=== PATIENT | male | born 1940 | race Caucasian/White ===

== ENCOUNTER 2017-07-10 20:09 | Inpatient (IN) | payer MEDICARE, SELFPAY ==
[2017-07-10] VITALS (7 sets, daily range): BP systolic 118–183; BP diastolic 74–103; PULSE 103–131; RESP 16–24; TEMP 36.6–37.2; O2SAT 95–100; BMI 37.7; BMI 37.4
--- NOTE | 2017-07-10 20:18 | EKG12_ITS ---
Test Reason : RAPID HR Blood Pressure : / mmHG Vent. Rate : 145 BPM Atrial Rate : 141 BPM P-R Int : 000 ms QRS Dur : 088 ms QT Int : 300 ms P-R-T Axes : 000 -14 025 degrees QTc Int : 466 ms Atrial fibrillation Otherwise normal ECG Reconfirmed by PATI BARROSO, JUSTIN ([id number]), editorial writer GREG FLORENCE ([id number]) on 07/14/2017 1:48:38 PM Referred By: DR BUTLER Confirmed By:JUSTIN KRUEGER MD
--- NOTE | 2017-07-10 20:18 | RAD_ITS ---
XR Chest 2 Views INDICATION: COUGH X2 WEEKS. STATES TODAY HE STARTED COUGHING UP BLOOD. HX ND COMPARISON: March 18, 2016 TECHNIQUE: 2 views of the chest FINDINGS: Heart size and pulmonary vascularity are within normal limits. Sternotomy wires are noted. Hazy airspace opacity is seen in the right middle lobe, new from previous exam. The left lung is clear. Multiple air-filled small bowel loops are seen in the upper abdomen. RAD/Chest PA and Lateral IMPRESSION: Right middle lobe opacity, may represent pneumonia, mass, or hemorrhage. Consider further migration with CT or follow-up to resolution. at 2139 Reported and signed by: Alexus Kevin MD Electronically Signed: Alexus Kevin MD at 20:37 EDT Tel , Service support ,
--- NOTE | 2017-07-10 20:19 | NURSING ---
RN CALLED FOR EKG, PULLED OLD EKG'S FOR
[2017-07-10 20:41] LABS: Absolute Lymphocyte Count 1.55 X10^3/ul (0.83-4.51); Absolute Neutrophil Count 11.6 X10^3/uL (2.0-7.7); Basophil# 0.02 X10^3/uL; Basophil% 0.1 % (0-1); Eosinophil# 0.04 X10^3/uL; Eosinophils% 0.3 % (0-5); Hemoglobin 13.1 g/dl (13.0-16.5); Lymphocyte # 1.55 X10^3/ul (4.0); Lymphocyte % 10.7 % (19-41); Mean Corpuscular Hgb 28.2 pg (27.0-32.0); Mean Corpuscular Volume 88.4 fL (80-94); Mean Platelet Vol. 10.2 fl (6.2-12.0); Monocyte# 1.29 X10^3/uL; Monocyte% 8.9 % (0-10); Neutrophil # 11.58 X10^3/uL (2.7-7.7); Neutrophil % 79.9 % (47-70); Platelet Count 221 K/mm3 (150-450); RBC Distribution Width CV 14.5 % (11.6-14.6); RBC Distribution Width SD 46.8 fl (35.1-43.9); Red Blood Count 4.64 M/mm3 (4.6-6.2); White Blood Count 14.5 K/mm3 (4.4-11.0)
[2017-07-10 20:45] LABS: International Normalized Ratio 1.4; POSITIVE COUNT NO; POSITIVE DIFFERENTIAL NO; POSITIVE MORPHOLOGY NO; Prothrombin Time (Protime)PT. 17.2 SECONDS (11.7-14.9)
[2017-07-10 20:56] LABS: Anion Gap 5 (5-15); BUN 22 mg/dL (7-18); BUN/Creat Ratio 17.5 RATIO (10-20); Calcium,Total 8.5 mg/dL (8.5-10.1); Chloride 104 mmol/L (98-107); Creatinine, Serum 1.26 mg/dL (0.70-1.30); EST Glomerular Filtration Rate 59 mL/min (>60); Est Glom Filt Rate - Afr Amer 72 mL/min (>60); Estimated Creatinine Clearance 42.42 ml/min; Glucose 109 mg/dL (74-106); Potassium 4.6 mmol/L (3.5-5.1); Sodium Level 139 mmol/L (136-145)
[2017-07-10 21:01] LABS: D-Dimer Quantitative (DVT/PE) 0.65 FEU/ug/m (0.27-0.49)
--- NOTE | 2017-07-10 21:08 | CT_ITS ---
CTA Chest WO/W Contrast INDICATION: COUGH X 2 WEEKS, HEMOPTYSIS TODAY, HX HTN,MO,CABG,DIAB COMPARISON: None TECHNIQUE: High resolution axial CT imaging of the chest during intravenous contrast administration, CTA protocol. Multiplanar and MIP reformatted images. 100 mL of Isovue-370 were given intraveniously. Radiation dose optimization technique applied. FINDINGS: There is no evidence of pulmonary arterial filling defect to suggest PE. Aortic arch demonstrates mild arteriosclerotic disease, no evidence of aneurysm formation or dissection. Heart size is enlarged. Few mildly prominent mediastinal lymph nodes are seen. There is alveolar opacity in the right middle lobe anteriorly abutting. There is no evidence of pneumothorax or pleural effusion. A radiolucent gallstone is seen in the gallbladder. CT/CTA Chest W/WO Contrast IMPRESSION: Alveolar opacities in the right middle lobe anteriorly, may represent alveolar fluid, possibly hemorrhage. Associated infection not excluded. Follow-up recommended. No evidence of pleural effusion. Reminder of the lungs are clear. at 2221 Reported and signed by: Alexus Kevin MD Electronically Signed: Alexus Kevin MD at 21:19 EDT Tel , Service support ,
--- NOTE | 2017-07-10 21:09 | ED.RN ---
DR. PAYTON AWARE OF ELEVATED D-DIMER
--- NOTE | 2017-07-10 21:13 | ED.RN ---
PT UNABLE TO VERIFY MEDICATION LIST. FAMILY AT BEDSIDE UNABLE TO GIVE LIST OF MEDICATION
[2017-07-10] MEDS: dilTIAZem 25 MG/5 ML Vial 20 MG IV BOLUS (21:46)
--- NOTE | 2017-07-10 22:29 | ED.VISSUMM ---
- ER Visit Summary Date of Service: 07/10/17 Chief Complaint: [] Hemoptysis History of Present Illness: The patient is a 77 M [] complaining of cough for 2 weeks with URI symptoms. Reports hemoptysis started proximally 8 hours ago. Denies fevers. Denies chest pain. Reports mild shortness of breath. Past medical history of CAD status post CABG, diabetes, hypertension, cholesterol, renal insufficiency. 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 Physical Examination: [] BP 159/90, temperature 98, heart rate 131, respiratory rate 16, pulse ox 96% on room air. Obese elderly male in no acute distress. Cardiovascular exam is irregularly irregular consistent with atrial fibrillation. Lung exam reveals equal breath sounds bilaterally. Diminished sounds. Abdomen is obese, soft, nontender. There is no significant lower extremity edema. Remainder of exam is unremarkable. Test Results: [] White blood cell count elevated 14.5. BMP normal. INR 1.4. Troponin negative at 0.02. D-dimer indeterminate 0.65. EKG shows atrial fibrillation with a rate of 145 with occasional PVCs. This is changed from previous EKG of normal sinus rhythm. Chest x-ray 1 view shows questionable right sided infiltrate. CT of the chest confirms questionable alveolar hemorrhage versus infiltrate. Emergency Department Course and Treatment: [] In questioning the patient about the atrial fibrillation it is unclear as a new onset dysrhythmia, however it appears he does not have a previous history of atrial fibrillation in our records. Patient was given intravenous Rocephin and azithromycin after blood cultures were obtained for the mini acquired pneumonia. Patient was given intravenous Cardizem to control his atrial fibrillation. Case discussed with hospitalist for admission. Treatment Plan: [] Intravenous antibiotics for pneumonia, medication and evaluation by cardiology for control of new onset atrial fibrillation. Disposition: [] Admit, stable Impression: [] New onset atrial fibrillation Community acquired pneumonia This note was generated with [employer] dictation software. It may contain incorrect words, spelling, and punctuation that were not noted in review of the chart prior to signing ED Disposition - Plan for ED Patient: Chief Complaint: Cough Referrals: Obed Marinelli MD [Primary Care Provider] -
--- NOTE | 2017-07-10 22:31 | PCM.HP.STD ---
Problem List (1) Obesity Status: Chronic Qualifiers: Obesity type: due to excess calories Obesity classification: adult class 2 (BMI 35 - 39.9) Serious obesity comorbidity presence: unspecified whether serious comorbidity present Body mass index: BMI 37.0-37.9 Qualified Code(s): E66.09 - Other obesity due to excess calories; Z68.37 - Body mass index (BMI) 37.0-37.9, adult (2) Hyperlipidemia Status: Chronic Qualifiers: Hyperlipidemia type: pure hypercholesterolemia Qualified Code(s): E78.00 - Pure hypercholesterolemia, unspecified; E78.0 - Pure hypercholesterolemia (3) Atherosclerotic heart disease of [place] coronary artery without angina pectoris Status: Chronic Qualifiers: [place] vs. transplanted heart: unspecified whether [place] or transplanted heart Qualified Code(s): I25.10 - Atherosclerotic heart disease of [place] coronary artery without angina pectoris (4) Ischemic cardiomyopathy Status: Chronic (5) Aortocoronary bypass status Status: Chronic Comment: CABG X 3 GUAMAN to LAD, SVG to Ramus intermedius branch of the Cx as well as lateral Cx & endovein harvesting technique (6) Hypertension Status: Chronic Qualifiers: Hypertension type: essential hypertension Qualified Code(s): I10 - Essential (primary) hypertension (7) Obstructive sleep apnea Status: Chronic (8) GERD (gastroesophageal reflux disease) Status: Chronic Qualifiers: Esophagitis presence: esophagitis presence not specified Qualified Code(s): K21.9 - Gastro-esophageal reflux disease without esophagitis (9) Diastolic congestive heart failure Status: Chronic Qualifiers: Heart failure chronicity: chronic Qualified Code(s): I50.32 - Chronic diastolic (congestive) heart failure (10) Non-ST elevation [place] (NSTEMI) Status: Chronic (11) CAD (coronary artery disease) Status: Chronic Qualifiers: Coronary Disease-Associated Artery/Lesion type: unspecified vessel or lesion type [place] vs. 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 The patient is a 77 y/o M w/ PMHx: CAD s/p CABG x 3 following w/ Dr. Moscoso, HTN, HLD, Obesity, Ischemic Cardiomyopathy, Diastolic CHF, CAROLYN, GERD, Diabetes mellitus type II who presents to the [facility] ED on 07/10/17 with ongoing productive cough, harsh per his report with mild dyspnea with onset on day of ED presentation hemoptysis and chills without fever. In the ED patient gave notable sputum Cx that was noted to have BRB in the sputum. In the ED work-up included T 98, HR 131-->108, BP 159/90-->118/94, RR 16, 96% on RA, CBC w/ WBC 14.5 HGb 13.1, Plts 221 with L shift, PT 17.2, INR 1.4, D-dimer 0.65, BMP w/ BUN/Cr 22/1.26, glucose 106, trop < 0.02, CXR w/ RML opacity with follow-up CTPA w/ alveolar opacities in the right middle lobe anteriorly technical sales representatives light cleaning of alveolar fluid with associated infection, no evidence of pleural effusion, EKG w/ new onset atrial fibrillation w/ RVR, sputum Cx obtained and pending. In the ED patient administered Cardizem 20 mg IV x 1 with improvement of rate to 110-120s. 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) Premature ventricular contractions (Chronic) Hypertension (Chronic) Obstructive sleep apnea (Chronic) GERD (gastroesophageal reflux disease) (Chronic) Morbid obesity (Chronic) Dyslipidemia (Chronic) Diastolic congestive heart failure (Chronic) Non-ST elevation [place] (NSTEMI) (Chronic) CAD (coronary artery disease) (Chronic) Diabetes (Chronic) Allergies No Known Allergies Allergy (Verified 07/10/17 20:14) Home Medications: Ambulatory Orders Medication Instructions Recorded Aspirin [Aspir-Low] 81 mg PO DAILY 03/18/16 Atorvastatin Calcium [Lipitor] 40 mg PO DAILY 03/18/16 Cholecalciferol (Vitamin D3) 2,000 unit PO DAILY 03/18/16 [Vitamin D3] Cranberry 1 tab PO DAILY 03/18/16 Insulin Regular, Human [Humulin R] 8 unit SQ BID 03/18/16 Lisinopril [Zestril] 20 mg PO QHS 03/18/16 Omeprazole [Prilosec] 20 mg PO DAILY 03/18/16 Vitamin A 1 tab PO DAILY 03/18/16 Nitroglycerin [Nitrostat] 0.4 mg SUBLINGUAL Q5M PRN #1 bottle 03/19/16 isosorbide mononitrate ER 60 mg 60 mg PO DAILY #90 tab 04/14/17 tablet,extended release 24 hr magnesium oxide 400 mg tablet 400 mg PO DAILY #90 tab 04/14/17 carvedilol 25 mg tablet 25 mg PO BID #180 tab 06/23/17 Surgical History: - - cabg 2009 Psychiatric History: No pertinent psych hx Smoking Status: Never smoker Tobacco Use: Non-smoker Alcohol: None Drugs: None - *Family History Maternal History Items: - - Mother with a history of diabetes, hypertension, TIA. Paternal History Items: - - Father with a history of coronary artery disease, [place]. Review of Systems Constitutional: Reports: Chills, Malaise, Weakness, Fatigue. Denies: Fever, Weight Change HEENT: Denies: Head Aches, Sinus Congestion, Sinus Drainage Cardiovascular: Denies: Chest Pain, Palpitations Respiratory: Reports: Cough, Hemoptysis, Shortness of Breath, Shortness of breath at rest, Shortness of breath upon exertion, Sputum production, Wheezing Gastrointestinal: Denies: Abdominal Pain, Nausea, Vomiting Genitourinary: Denies: Dysuria Musculoskeletal: Denies: Joint Pain, Joint Tenderness Skin: Denies: Rash, Wounds Neurological: Denies: Numbness, Tingling, Focal weakness Psychiatric: Denies: Anxiety, Depression, Homicidal Ideations, Suicidal Ideations VTE Information - Inpt Only VTE Present on Admission: No VTE Mechan Device Prophylaxis: SCD's VTE Pharm Prophylaxis ordered?: No Reason prophylaxis not ordered:: Medical Contraindication Patient Problems: Active and Suspected Problems Pneumonia (Acute) Atrial fibrillation with RVR (Acute) Subjective: Seated upright in the ED bed, fatigued appearance, NAD, some harsh coughing noted while in room. Objective: Physical Examination: General: awake, alert, oriented x 3 and cooperative, seated upright in the ED bed in no apparent distress, fatigued appearance. Skin: normal color, turgor, no icterus, cyanosis. HEENT: AT/NC, EOMI, PERRLA, dry MM, no carotid bruits or JVD noted. Lungs: Diminished BS, R sided, coarse, rhonchorous, expiratory wheezing, decreased effort, harsh coughing w/ increased effort. Heart: Irregular irregular; no gallop, rub audible, MSM. Abdomen: soft, obese, NTTP, ND, normal BS, no HSM; however, habitus makes examination difficult. Extremities: no cyanosis, clubbing, BL ankle. Neurological: patient awake, alert, oriented x 3; cognitive function intact; pupils equally reactive to light and accomodation; cranial nerves II-XII grossly normal, moving all 4 extremities, no focal deficits, strength severely globally decreased secondary to acute presentation. Psychiatric: affect appears mildly flat, no acute evidence of depressive or anxiety feelings. - Physical Exam Vital Signs Temp Pulse Resp BP Pulse Ox 98 F 108 H 21 H 118/94 H 97 07/10/17 20:09 07/10/17 22:25 07/10/17 22:25 07/10/17 22:25 07/10/17 22:25 Oxygen Flow Rate (L/min) 2 Oxygen Delivery Method Nasal Cannula Weight: 219 lb 12.814 oz Body Mass Index (BMI) 37.7 Laboratory Tests Past 24 Hrs 07/10/17 07/10/17 07/10/17 20:23 20:23 20:23 WBC 14.5 H RBC 4.64 Hgb 13.1 Hct 41.0 MCV 88.4 MCH 28.2 MCHC 32.0 RDW 14.5 RDW Differential 46.8 H Plt Count 221 MPV 10.2 Immature Gran % (Auto) 0.100 Neut % (Auto) 79.9 H Lymph % (Auto) 10.7 L [place] % (Auto) 8.9 Eos % (Auto) 0.3 Baso % (Auto) 0.1 Absolute Neuts (auto) 11.6 H Absolute Lymphs (auto) 1.55 Total Counted Not Reportable PT 17.2 H INR 1.4 D-Dimer Quant (PE/DVT) 0.65 H* Sodium 139 Potassium 4.6 Chloride 104 Carbon Dioxide 30.0 Anion Gap 5 BUN 22 H Creatinine 1.26 Estim Creat Clear Calc 42.42 Est GFR (MDRD) Af Amer 72 Est GFR (MDRD) Non-Af 59 L BUN/Creatinine Ratio 17.5 Glucose 109 H Calcium 8.5 Troponin I < 0.02 Assessment/Plan Active and Suspected Problems Pneumonia (Acute) Atrial fibrillation with RVR (Acute) The patient is a 77 y/o M w/ PMHx: CAD s/p CABG x 3 following w/ Dr. Moscoso, HTN, HLD, Obesity, Ischemic Cardiomyopathy, Diastolic CHF, CAROLYN, GERD, Diabetes mellitus type II who presents to the [facility] ED on 07/10/17 with ongoing productive cough, harsh per his report with mild dyspnea with onset on day of ED presentation hemoptysis and chills without fever. (1) Community Acquired Pneumonia: CXR in the ED w/ RML PNA, CTPA w/ findings RML, also concurrent onset on day of presentation of hemoptysis. Admission CBC w/ WBC 14.5, hemoglobin 13.1, platelet 221 with left shift. Will maintain on oxygen with wean as tolerated to room air, continue ATC duonebs, PRN albuterol, maintained on IV Rocephin and Azithromycin, HOB, IS parameters w/ pending sputum cultures and urine antigens. Pending ED Bld Cx also. Given abnormal appearing CTPA with RML changes and notable hemoptysis will request pulmonary evaluation also. (2) New onset, Paroxsymal atrial fibrillation w/ RVR: EKG in ED w/ atrial fibrillation w/ RVR. Patient administered Cardizem 20 mg IV ?1 in ED. Will admit to PCU, maintain on telemetry, obtain cardiac enzyme serial set, obtain magnesium level, obtain ECHO given remotely performed 2015, obtain TSH level. CHADs scoring appropriate for anticoagulation start at this time; however, patient concurrent presentation w/ CAP and this is concerning thus will forego anticoagulation and also hold any chemoprophylaxis. Will maintain on cardizem drip given ongoing elevated rate in the ED. Consider Cardiology assessment if not improving w/ treatment with drip and treatment concurrent CAP as noted #1. (3) Chronic Diastolic CHF, Ischemic Cardiomyopathy: Holding ASA, conptinue home statin, BB, ACEI. 03/18/16 ECHO w/ normal LV size, EF 55%, moderate concentric LVH. (4) CAD: s/p CABG x 3, following w/ Dr. Moscoso, holding ASA, continue home statin, BB. (5) Hypertension: Continue home regimen including coreg, lisinopril, isosorbide with hold parameters, PRN hydralazine. (6) Hyperlipidemia: Maintain on home statin. (7) CAROLYN: CPAP q HS. (8) GERD: Famotidine. (9) Diabetes mellitus type II: Hold oral home regimen, continue home insulin regimen, ADA diet, accu checks w/ ISS. (10) DVT Prophylaxis: SCDs, defer chemoprophylaxis given notable hemoptysis presentation. (11) CODE status: Discussed CODE status at length given notable comorbidities and acute presentation, including difference between FULL code, DNR-CCA and DNR-CC status. Following discussions about the differences in these status, requested FULL code status. Advanced Care Planning Face to Face Time: 18 minutes. Code Visit Inpatient E&M: 95511 Init Hosp L3 Procedures: 44943 Advncd Care Plan 30 Min
--- NOTE | 2017-07-10 22:33 | ED.DCSUM_ITS ---
- ER Visit Summary Date of Service: 07/10/17 Chief Complaint: [] Hemoptysis History of Present Illness: The patient is a 77 M [] complaining of cough for 2 weeks with URI symptoms. Reports hemoptysis started proximally 8 hours ago. Denies fevers. Denies chest pain. Reports mild shortness of breath. Past medical history of CAD status post CABG, diabetes, hypertension, cholesterol, renal insufficiency. 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 Physical Examination: [] BP 159/90, temperature 98, heart rate 131, respiratory rate 16, pulse ox 96% on room air. Obese elderly male in no acute distress. Cardiovascular exam is irregularly irregular consistent with atrial fibrillation. Lung exam reveals equal breath sounds bilaterally. Diminished sounds. Abdomen is obese, soft, nontender. There is no significant lower extremity edema. Remainder of exam is unremarkable. Test Results: [] White blood cell count elevated 14.5. BMP normal. INR 1.4. Troponin negative at 0.02. D-dimer indeterminate 0.65. EKG shows atrial fibrillation with a rate of 145 with occasional PVCs. This is changed from previous EKG of normal sinus rhythm. Chest x-ray 1 view shows questionable right sided infiltrate. CT of the chest confirms questionable alveolar hemorrhage versus infiltrate. Emergency Department Course and Treatment: [] In questioning the patient about the atrial fibrillation it is unclear as a new onset dysrhythmia, however it appears he does not have a previous history of atrial fibrillation in our records. Patient was given intravenous Rocephin and azithromycin after blood cultures were obtained for the mini acquired pneumonia. Patient was given intravenous Cardizem to control his atrial fibrillation. Case discussed with hospitalist for admission. Treatment Plan: [] Intravenous antibiotics for pneumonia, medication and evaluation by cardiology for control of new onset atrial fibrillation. Disposition: [] Admit, stable Impression: [] New onset atrial fibrillation Community acquired pneumonia This note was generated with [email or web address] dictation software. It may contain incorrect words, spelling, and punctuation that were not noted in review of the chart prior to signing ED Disposition - Plan for ED Patient: Chief Complaint: Cough Referrals: Obed Marinelli MD [Primary Care Provider] -
--- NOTE | 2017-07-10 22:46 | HP.PCM_ITS ---
Problem List (1) Obesity Status: Chronic Qualifiers: Obesity type: due to excess calories Obesity classification: adult class 2 (BMI 35 - 39.9) Serious obesity comorbidity presence: unspecified whether serious comorbidity present Body mass index: BMI 37.0-37.9 Qualified Code(s) : E66.09 - Other obesity due to excess calories; Z68.37 - Body mass index (BMI) 37.0-37.9, adult (2) Hyperlipidemia Status: Chronic Qualifiers: Hyperlipidemia type: pure hypercholesterolemia Qualified Code(s): E78.00 - Pure hypercholesterolemia, unspecified; E78.0 - Pure hypercholesterolemia (3) Atherosclerotic heart disease of [place] coronary artery without angina pectoris Status: Chronic Qualifiers: [place] vs. transplanted heart: unspecified whether [place] or transplanted heart Qualified Code(s): I25.10 - Atherosclerotic heart disease of [place] coronary artery without angina pectoris (4) Ischemic cardiomyopathy Status: Chronic (5) Aortocoronary bypass status Status: Chronic Comment: CABG X 3 GUAMAN to LAD, SVG to Ramus intermedius branch of the Cx as well as lateral Cx & endovein harvesting technique (6) Hypertension Status: Chronic Qualifiers: Hypertension type: essential hypertension Qualified Code(s): I10 - Essential (primary) hypertension (7) Obstructive sleep apnea Status: Chronic (8) GERD (gastroesophageal reflux disease) Status: Chronic Qualifiers: Esophagitis presence: esophagitis presence not specified Qualified Code(s) : K21.9 - Gastro-esophageal reflux disease without esophagitis (9) Diastolic congestive heart failure Status: Chronic Qualifiers: Heart failure chronicity: chronic Qualified Code(s): I50.32 - Chronic diastolic (congestive) heart failure (10) Non-ST elevation [place] (NSTEMI) Status: Chronic (11) CAD (coronary artery disease) Status: Chronic Qualifiers: Coronary Disease-Associated Artery/Lesion type: unspecified vessel or lesion type [place] vs. transplanted heart: unspecified whether [place] or transplanted heart Associated angina: angina presence unspecified Qualified Code(s): I25.10 - Atherosclerotic heart disease of [place] coronary artery without angina pectoris (12) Diabetes Status: Chronic Qualifiers: Diabetes mellitus type: type 2 Diabetes mellitus group home insulin use: with manager terminal use Diabetes mellitus complication status: with unspecified complications Qualified Code(s): E11.8 - Type 2 diabetes mellitus with unspecified complications; Z79.4 - MCC (current) use of insulin (13) Pneumonia Status: Acute Qualifiers: Pneumonia type: due to unspecified organism Laterality: right Lung location: middle lobe of lung Qualified Code(s): J18.1 - Lobar pneumonia, unspecified organism (14) Atrial fibrillation with RVR Status: Acute History of Present Illness Date of Admission: 07/10/17 Chief Complaint: Cough, congestion. The patient is a 77 y/o M w/ PMHx: CAD s/p CABG x 3 following w/ Dr. Moscoso, HTN , HLD, Obesity, Ischemic Cardiomyopathy, Diastolic CHF, CAROLYN, GERD, Diabetes mellitus type II who presents to the [facility] ED on 07/10/17 with ongoing productive cough, harsh per his report with mild dyspnea with onset on day of ED presentation hemoptysis and chills without fever. In the ED patient gave notable sputum Cx that was noted to have BRB in the sputum. 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 In the ED patient administered Cardizem 20 mg IV x 1 with improvement of rate to 110-120s. 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) Premature ventricular contractions (Chronic) Hypertension (Chronic) Obstructive sleep apnea (Chronic) GERD (gastroesophageal reflux disease) (Chronic) Morbid obesity (Chronic) Dyslipidemia (Chronic) Diastolic congestive heart failure (Chronic) Non-ST elevation [place] (NSTEMI) (Chronic) CAD (coronary artery disease) (Chronic) Diabetes (Chronic) Allergies No Known Allergies Allergy (Verified 07/10/17 20:14) Home Medications: Ambulatory Orders Medication Instructions Recorded Aspirin [Aspir-Low] 81 mg PO DAILY 03/18/16 Atorvastatin Calcium [Lipitor] 40 mg PO DAILY 03/18/16 Cholecalciferol (Vitamin D3) 2,000 unit PO DAILY 03/18/16 [Vitamin D3] Cranberry 1 tab PO DAILY 03/18/16 Insulin Regular, Human [Humulin R] 8 unit SQ BID 03/18/16 Lisinopril [Zestril] 20 mg PO QHS 03/18/16 Omeprazole [Prilosec] 20 mg PO DAILY 03/18/16 Vitamin A 1 tab PO DAILY 03/18/16 Nitroglycerin [Nitrostat] 0.4 mg SUBLINGUAL Q5M PRN #1 bottle 03/19/16 isosorbide mononitrate ER 60 mg 60 mg PO DAILY #90 tab 04/14/17 tablet,extended release 24 hr magnesium oxide 400 mg tablet 400 mg PO DAILY #90 tab 04/14/17 carvedilol 25 mg tablet 25 mg PO BID #180 tab 06/23/17 Surgical History: - - cabg 2009 Psychiatric History: No pertinent psych hx Smoking Status: Never smoker Tobacco Use: Non-smoker Alcohol: None Drugs: None - *Family History Maternal History Items: - - Mother with a history of diabetes, hypertension, TIA. Paternal History Items: - - Father with a history of coronary artery disease, [place]. Review of Systems Constitutional: Reports: Chills, Malaise, Weakness, Fatigue. Denies: Fever, Weight Change HEENT: Denies: Head Aches, Sinus Congestion, Sinus Drainage Cardiovascular: Denies: Chest Pain, Palpitations Respiratory: Reports: Cough, Hemoptysis, Shortness of Breath, Shortness of breath at rest, Shortness of breath upon exertion, Sputum production, Wheezing Gastrointestinal: Denies: Abdominal Pain, Nausea, Vomiting Genitourinary: Denies: Dysuria Musculoskeletal: Denies: Joint Pain, Joint Tenderness Skin: Denies: Rash, Wounds Neurological: Denies: Numbness, Tingling, Focal weakness Psychiatric: Denies: Anxiety, Depression, Homicidal Ideations, Suicidal Ideations VTE Information - Inpt Only VTE Present on Admission: No VTE Mechan Device Prophylaxis: SCD's VTE Pharm Prophylaxis ordered?: No Reason prophylaxis not ordered:: Medical Contraindication Patient Problems: Active and Suspected Problems Pneumonia (Acute) Atrial fibrillation with RVR (Acute) Subjective: Seated upright in the ED bed, fatigued appearance, NAD, some harsh coughing noted while in room. Objective: Physical Examination: General: awake, alert, oriented x 3 and cooperative, seated upright in the ED bed in no apparent distress, fatigued appearance. Skin: normal color, turgor, no icterus, cyanosis. HEENT: AT/NC, EOMI, PERRLA, dry MM, no carotid bruits or JVD noted. Lungs: Diminished BS, R sided, coarse, rhonchorous, expiratory wheezing, decreased effort, harsh coughing w/ increased effort. Heart: Irregular irregular; no gallop, rub audible, MSM. Abdomen: soft, obese, NTTP, ND, normal BS, no HSM; however, habitus makes examination difficult. Extremities: no cyanosis, clubbing, BL ankle. Neurological: patient awake, alert, oriented x 3; cognitive function intact; pupils equally reactive to light and accomodation; cranial nerves II-XII grossly normal, moving all 4 extremities, no focal deficits, strength severely globally decreased secondary to acute presentation. Psychiatric: affect appears mildly flat, no acute evidence of depressive or anxiety feelings. - Physical Exam Vital Signs Temp Pulse Resp BP Pulse Ox 98 F 108 H 21 H 118/94 H 97 07/10/17 20:09 07/10/17 22:25 07/10/17 22:25 07/10/17 22:25 07/10/17 22:25 Oxygen Flow Rate (L/min) 2 Oxygen Delivery Method Nasal Cannula Weight: 219 lb 12.814 oz Body Mass Index (BMI) 37.7 Laboratory Tests Past 24 Hrs 07/10/17 07/10/17 07/10/17 20:23 20:23 20:23 WBC 14.5 H RBC 4.64 Hgb 13.1 Hct 41.0 MCV 88.4 MCH 28.2 MCHC 32.0 RDW 14.5 RDW Differential 46.8 H Plt Count 221 MPV 10.2 Immature Gran % (Auto) 0.100 Neut % (Auto) 79.9 H Lymph % (Auto) 10.7 L [place] % (Auto) 8.9 Eos % (Auto) 0.3 Baso % (Auto) 0.1 Absolute Neuts (auto) 11.6 H Absolute Lymphs (auto) 1.55 Total Counted Not Reportable PT 17.2 H INR 1.4 D-Dimer Quant (PE/DVT) 0.65 H* Sodium 139 Potassium 4.6 Chloride 104 Carbon Dioxide 30.0 Anion Gap 5 BUN 22 H Creatinine 1.26 Estim Creat Clear Calc 42.42 Est GFR (MDRD) Af Amer 72 Est GFR (MDRD) Non-Af 59 L BUN/Creatinine Ratio 17.5 Glucose 109 H Calcium 8.5 Troponin I < 0.02 Assessment/Plan Active and Suspected Problems Pneumonia (Acute) Atrial fibrillation with RVR (Acute) The patient is a 77 y/o M w/ PMHx: CAD s/p CABG x 3 following w/ Dr. Moscoso, HTN , HLD, Obesity, Ischemic Cardiomyopathy, Diastolic CHF, CAROLYN, GERD, Diabetes mellitus type II who presents to the [facility] ED on 07/10/17 with ongoing productive cough, harsh per his report with mild dyspnea with onset on day of ED presentation hemoptysis and chills without fever. (1) Community Acquired Pneumonia: CXR in the ED w/ RML PNA, CTPA w/ findings RML , also concurrent onset on day of presentation of hemoptysis. Admission CBC w/ WBC 14.5, hemoglobin 13.1, platelet 221 with left shift. Will maintain on oxygen with wean as tolerated to room air, continue ATC duonebs, PRN albuterol, maintained on IV Rocephin and Azithromycin, HOB, IS parameters w/ pending sputum cultures and urine antigens. Pending ED Bld Cx also. Given abnormal appearing CTPA with RML changes and notable hemoptysis will request pulmonary evaluation also. (2) New onset, Paroxsymal atrial fibrillation w/ RVR: EKG in ED w/ atrial fibrillation w/ RVR. Patient administered Cardizem 20 mg IV ?1 in ED. Will admit to PCU, maintain on telemetry, obtain cardiac enzyme serial set, obtain magnesium level, obtain ECHO given remotely performed 2015, obtain TSH level. CHADs scoring appropriate for anticoagulation start at this time; however, patient concurrent presentation w/ CAP and this is concerning thus will forego anticoagulation and also hold any chemoprophylaxis. Will maintain on cardizem drip given ongoing elevated rate in the ED. Consider Cardiology assessment if not improving w/ treatment with drip and treatment concurrent CAP as noted #1. (3) Chronic Diastolic CHF, Ischemic Cardiomyopathy: Holding ASA, conptinue home statin, BB, ACEI. 03/18/16 ECHO w/ normal LV size, EF 55%, moderate concentric LVH. (4) CAD: s/p CABG x 3, following w/ Dr. Moscoso, holding ASA, continue home statin , BB. (5) Hypertension: Continue home regimen including coreg, lisinopril, isosorbide with hold parameters, PRN hydralazine. (6) Hyperlipidemia: Maintain on home statin. (7) CAROLYN: CPAP q HS. (8) GERD: Famotidine. (9) Diabetes mellitus type II: Hold oral home regimen, continue home insulin regimen, ADA diet, accu checks w/ ISS. (10) DVT Prophylaxis: SCDs, defer chemoprophylaxis given notable hemoptysis presentation. (11) CODE status: Discussed CODE status at length given notable comorbidities and acute presentation, including difference between FULL code, DNR-CCA and DNR- CC status. Following discussions about the differences in these status, requested FULL code status. Advanced Care Planning Face to Face Time: 18 minutes. Code Visit Inpatient E&M: 03105 Init Hosp L3 Procedures: 23783 Advncd Care Plan 30 Min
[2017-07-11] VITALS (39 sets, daily range): BP systolic 112–148; BP diastolic 53–97; PULSE 60–106; RESP 15–29; TEMP 36.6–37.4; O2SAT 93–100
[2017-07-11] MEDS: 0.9% Normal Saline 1,000 ML 125 ML IV (00:20)
[2017-07-11 00:49] LABS: Thyroid Stim Hormone (TSH) 0.61 uIU/mL (0.358-3.74)
[2017-07-11 01:21] LABS: Bedside Glucose 158 mg/dL (70-110)
[2017-07-11] MEDS: Ipratropium/Albuterol Sulfate 3 ML AMPUL.NEB INHALATION ×6 (03:40→22:18)
--- NOTE | 2017-07-11 04:15 | CPS ---
Pt wants to wear his own cpap.Pt will contact family to bring his in.
[2017-07-11 05:32] LABS: Hematocrit 33.4 % (40-54); Hemoglobin 10.7 g/dl (13.0-16.5); Mean Corpuscular Hgb 28.5 pg (27.0-32.0); Mean Corpuscular Volume 89.1 fL (80-94); Mean Platelet Vol. 10.2 fl (6.2-12.0); Platelet Count 172 K/mm3 (150-450); RBC Distribution Width CV 14.5 % (11.6-14.6); RBC Distribution Width SD 45.9 fl (35.1-43.9); Red Blood Count 3.75 M/mm3 (4.6-6.2); White Blood Count 9.9 K/mm3 (4.4-11.0)
[2017-07-11 05:39] LABS: Scan Indicated on CBC? Y/N NO
[2017-07-11 05:44] LABS: Anion Gap 7 (5-15); BUN 17 mg/dL (7-18); BUN/Creat Ratio 17.6 RATIO (10-20); Calcium,Total 7.7 mg/dL (8.5-10.1); Chloride 105 mmol/L (98-107); Cholesterol 107 mg/dL (200); Creatinine, Serum 0.97 mg/dL (0.70-1.30); EST Glomerular Filtration Rate 81 mL/min (>60); Est Glom Filt Rate - Afr Amer 97 mL/min (>60); Glucose 108 mg/dL (74-106); High Density Lipoprotein 31 mg/dL; Potassium 4.5 mmol/L (3.5-5.1); Sodium Level 139 mmol/L (136-145); Triglycerides 59 mg/dL; Very Low Density Lipoprotein 12 mg/dL (5-40)
--- NOTE | 2017-07-11 05:55 | ECHOCS_ITS ---
Reason For Study: AFIB/FLUTTER Procedure This was a 2D Doppler, Color Flow transthoracic echocardiogram. The study was technically difficult. Contrast injection was performed. Exam performed portable in patient room. Left Ventricle Normal LV size. Mild concentric left ventricular hypertrophy. Left ventricular systolic function is normal. The estimated ejection fraction is 55 %. Unable to assess diastolic dysfunction. No regional wall motion abnormalities noted. Right Ventricle Normal RV size. Normal systolic function. Atria The left atrium is moderately enlarged. Normal right atrium. Mitral Valve Normal mitral valve. Tricuspid Valve Normal tricuspid valve. Mild to moderate (1-2+) tricuspid valve insufficiency. Pulmonary artery systolic pressure is 39 mmHg. Aortic Valve Trisinus/trileaflet aortic valve. Mild focal aortic valve thickening. Pulmonic Valve The pulmonic valve is not well visualized. Great Vessels Normal aortic root. The pulmonary artery is normal size. Pericardium/Pleural No pericardial effusion. Medication Diluted definity 3.0ml given slow IV push to enhance endocardial definition. MMode/2D Measurements & Calculations LVIDd: 5.4 cm IVSd: 1.3 cm Ao root diam: 3.4 cm LVIDs: 4.0 cm LVPWd: 1.3 cm LA dimension: 4.4 cm RVDd: 4.2 cm FS: 24.9 % LAV(MOD-bp): 94.6 ml LAV(MOD-bp) Indexed: 46.4 ml/m2 LA A4 area: 27.4 cm2 RA A4 area: 21.0 cm2 LAV(MOD-sp2): 88.9 ml LAV(MOD-sp4): 87.9 ml Doppler Measurements & Calculations MV E max reyes: 99.5 cm/sec Ao V2 max: 197.8 cm/sec LV V1 max: 90.1 cm/sec Ao max P.8 mmHg LV V1 max P.3 mmHg Ao V2 mean: 151.4 cm/sec LV V1 mean P.8 mmHg Ao mean P.0 mmHg LV V1 mean: 63.6 cm/sec Ao V2 VTI: 43.2 cm LV V1 VTI: 18.3 cm PA V2 max: 95.5 cm/sec PI dec slope: 124.6 cm/sec2 TR max reyes: 294.5 cm/sec TR max P.9 mmHg Interpretation Summary Normal LV size. Mild concentric left ventricular hypertrophy. Left ventricular systolic function is normal. The estimated ejection fraction is 55 %. Pulmonary artery systolic pressure is 39 mmHg. Contrast injection was performed. Compared to prior study, there is no significant change. Ordering Physician: Shanita Martinez Referring Physician: Obed Marinelli Performed By: Amada Penn RDCS, RVT
[2017-07-11 07:21] LABS: Bedside Glucose 101 mg/dL (70-110)
--- NOTE | 2017-07-11 08:33 | PCM.CONS.GEN ---
Reason for Consult Date of Consultation: 07/11/17 Reason for Consultation: Hemoptysis History of Present Illness: The patient is a 77-year-old male, with a history as outlined below, who presented to the emergency department on July 10 with complaints of shortness of breath, cough and hemoptysis. The patient reports that his cough and subsequent hemoptysis began the day prior to his arrival to the hospital. He denies ever having experienced an episode similar to this previously. With the exception of a baby aspirin, the patient is not on any blood thinners in his home environment. He is a lifelong non-smoker. He denies the presence of fevers, chills or night sweats. His weight has been stable. On presentation to the hospital, the patient was noted to be afebrile, tachycardic and mildly hypertensive with a blood pressure of 159/90. The patient was initially maintaining appropriate oxygen saturations on room air. Initial laboratory evaluation revealed an elevated white blood cell count 15,000. The patient did have an elevated d-dimer level to 0.65. Chemistry profile revealed acute kidney injury with creatinine 1.26. Troponins were negative. MRSA screen was negative. Chest CTA revealed right middle lobe airspace disease. The patient was given supplemental IV fluid hydration and started on ceftriaxone and azithromycin. He was subsequently transferred to the PCU for ongoing management. 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) Premature ventricular contractions (Chronic) Hypertension (Chronic) Obstructive sleep apnea (Chronic) GERD (gastroesophageal reflux disease) (Chronic) Morbid obesity (Chronic) Dyslipidemia (Chronic) Diastolic congestive heart failure (Chronic) Non-ST elevation [place] (NSTEMI) (Chronic) CAD (coronary artery disease) (Chronic) Diabetes (Chronic) Allergies No Known Allergies Allergy (Verified 07/10/17 20:14) Home Medications: Ambulatory Orders Medication Instructions Recorded Aspirin [Aspir-Low] 81 mg PO DAILY 03/18/16 Atorvastatin Calcium [Lipitor] 40 mg PO DAILY 03/18/16 Cholecalciferol (Vitamin D3) 2,000 unit PO DAILY 03/18/16 [Vitamin D3] Cranberry 1 tab PO DAILY 03/18/16 Insulin Regular, Human [Humulin R] 8 unit SQ BID 03/18/16 Lisinopril [Zestril] 20 mg PO QHS 03/18/16 Omeprazole [Prilosec] 20 mg PO DAILY 03/18/16 Vitamin A 1 tab PO DAILY 03/18/16 Nitroglycerin [Nitrostat] 0.4 mg SUBLINGUAL Q5M PRN #1 bottle 03/19/16 isosorbide mononitrate ER 60 mg 60 mg PO DAILY #90 tab 04/14/17 tablet,extended release 24 hr magnesium oxide 400 mg tablet 400 mg PO DAILY #90 tab 04/14/17 carvedilol 25 mg tablet 25 mg PO BID #180 tab 06/23/17 Surgical History: - - cabg 2009 Psychiatric History: No pertinent psych hx Smoking Status: Never smoker Tobacco Use: Non-smoker Alcohol: None Drugs: None - *Family History Maternal History Items: - - Mother with a history of diabetes, hypertension, TIA. Paternal History Items: - - Father with a history of coronary artery disease, [place]. Review of Systems Constitutional: Denies: Chills, Fever, Night Sweats, Weight Change Eyes: Denies: Blurred vision, Double vision HEENT: Denies: Head Aches, Sinus Congestion, Sinus Drainage Cardiovascular: Denies: Chest Pain, Palpitations Respiratory: Reports: Cough, Hemoptysis, Shortness of Breath Gastrointestinal: Denies: Abdominal Pain, Nausea, Vomiting Genitourinary: Denies: Dysuria Musculoskeletal: Denies: Joint Pain, Joint Tenderness Skin: Denies: Rash, Wounds Neurological: Denies: Numbness, Tingling, Focal weakness Psychiatric: Denies: Anxiety, Depression, Homicidal Ideations, Suicidal Ideations Hematologic/ Lymphatic: Reports: Anemia Patient Problems: Active and Suspected Problems Pneumonia (Acute) Atrial fibrillation with RVR (Acute) Objective: The patient's most recent lab work, culture data and imaging studies have all been personally reviewed. Strep and urine Legionella antigens were both negative. Respiratory viral panel is pending. Blood and sputum culture are pending. - Physical Exam General: Alert, Oriented x3, Cooperative, No apparent distress HEENT: Atraumatic, PERRLA, Normocephalic Oral: Moist Mucosa, No Gingival or Mucosal Lesions/ Ulcerations Neck: Supple, No Nodes, Trachea Midline Lungs: No rhonchi, No wheeze, Rales - Basilar Cardiovascular: Normal S1, Normal S2, No murmurs, Irregular Rate, No rub noted, No Gallop Abdomen: Bowel Sounds Present, Soft, Non Tender Extremities: No clubbing, No cyanosis, No edema Skin: No rashes, No breakdown Musculoskeletal: No Tenderness to Palpation of Joints or Extremities Lymphatic: No Cervical, Supraclavicular, or Inguinal Adenopathy Neurological: Neuro grossly intact Psych/Mental Status: Alert and oriented to time, place, person, mood and affect Vital Signs Temp Pulse Resp BP Pulse Ox 98.2 F 78 25 H 139/78 H 98 07/11/17 08:00 07/11/17 08:00 07/11/17 08:00 07/11/17 08:00 07/11/17 08:00 Oxygen Flow Rate (L/min) 2 Oxygen Delivery Method Nasal Cannula Weight: 221 lb 5.506 oz Body Mass Index (BMI) 37.4 Intake and Output for Last 24 Hours 07/09/17 07/10/17 07/11/17 23:59 23:59 23:59 Intake Total 1295 / 1295 Output Total 875 / 875 Balance 420 / 420 Microbiology Past 72 Hours 07/11/17 02:55 Legionella Antigen - Final Urine, Clean Catch 07/11/17 02:55 Streptococcus pneumoniae Antigen (M - Final Urine, Clean Catch Laboratory Tests Past 24 Hrs 07/11/17 07/11/17 07/11/17 00:17 05:00 05:00 WBC 9.9 RBC 3.75 L Hgb 10.7 L Hct 33.4 L MCV 89.1 MCH 28.5 MCHC 32.0 RDW 14.5 RDW Differential 45.9 H Plt Count 172 MPV 10.2 Sodium 139 Potassium 4.5 Chloride 105 Carbon Dioxide 27.0 Anion Gap 7 BUN 17 Creatinine 0.97 Estim Creat Clear Calc 55.10 Est GFR (MDRD) Af Amer 97 Est GFR (MDRD) Non-Af 81 BUN/Creatinine Ratio 17.6 Glucose 108 H Calcium 7.7 L Troponin I < 0.02 < 0.02 Triglycerides 59 Cholesterol 107 LDL Cholesterol 64 VLDL Cholesterol 12 HDL Cholesterol 31 L MRSA (PCR) 07/11/17 08:25 WBC RBC Hgb Hct MCV MCH MCHC RDW RDW Differential Plt Count MPV Sodium Potassium Chloride Carbon Dioxide Anion Gap BUN Creatinine Estim Creat Clear Calc Est GFR (MDRD) Af Amer Est GFR (MDRD) Non-Af BUN/Creatinine Ratio Glucose Calcium Troponin I Triglycerides Cholesterol LDL Cholesterol VLDL Cholesterol HDL Cholesterol MRSA (PCR) Pending POC Glucose 07/11/17 07/11/17 07:08 01:13 POC Glucose 101 158 H Clinical Impression(s) from Imaging Studies Chest X-Ray 07/10/17 20:18 IMPRESSION: Right middle lobe opacity, may represent pneumonia, mass, or hemorrhage. Consider further migration with CT or follow-up to resolution. at 2139 Reported and signed by: Alexus Kevin MD Electronically Signed: Alexus Kevin MD at 20:37 EDT Tel , Service support , Chest CTA 07/10/17 21:08 IMPRESSION: Alveolar opacities in the right middle lobe anteriorly, may represent alveolar fluid, possibly hemorrhage. Associated infection not excluded. Follow-up recommended. No evidence of pleural effusion. Reminder of the lungs are clear. at 2221 Reported and signed by: Alexus Kevin MD Electronically Signed: Alexus Kevin MD at 21:19 EDT Tel , Service support , Assessment/Plan Active and Suspected Problems Pneumonia (Acute) Atrial fibrillation with RVR (Acute) RECOMMENDATIONS: 1. Continue antibiotics as ordered. 2. Will monitor the patient clinically. If the patient's hemoptysis does not resolve or worsens, would need to consider bronchoscopy 3. Continue Cardizem, pending input from cardiology 4. Continue sliding scale insulin coverage 5. Encourage incentive spirometer use and mobilize patient as tolerated. IMPRESSIONS: 1. Hemoptysis in the setting of community-acquired pneumonia Continue treatment with ceftriaxone and azithromycin, pending finalized infectious workup. Hemoptysis is likely secondary to underlying pulmonary infection. We will continue to monitor expectantly on antibiotics. If the patient does not improve clinically or worsens, may need to consider bronchoscopy for formal airway evaluation. 2. Known obstructive sleep apnea Continue nocturnal CPAP therapy. 3. Atrial fibrillation with RVR Continue Cardizem as ordered. No anticoagulation for now given issues with hemoptysis. Cardiology consultation is pending. 4. GERD/hypertension/diabetes/hyperlipidemia Complicates care, management, recovery and prognosis. Likely okay to continue home medications. Continue sliding scale insulin coverage for now. This note was generated with [email or web address] dictation software. It may contain incorrect words, spelling, and punctuation that were not noted in checking the note before signing. Code Visit Inpatient E&M: 20141 Init Hosp L3
--- NOTE | 2017-07-11 08:36 | CON.PCM_ITS ---
Reason for Consult Date of Consultation: 07/11/17 Reason for Consultation: Hemoptysis History of Present Illness: The patient is a 77-year-old male, with a history as outlined below, who presented to the emergency department on July 10 with complaints of shortness of breath, cough and hemoptysis. The patient reports that his cough and subsequent hemoptysis began the day prior to his arrival to the hospital. He denies ever having experienced an episode similar to this previously. With the exception of a baby aspirin, the patient is not on any blood thinners in his home environment. He is a lifelong non-smoker. He denies the presence of fevers, chills or night sweats. His weight has been stable. On presentation to the hospital, the patient was noted to be afebrile, tachycardic and mildly hypertensive with a blood pressure of 159/90. The patient was initially maintaining appropriate oxygen saturations on room air. Initial laboratory evaluation revealed an elevated white blood cell count 15, 000. The patient did have an elevated d-dimer level to 0.65. Chemistry profile revealed acute kidney injury with creatinine 1.26. Troponins were negative. MRSA screen was negative. Chest CTA revealed right middle lobe airspace disease. The patient was given supplemental IV fluid hydration and started on ceftriaxone and azithromycin. He was subsequently transferred to the PCU for ongoing management. 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) Premature ventricular contractions (Chronic) Hypertension (Chronic) Obstructive sleep apnea (Chronic) GERD (gastroesophageal reflux disease) (Chronic) Morbid obesity (Chronic) Dyslipidemia (Chronic) Diastolic congestive heart failure (Chronic) Non-ST elevation [place] (NSTEMI) (Chronic) CAD (coronary artery disease) (Chronic) Diabetes (Chronic) Allergies No Known Allergies Allergy (Verified 07/10/17 20:14) Home Medications: Ambulatory Orders Medication Instructions Recorded Aspirin [Aspir-Low] 81 mg PO DAILY 03/18/16 Atorvastatin Calcium [Lipitor] 40 mg PO DAILY 03/18/16 Cholecalciferol (Vitamin D3) 2,000 unit PO DAILY 03/18/16 [Vitamin D3] Cranberry 1 tab PO DAILY 03/18/16 Insulin Regular, Human [Humulin R] 8 unit SQ BID 03/18/16 Lisinopril [Zestril] 20 mg PO QHS 03/18/16 Omeprazole [Prilosec] 20 mg PO DAILY 03/18/16 Vitamin A 1 tab PO DAILY 03/18/16 Nitroglycerin [Nitrostat] 0.4 mg SUBLINGUAL Q5M PRN #1 bottle 03/19/16 isosorbide mononitrate ER 60 mg 60 mg PO DAILY #90 tab 04/14/17 tablet,extended release 24 hr magnesium oxide 400 mg tablet 400 mg PO DAILY #90 tab 04/14/17 carvedilol 25 mg tablet 25 mg PO BID #180 tab 06/23/17 Surgical History: - - cabg 2009 Psychiatric History: No pertinent psych hx Smoking Status: Never smoker Tobacco Use: Non-smoker Alcohol: None Drugs: None - *Family History Maternal History Items: - - Mother with a history of diabetes, hypertension, TIA. Paternal History Items: - - Father with a history of coronary artery disease, [place]. Review of Systems Constitutional: Denies: Chills, Fever, Night Sweats, Weight Change Eyes: Denies: Blurred vision, Double vision HEENT: Denies: Head Aches, Sinus Congestion, Sinus Drainage Cardiovascular: Denies: Chest Pain, Palpitations Respiratory: Reports: Cough, Hemoptysis, Shortness of Breath Gastrointestinal: Denies: Abdominal Pain, Nausea, Vomiting Genitourinary: Denies: Dysuria Musculoskeletal: Denies: Joint Pain, Joint Tenderness Skin: Denies: Rash, Wounds Neurological: Denies: Numbness, Tingling, Focal weakness Psychiatric: Denies: Anxiety, Depression, Homicidal Ideations, Suicidal Ideations Hematologic/ Lymphatic: Reports: Anemia Patient Problems: Active and Suspected Problems Pneumonia (Acute) Atrial fibrillation with RVR (Acute) Objective: The patient's most recent lab work, culture data and imaging studies have all been personally reviewed. Strep and urine Legionella antigens were both negative. Respiratory viral panel is pending. Blood and sputum culture are pending. - Physical Exam General: Alert, Oriented x3, Cooperative, No apparent distress HEENT: Atraumatic, PERRLA, Normocephalic Oral: Moist Mucosa, No Gingival or Mucosal Lesions/ Ulcerations Neck: Supple, No Nodes, Trachea Midline Lungs: No rhonchi, No wheeze, Rales - Basilar Cardiovascular: Normal S1, Normal S2, No murmurs, Irregular Rate, No rub noted, No Gallop Abdomen: Bowel Sounds Present, Soft, Non Tender Extremities: No clubbing, No cyanosis, No edema Skin: No rashes, No breakdown Musculoskeletal: No Tenderness to Palpation of Joints or Extremities Lymphatic: No Cervical, Supraclavicular, or Inguinal Adenopathy Neurological: Neuro grossly intact Psych/Mental Status: Alert and oriented to time, place, person, mood and affect Vital Signs Temp Pulse Resp BP Pulse Ox 98.2 F 78 25 H 139/78 H 98 07/11/17 08:00 07/11/17 08:00 07/11/17 08:00 07/11/17 08:00 07/11/17 08:00 Oxygen Flow Rate (L/min) 2 Oxygen Delivery Method Nasal Cannula Weight: 221 lb 5.506 oz Body Mass Index (BMI) 37.4 Intake and Output for Last 24 Hours 07/09/17 07/10/17 07/11/17 23:59 23:59 23:59 Intake Total 1295 / 1295 Output Total 875 / 875 Balance 420 / 420 Microbiology Past 72 Hours 07/11/17 02:55 Legionella Antigen - Final Urine, Clean Catch 07/11/17 02:55 Streptococcus pneumoniae Antigen (M - Final Urine, Clean Catch Laboratory Tests Past 24 Hrs 07/11/17 07/11/17 07/11/17 00:17 05:00 05:00 WBC 9.9 RBC 3.75 L Hgb 10.7 L Hct 33.4 L MCV 89.1 MCH 28.5 MCHC 32.0 RDW 14.5 RDW Differential 45.9 H Plt Count 172 MPV 10.2 Sodium 139 Potassium 4.5 Chloride 105 Carbon Dioxide 27.0 Anion Gap 7 BUN 17 Creatinine 0.97 Estim Creat Clear Calc 55.10 Est GFR (MDRD) Af Amer 97 Est GFR (MDRD) Non-Af 81 BUN/Creatinine Ratio 17.6 Glucose 108 H Calcium 7.7 L Troponin I < 0.02 < 0.02 Triglycerides 59 Cholesterol 107 LDL Cholesterol 64 VLDL Cholesterol 12 HDL Cholesterol 31 L MRSA (PCR) 07/11/17 08:25 WBC RBC Hgb Hct MCV MCH MCHC RDW RDW Differential Plt Count MPV Sodium Potassium Chloride Carbon Dioxide Anion Gap BUN Creatinine Estim Creat Clear Calc Est GFR (MDRD) Af Amer Est GFR (MDRD) Non-Af BUN/Creatinine Ratio Glucose Calcium Troponin I Triglycerides Cholesterol LDL Cholesterol VLDL Cholesterol HDL Cholesterol MRSA (PCR) Pending POC Glucose 07/11/17 07/11/17 07:08 01:13 POC Glucose 101 158 H Clinical Impression(s) from Imaging Studies Chest X-Ray 07/10/17 20:18 IMPRESSION: Right middle lobe opacity, may represent pneumonia, mass, or hemorrhage. Consider further migration with CT or follow-up to resolution. at 2139 Reported and signed by: Alexus Kevin MD Electronically Signed: Alexus Kevin MD at 20:37 EDT Tel , Service support , Chest CTA 07/10/17 21:08 IMPRESSION: Alveolar opacities in the right middle lobe anteriorly, may represent alveolar fluid, possibly hemorrhage. Associated infection not excluded. Follow-up recommended. No evidence of pleural effusion. Reminder of the lungs are clear. at 2221 Reported and signed by: Alexus Kevin MD Electronically Signed: Alexus Kevin MD at 21:19 EDT Tel , Service support , Assessment/Plan Active and Suspected Problems Pneumonia (Acute) Atrial fibrillation with RVR (Acute) RECOMMENDATIONS: 1. Continue antibiotics as ordered. 2. Will monitor the patient clinically. If the patient's hemoptysis does not resolve or worsens, would need to consider bronchoscopy 3. Continue Cardizem, pending input from cardiology 4. Continue sliding scale insulin coverage 5. Encourage incentive spirometer use and mobilize patient as tolerated. IMPRESSIONS: 1. Hemoptysis in the setting of community-acquired pneumonia Continue treatment with ceftriaxone and azithromycin, pending finalized infectious workup. Hemoptysis is likely secondary to underlying pulmonary infection. We will continue to monitor expectantly on antibiotics. If the patient does not improve clinically or worsens, may need to consider bronchoscopy for formal airway evaluation. 2. Known obstructive sleep apnea Continue nocturnal CPAP therapy. 3. Atrial fibrillation with RVR Continue Cardizem as ordered. No anticoagulation for now given issues with hemoptysis. Cardiology consultation is pending. 4. GERD/hypertension/diabetes/hyperlipidemia Complicates care, management, recovery and prognosis. Likely okay to continue home medications. Continue sliding scale insulin coverage for now. This note was generated with [employer] dictation software. It may contain incorrect words, spelling, and punctuation that were not noted in checking the note before signing. Code Visit Inpatient E&M: 09070 Init Hosp L3
[2017-07-11] MEDS: 0.9% NaCl Peripheral Flush Adult/Peds IV (09:44)
[2017-07-11] MEDS: Ceftriaxone 1 GM/50 ML BAG IV (09:45)
[2017-07-11] MEDS: guaiFENesin 1,200 MG Tablet 1200 MG PO ×2 (09:45→22:52)
[2017-07-11] MEDS: Isosorbide Mononitrate 60 MG Tablet PO (09:45)
[2017-07-11] MEDS: Famotidine 20 MG Tablet PO ×2 (09:45→22:52)
[2017-07-11] MEDS: Magnesium Oxide 400 MG Tablet PO (09:45)
[2017-07-11] MEDS: Carvedilol 25 MG Tablet PO ×2 (09:45→22:52)
[2017-07-11 10:13] LABS: M R Staph aureus DNA By PCR Negative (Negative); Probe Check PASS; Specimen Processing Control PASS
[2017-07-11 11:35] LABS: Bedside Glucose 147 mg/dL (70-110)
--- NOTE | 2017-07-11 12:31 | PN_ITS ---
<Jeronimo Devi - Last Filed: 07/11/17 12:20> Patient Problems: Active and Suspected Problems Pneumonia (Acute) Atrial fibrillation with RVR (Acute) Subjective: hemoptysis continues this AM, began yesterday afternoon. SOB improved. Generalized malaise improved. No fever or chills. Productive cough. Pt reports hx AF. No palp. No dizziness or LH. Oxygen demands decreased overnight. - Physical Exam General: Alert, Oriented x3, Cooperative HEENT: Atraumatic, PERRLA, EOMI, Normocephalic Neck: Supple, No JVD, Negative Carotid Bruits Lungs: Normal air movement, Rales - RML rales. Cardiovascular: No murmurs, Irregular Rate Abdomen: Bowel Sounds Present, Soft, Non Tender Extremities: No edema, Capillary Refill Less than 3 Seconds Skin: No rashes, No breakdown Musculoskeletal: No Tenderness to Palpation of Joints or Extremities Neurological: Cranial nerves II-XII grossly intact Psych/Mental Status: Normal Affect, Appropriate, Alert and oriented to time, place, person, mood and affect Vital Signs Temp Pulse Resp BP Pulse Ox 97.9 F 92 16 132/97 H 100 07/11/17 10:00 07/11/17 11:57 07/11/17 11:04 07/11/17 11:00 07/11/17 11:00 Oxygen Flow Rate (L/min) 1 Oxygen Delivery Method Nasal Cannula Weight: 100.4 kg Body Mass Index (BMI) 37.4 Intake and Output for Last 24 Hours 07/09/17 07/10/17 07/11/17 23:59 23:59 23:59 Intake Total 2395 / 2395 Output Total 1375 / 1375 Balance 1020 / 1020 Microbiology Past 72 Hours 07/11/17 03:35 Respiratory Panel (PCR) - Final Mucosa - Nasopharyngeal 07/11/17 02:55 Legionella Antigen - Final Urine, Clean Catch 07/11/17 02:55 Streptococcus pneumoniae Antigen (M - Final Urine, Clean Catch Laboratory Tests Past 24 Hrs 07/11/17 07/11/17 07/11/17 00:17 05:00 05:00 WBC 9.9 RBC 3.75 L Hgb 10.7 L Hct 33.4 L MCV 89.1 MCH 28.5 MCHC 32.0 RDW 14.5 RDW Differential 45.9 H Plt Count 172 MPV 10.2 Sodium 139 Potassium 4.5 Chloride 105 Carbon Dioxide 27.0 Anion Gap 7 BUN 17 Creatinine 0.97 Estim Creat Clear Calc 55.10 Est GFR (MDRD) Af Amer 97 Est GFR (MDRD) Non-Af 81 BUN/Creatinine Ratio 17.6 Glucose 108 H Calcium 7.7 L Troponin I < 0.02 < 0.02 Triglycerides 59 Cholesterol 107 LDL Cholesterol 64 VLDL Cholesterol 12 HDL Cholesterol 31 L MRSA (PCR) 07/11/17 07/11/17 08:25 10:15 WBC RBC Hgb Hct MCV MCH MCHC RDW RDW Differential Plt Count MPV Sodium Potassium Chloride Carbon Dioxide Anion Gap BUN Creatinine Estim Creat Clear Calc Est GFR (MDRD) Af Amer Est GFR (MDRD) Non-Af BUN/Creatinine Ratio Glucose Calcium Troponin I < 0.02 Triglycerides Cholesterol LDL Cholesterol VLDL Cholesterol HDL Cholesterol MRSA (PCR) Negative POC Glucose 07/11/17 07/11/17 07/11/17 11:22 07:08 01:13 POC Glucose 147 H 101 158 H Medical Necessity - Tobacco Use Smoking Status: Never smoker Tobacco Use: Non-smoker Assessment/Plan Active and Suspected Problems Pneumonia (Acute) Atrial fibrillation with RVR (Acute) 1. CAP with hemoptysis - improving. Hemoptysis continues. Pulm following. Follow cultures. negative antigens. Continue rocephin and azithro, mucinex, duonebs, IS, PEP therapy. WBC improved. CTA chest without PE. RML pna on CTA and CXR. Trop negative x 4. Resp panel neg. 2. PAF with RVR - per pt he has prior hx. Continue Cardizem drip. Rate improved. Continue coreg. He follows Dr. Moscoso - consulted. No anticoagulation with hemoptysis. Echo pending. 3. Chronic diastolic CHF - does not appear volume overloaded. 4. Acute blood loss anemia 2/2 hemoptysis - 3 g drop overnight. Trend. T/S. Aspirin held. 5. CAD - no CP, negative trop. LDL at goal. continue BB, JESSY, imdur, coreg 6. T2DM - A1C in april 2017 6.1. Continue current therapy. DVT ppx: SCDs. No chemoppx with bleeding DC planning: PTOT. Attemp to wean O2. This patient was seen by Jeronimo Devi PA-C under the supervision of Doctor Fabio. <Deejay Mccarthy - Last Filed: 07/11/17 12:49> - Physical Exam Vital Signs Temp Pulse Resp BP Pulse Ox 97.9 F 92 16 132/97 H 100 07/11/17 10:00 07/11/17 11:57 07/11/17 11:04 07/11/17 11:00 07/11/17 11:00 Oxygen Flow Rate (L/min) 1 Oxygen Delivery Method Nasal Cannula Weight: 100.4 kg Body Mass Index (BMI) 37.4 Intake and Output for Last 24 Hours 07/09/17 07/10/17 07/11/17 23:59 23:59 23:59 Intake Total 2395 / 2395 Output Total 1375 / 1375 Balance 1020 / 1020 Microbiology Past 72 Hours 07/11/17 03:35 Respiratory Panel (PCR) - Final Mucosa - Nasopharyngeal 07/11/17 02:55 Legionella Antigen - Final Urine, Clean Catch 07/11/17 02:55 Streptococcus pneumoniae Antigen (M - Final Urine, Clean Catch Laboratory Tests Past 24 Hrs 07/11/17 07/11/17 07/11/17 00:17 05:00 05:00 WBC 9.9 RBC 3.75 L Hgb 10.7 L Hct 33.4 L MCV 89.1 MCH 28.5 MCHC 32.0 RDW 14.5 RDW Differential 45.9 H Plt Count 172 MPV 10.2 Sodium 139 Potassium 4.5 Chloride 105 Carbon Dioxide 27.0 Anion Gap 7 BUN 17 Creatinine 0.97 Estim Creat Clear Calc 55.10 Est GFR (MDRD) Af Amer 97 Est GFR (MDRD) Non-Af 81 BUN/Creatinine Ratio 17.6 Glucose 108 H Calcium 7.7 L Troponin I < 0.02 < 0.02 Triglycerides 59 Cholesterol 107 LDL Cholesterol 64 VLDL Cholesterol 12 HDL Cholesterol 31 L MRSA (PCR) 07/11/17 07/11/17 08:25 10:15 WBC RBC Hgb Hct MCV MCH MCHC RDW RDW Differential Plt Count MPV Sodium Potassium Chloride Carbon Dioxide Anion Gap BUN Creatinine Estim Creat Clear Calc Est GFR (MDRD) Af Amer Est GFR (MDRD) Non-Af BUN/Creatinine Ratio Glucose Calcium Troponin I < 0.02 Triglycerides Cholesterol LDL Cholesterol VLDL Cholesterol HDL Cholesterol MRSA (PCR) Negative POC Glucose 07/11/17 07/11/1707/11/18 11:22 07:08 01:13 POC Glucose 147 H 101 158 H Assessment/Plan This patient was seen in conjunction with Jeronimo Devi PA-C. I have independently interviewed and examined the patient and reviewed pertinent historical, laboratory, and other data. Please refer to Jeronimo Devi PA-C note for details of this patient's presentation, findings, and recommendations. I have reviewed Jeronimo Devi PA-C note and concur with documented findings. In brief, patient is a 77 year-old male with multiple comorbidities who presented with progressive shortness of breath imaging studies demonstrated Alveolar opacities in the right middle lobe anteriorly, may represent alveolar fluid, possibly hemorrhage infection. An assessment of community-acquired pneumonia made admitted to a monitored bed for further management was also found to be in A. 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 SKIN: No rash Assessment: 1. Community-acquired pneumonia 2. Possible pulmonary hemorrhage pulmonary medicine consulted 3. Paroxysmal A. fib presented with RVR 4. CAD status post CABG ?3 5. Hypertension 6. Dyslipidemia 7. Obstructive sleep apnea 8. GERD 9. Diabetes mellitus type 2 10. Obesity with BMI of 37.4 11. Chronic diastolic congestive heart failure 12. DVT prophylaxis patient was not started on systemic anticoagulation due to his hemoptysis Recommendations: 1. I have discussed the results of my overview and impressions with the patient 2. Options for management were reviewed Clinical Impression(s) from Imaging Studies Chest X-Ray 07/10/17 20:18 IMPRESSION: Right middle lobe opacity, may represent pneumonia, mass, or hemorrhage. Consider further migration with CT or follow-up to resolution. at 2139 Reported and signed by: Alexus Kevin MD Electronically Signed: Alexus Kevin MD at 20:37 EDT Tel , Service support , Chest CTA 07/10/17 21:08 IMPRESSION: Alveolar opacities in the right middle lobe anteriorly, may represent alveolar fluid, possibly hemorrhage. Associated infection not excluded. Follow-up recommended. No evidence of pleural effusion. Reminder of the lungs are clear. at 2221 Reported and signed by: Alexus Kevin MD Electronically Signed: Alexus Kevin MD at 21:19 EDT Tel , Service support , Code Visit Inpatient E&M: 36295 Subs Hosp L3
--- NOTE | 2017-07-11 13:54 | CASEMGMT ---
Face to Face with patient for initial transition planning/care coordination assessment. RN DAVID introduced self and role at [facility], pt voices understanding and consents to assessment at this time. Pt is sitting up in bed in no distress at this time. Pt A/O x4 at this time and answers all questions appropriately at this time. Care providers, pharmacy, and demographics verified. See attached link. Pt voices no further concerns/needs at this time. Advised pt to ask for CM if any further questions/concerns/needs arise, voice understanding. CM to follow for any further discharge planning/needs. [place] [facility] [facility]
[2017-07-11 17:05] LABS: Bedside Glucose 110 mg/dL (70-110)
--- NOTE | 2017-07-11 17:32 | PCM.CONS.C ---
Reason for Consult Date of Consultation: 07/11/17 Reason for Consultation: Irregular heartbeat. History of Present Illness: The patient is a 77 year old M with a known history of coronary artery disease status post coronary artery bypass surgery ?3 hypertension, hyperlipidemia, obesity who presented to the emergency room with hemoptysis. He denied any chest pain or paroxysmal nocturnal dyspnea or pedal edema he said that he had otherwise been doing well. In the emergency room he was noted to be in atrial fibrillation with rapid ventricular response rate he was treated with intravenous Cardizem admitted to the telemetry care unit and cardiology was called for further evaluation and management. You do remember that he underwent one and a half years ago a cardiac catheterization which demonstrated a left main coronary artery with 95% distal stenosis, ramus intermedius with no significant stenosis, left circumflex artery with ostial 80% stenosis in the left anterior descending artery which was mildly diseased only. The left internal mammary artery to the left anterior descending artery was patent, the saphenous vein graft to obtuse marginal branch was patent and the saphenous vein graft to the ramus intermedius was patent. The right coronary artery also had mild disease he had preserved ejection fraction and medical therapy was recommended. He has had no neck arm or jaw discomfort suggest angina no dizziness or diaphoresis no near syncope or syncope. [] Past Medical History Allergies/Adverse Reactions: Allergies No Known Allergies Allergy (Verified 07/10/17 20:14) Home Medications: Ambulatory Orders Medication Instructions Recorded Aspirin [Aspir-Low] 81 mg PO DAILY 03/18/16 Atorvastatin Calcium [Lipitor] 40 mg PO DAILY 03/18/16 Cholecalciferol (Vitamin D3) 2,000 unit PO DAILY 03/18/16 [Vitamin D3] Cranberry 1 tab PO DAILY 03/18/16 Insulin Regular, Human [Humulin R] 8 unit SQ BID 03/18/16 Lisinopril [Zestril] 20 mg PO QHS 03/18/16 Omeprazole [Prilosec] 20 mg PO DAILY 03/18/16 Vitamin A 1 tab PO DAILY 03/18/16 Nitroglycerin [Nitrostat] 0.4 mg SUBLINGUAL Q5M PRN #1 bottle 03/19/16 isosorbide mononitrate ER 60 mg 60 mg PO DAILY #90 tab 04/14/17 tablet,extended release 24 hr magnesium oxide 400 mg tablet 400 mg PO DAILY #90 tab 04/14/17 carvedilol 25 mg tablet 25 mg PO BID #180 tab 06/23/17 Past Medical History (Chronic Problems): Chronic Problems Obesity (Chronic) Hyperlipidemia (Chronic) Atherosclerotic heart disease of [place] coronary artery without angina pectoris (Chronic) Ischemic cardiomyopathy (Chronic) Aortocoronary bypass status (Chronic) CABG X 3 GUAMAN to LAD, SVG to Ramus intermedius branch of the Cx as well as lateral Cx & endovein harvesting technique intermediate use of drug (Chronic) Premature ventricular contractions (Chronic) Hypertension (Chronic) Obstructive sleep apnea (Chronic) GERD (gastroesophageal reflux disease) (Chronic) Morbid obesity (Chronic) Dyslipidemia (Chronic) Diastolic congestive heart failure (Chronic) Non-ST elevation [place] (NSTEMI) (Chronic) CAD (coronary artery disease) (Chronic) Diabetes (Chronic) Surgical History: coronary bypass surgery, - - cabg 2008 Psychiatric History: No pertinent psych hx - *Family History Maternal Family History: Family History (Last Updated 06/23/17 @ 11:35 by Riya Anderson) Father Myocardial infarction Mother Diabetes Hypertension TIA (transient ischemic attack) Brother Myocardial infarction, Onset Age: 38 CAD (coronary artery disease) Sister CVA (cerebral vascular accident) Hypertension History Items: - - Mother with a history of diabetes, hypertension, TIA. Paternal Family History: Family History (Last Updated 06/23/17 @ 11:35 by Riya Anderson) Father Myocardial infarction Mother Diabetes Hypertension TIA (transient ischemic attack) Brother Myocardial infarction, Onset Age: 38 CAD (coronary artery disease) Sister CVA (cerebral vascular accident) Hypertension History Items: - - Father with a history of coronary artery disease, [place]. Smoking Status: Never smoker Tobacco Use: Non-smoker Alcohol: None Drugs: None Review of Systems - Review of Systems General: Denies: Fever, Night Sweats, Fatigue Cardiovascular: Denies: Chest Discomfort, Shortness of Breath, Orthopnea, PND, Peripheral Edema, Palpitations, Lightheadedness, Dizziness, Near Syncope, Syncope Respiratory: Reports: Cough, Hemoptysis. Denies: Sputum Production Gastrointestinal: Denies: Hematemesis, Hematochezia, Melena Genitourinary: Denies: Dysuria, Hematuria Skin: Denies: Rash Subjectve: Pleasant gentleman in no apparent distress at this time Objective: Vital Signs Temp Pulse Resp BP Pulse Ox 97.9 F 72 22 H 133/68 H 96 07/11/17 16:00 07/11/17 17:00 07/11/17 17:00 07/11/17 17:00 07/11/17 17:00 Oxygen Flow Rate (L/min) 1 Oxygen Delivery Method Nasal Cannula Weight: 221 lb 5.506 oz Body Mass Index (BMI) 37.4 Intake and Output for Last 24 Hours 07/09/17 07/10/17 07/11/17 23:59 23:59 23:59 Intake Total 2395 / 2395 Output Total 1375 / 1375 Balance 1020 / 1020 General: Awake, Alert, Oriented x 3 HEENT: PERRL, EOMI, Sclera Non Icteric Neck: Supple, Good ROM, No Lymph Node Enlargement Lungs: Clear to auscultation Cardiovascular: Irregular Rhythm, Normal S1, Normal S2, No Murmurs, No Rubs, No Gallops Vascular: No Carotid Bruits, Normal Femoral Pulses, Normal Radial Pulses, Normal Dorsalis Pedal Pulse, Normal Posterior Tibial Pulses Abdomen: Bowel Sounds Present, Soft, Non Tender, No HSM, No Organomegaly Extremities: No Cyanosis, No Clubbing, No edema Neurological: No Focal Motor or Sensory Deficit 07/11/17 00:17: Troponin I < 0.02 07/11/17 05:00: WBC 9.9, RBC 3.75 L, Hgb 10.7 L, Hct 33.4 L, MCV 89.1, MCH 28.5, MCHC 32.0, RDW 14.5, RDW Differential 45.9 H, Plt Count 172, MPV 10.2 07/11/17 05:00: Sodium 139, Potassium 4.5, Chloride 105, Carbon Dioxide 27.0, Anion Gap 7, BUN 17, Creatinine 0.97, Est GFR (MDRD) Af Amer 97, Est GFR (MDRD) Non-Af 81, BUN/Creatinine Ratio 17.6, Glucose 108 H, Calcium 7.7 L, Troponin I < 0.02, Triglycerides 59, Cholesterol 107, LDL Cholesterol 64, VLDL Cholesterol 12, HDL Cholesterol 31 L 07/11/17 10:15: Troponin I < 0.02 Rhythm: EKG: Atrial fibrillation with rapid ventricular response rate of 140 bpm. ECHO: Normal ejection fraction of 55% Stress Test: Cardiac Cath: See HPI Assessment/Plan 1. Atrial fibrillation. Patient presents with atrial fibrillation the duration of which is unclear. He however does have a history of hemoptysis which is currently ongoing. Thus he cannot be anticoagulated. The plan will be to continue rate control. He is currently on intravenous Cardizem and this will be switched over to oral metoprolol. His ejection fraction is noted to be normal via echocardiogram. His telemetry strips has demonstrated some wide complex tachycardia which is likely secondary to aberrancy. No major cardiology changes will be made at this time. 2. Coronary artery disease. He underwent cardiac catheterization within the last year and a half he has not had any abnormal cardiac enzyme leak and his ejection fraction is preserved. The plan will be to continue him on his maximum medical therapy. 3. Hypertension His blood pressure appears to be under good control the current medical therapy I would not recommend that we make any major changes. 4. Hyperlipidemia risk factor modification His most recent lipid profile is excellent and no changes will be made. We will continue the above. Thank you for allowing me to participate in the care of your patient. Please don't hesitate to call if any issues arise
[2017-07-11] MEDS: Lisinopril 20 MG Tablet PO (22:52)
[2017-07-11] MEDS: Atorvastatin Calcium 40 MG Tablet PO (22:52)
[2017-07-11 23:01] LABS: Bedside Glucose 100 mg/dL (70-110)
[2017-07-12] VITALS (10 sets, daily range): BP systolic 96–137; BP diastolic 65–75; PULSE 55–117; RESP 15–20; TEMP 36.5–36.9; O2SAT 93–97
[2017-07-12] MEDS: Ipratropium/Albuterol Sulfate 3 ML AMPUL.NEB INHALATION ×3 (02:12→10:33)
[2017-07-12 05:38] LABS: Absolute Lymphocyte Count 1.29 X10^3/ul (0.83-4.51); Absolute Neutrophil Count 4.8 X10^3/uL (2.0-7.7); Basophil# 0.01 X10^3/uL; Basophil% 0.1 % (0-1); Eosinophil# 0.13 X10^3/uL; Eosinophils% 1.9 % (0-5); Hematocrit 34.8 % (40-54); Hemoglobin 11.1 g/dl (13.0-16.5); Lymphocyte # 1.29 X10^3/ul (4.0); Lymphocyte % 18.4 % (19-41); Mean Corp Hgb Conc 31.9 g/gl (32-36); Mean Corpuscular Hgb 28.1 pg (27.0-32.0); Mean Corpuscular Volume 88.1 fL (80-94); Monocyte# 0.78 X10^3/uL; Monocyte% 11.1 % (0-10); Neutrophil # 4.79 X10^3/uL (2.7-7.7); Neutrophil % 68.4 % (47-70); Platelet Count 175 K/mm3 (150-450); RBC Distribution Width CV 14.5 % (11.6-14.6); Red Blood Count 3.95 M/mm3 (4.6-6.2)
[2017-07-12 05:40] LABS: POSITIVE COUNT NO; POSITIVE DIFFERENTIAL NO; POSITIVE MORPHOLOGY NO
[2017-07-12 06:01] LABS: Anion Gap 8 (5-15); BUN 21 mg/dL (7-18); BUN/Creat Ratio 17.5 RATIO (10-20); Calcium,Total 8.4 mg/dL (8.5-10.1); Chloride 104 mmol/L (98-107); EST Glomerular Filtration Rate 63 mL/min (>60); Est Glom Filt Rate - Afr Amer 76 mL/min (>60); Estimated Creatinine Clearance 44.54 ml/min; Glucose 103 mg/dL (74-106); Potassium 4.5 mmol/L (3.5-5.1); Sodium Level 139 mmol/L (136-145)
[2017-07-12 07:01] LABS: Bedside Glucose 104 mg/dL (70-110)
--- NOTE | 2017-07-12 07:27 | PCM.PROGNOTE ---
Patient Problems: Active and Suspected Problems Pneumonia (Acute) Atrial fibrillation with RVR (Acute) Subjective: The patient was seen and examined at the bedside this morning. Events from the last 24 hours have been reviewed. The patient is currently afebrile and hemodynamically stable. Blood counts remain stable. The patient reports interval improvement in his breathing quality. He has been ambulating around his room without issue. He states that his cough has nearly completely resolved. His hemoptysis has nearly also completely resolved. He is anxious for discharge home. Objective: The patient's most recent lab work, culture data and imaging studies have all been personally reviewed. Respiratory viral panel was negative. Strep and urine Legionella antigens were both negative. Blood cultures have shown no growth to date. Preliminary sputum culture appears to be mixed normal respiratory toni. Surface echocardiogram revealed mild concentric LVH with an ejection fraction of 55%. Pulmonary artery systolic pressure was estimated to be 39 mmHg. - Physical Exam General: Alert, Oriented x3, Cooperative, No apparent distress HEENT: Atraumatic, PERRLA, Normocephalic Oral: Moist Mucosa, No Gingival or Mucosal Lesions/ Ulcerations Neck: Supple, No Nodes, Trachea Midline Lungs: No rhonchi, No wheeze, No rales, Diminished Cardiovascular: Regular rate, Regular Rhythm, Normal S1, Normal S2, No murmurs Abdomen: Bowel Sounds Present, Soft, Non Tender, Obese Extremities: No clubbing, No cyanosis, No edema Skin: No breakdown Musculoskeletal: No Tenderness to Palpation of Joints or Extremities, No Muscle Wasting Lymphatic: No Cervical, Supraclavicular, or Inguinal Adenopathy Neurological: Neuro grossly intact Psych/Mental Status: Alert and oriented to time, place, person, mood and affect Vital Signs Temp Pulse Resp BP Pulse Ox 98.5 F 84 18 96/75 96 07/12/17 04:50 07/12/17 04:50 07/12/17 04:50 07/12/17 04:50 07/12/17 04:50 Oxygen Flow Rate (L/min) 1 Oxygen Delivery Method CPAP Weight: 221 lb 5.506 oz Body Mass Index (BMI) 37.4 Intake and Output for Last 24 Hours 07/10/17 07/11/17 07/12/17 23:59 23:59 23:59 Intake Total 2804.3 / 2804.3 Output Total 1700 / 1700 Balance 1104.3 / 1104.3 Microbiology Past 72 Hours 07/11/17 03:35 Respiratory Panel (PCR) - Final Mucosa - Nasopharyngeal 07/11/17 02:55 Legionella Antigen - Final Urine, Clean Catch 07/11/17 02:55 Streptococcus pneumoniae Antigen (M - Final Urine, Clean Catch Laboratory Tests Past 24 Hrs 07/11/17 07/11/17 07/11/17 08:25 10:15 12:40 WBC RBC Hgb Hct MCV MCH MCHC RDW RDW Differential Plt Count MPV Immature Gran % (Auto) Neut % (Auto) Lymph % (Auto) [place] % (Auto) Eos % (Auto) Baso % (Auto) Absolute Neuts (auto) Absolute Lymphs (auto) Total Counted Sodium Potassium Chloride Carbon Dioxide Anion Gap BUN Creatinine Estim Creat Clear Calc Est GFR (MDRD) Af Amer Est GFR (MDRD) Non-Af BUN/Creatinine Ratio Glucose Calcium Troponin I < 0.02 MRSA (PCR) Negative Blood Type A POSITIVE Antibody Screen NEGATIVE 07/12/17 07/12/17 05:15 05:15 WBC 7.0 RBC 3.95 L Hgb 11.1 L Hct 34.8 L MCV 88.1 MCH 28.1 MCHC 31.9 L RDW 14.5 RDW Differential 47.0 H Plt Count 175 MPV 10.0 Immature Gran % (Auto) 0.100 Neut % (Auto) 68.4 Lymph % (Auto) 18.4 L [place] % (Auto) 11.1 H Eos % (Auto) 1.9 Baso % (Auto) 0.1 Absolute Neuts (auto) 4.8 Absolute Lymphs (auto) 1.29 Total Counted Not Reportable Sodium 139 Potassium 4.5 Chloride 104 Carbon Dioxide 27.0 Anion Gap 8 BUN 21 H Creatinine 1.20 Estim Creat Clear Calc 44.54 Est GFR (MDRD) Af Amer 76 Est GFR (MDRD) Non-Af 63 BUN/Creatinine Ratio 17.5 Glucose 103 Calcium 8.4 L Troponin I MRSA (PCR) Blood Type Antibody Screen POC Glucose 07/12/17 07/11/17 07/11/17 06:56 22:50 16:57 POC Glucose 104 100 110 07/11/17 11:22 POC Glucose 147 H Clinical Impression(s) from Imaging Studies Chest X-Ray 07/10/17 20:18 IMPRESSION: Right middle lobe opacity, may represent pneumonia, mass, or hemorrhage. Consider further migration with CT or follow-up to resolution. at 2139 Reported and signed by: Alexus Kevin MD Electronically Signed: Alexus Kevin MD at 20:37 EDT Tel , Service support , Chest CTA 07/10/17 21:08 IMPRESSION: Alveolar opacities in the right middle lobe anteriorly, may represent alveolar fluid, possibly hemorrhage. Associated infection not excluded. Follow-up recommended. No evidence of pleural effusion. Reminder of the lungs are clear. at 2221 Reported and signed by: Alexus Kevin MD Electronically Signed: Alexus Kevin MD at 21:19 EDT Tel , Service support , Medical Necessity - Tobacco Use Smoking Status: Never smoker Tobacco Use: Non-smoker Assessment/Plan Active and Suspected Problems Pneumonia (Acute) Atrial fibrillation with RVR (Acute) RECOMMENDATIONS: 1. Plan to complete an empiric course of antibiotics ?7 days for community-acquired pneumonia. 2. Given that the patient's hemoptysis has nearly completely resolved, it is likely that it was related to his underlying infection. Therefore, we will plan to complete a treatment course of antibiotics. The patient should follow-up in the pulmonary medicine clinic in 2 weeks with our nurse practitioner. 3. Continue beta-aquilino and JESSY inhibitor per cardiology recommendations 4. Continue sliding scale insulin coverage 5. Encourage incentive spirometer use and mobilize patient as tolerated. IMPRESSIONS: 1. Hemoptysis in the setting of community-acquired pneumonia The patient's presenting hemoptysis was likely the consequence of his underlying infection. It is nearly completely resolved at this time following initiation of antibiotics. Recommend completing a 7 day treatment course for community-acquired pneumonia. I have advised patient that he should follow-up in the pulmonary medicine clinic in 2 weeks with our nurse practitioner to reassess his ongoing stability. He has been advised to call our office with any worsening. 2. Known obstructive sleep apnea Continue nocturnal CPAP therapy. 3. Atrial fibrillation with RVR Cardiology is following. Will defer medical management per their recommendations. 4. GERD/hypertension/diabetes/hyperlipidemia Complicates care, management, recovery and prognosis. Likely okay to continue home medications. Continue sliding scale insulin coverage for now. This note was generated with [employer] dictation software. It may contain incorrect words, spelling, and punctuation that were not noted in checking the note before signing. Code Visit Inpatient E&M: 19677 Subs Hosp L2
--- NOTE | 2017-07-12 07:30 | PN_ITS ---
Patient Problems: Active and Suspected Problems Pneumonia (Acute) Atrial fibrillation with RVR (Acute) Subjective: The patient was seen and examined at the bedside this morning. Events from the last 24 hours have been reviewed. The patient is currently afebrile and hemodynamically stable. Blood counts remain stable. The patient reports interval improvement in his breathing quality. He has been ambulating around his room without issue. He states that his cough has nearly completely resolved. His hemoptysis has nearly also completely resolved. He is anxious for discharge home. Objective: The patient's most recent lab work, culture data and imaging studies have all been personally reviewed. Respiratory viral panel was negative. Strep and urine Legionella antigens were both negative. Blood cultures have shown no growth to date. Preliminary sputum culture appears to be mixed normal respiratory toni. Surface echocardiogram revealed mild concentric LVH with an ejection fraction of 55%. Pulmonary artery systolic pressure was estimated to be 39 mmHg. - Physical Exam General: Alert, Oriented x3, Cooperative, No apparent distress HEENT: Atraumatic, PERRLA, Normocephalic Oral: Moist Mucosa, No Gingival or Mucosal Lesions/ Ulcerations Neck: Supple, No Nodes, Trachea Midline Lungs: No rhonchi, No wheeze, No rales, Diminished Cardiovascular: Regular rate, Regular Rhythm, Normal S1, Normal S2, No murmurs Abdomen: Bowel Sounds Present, Soft, Non Tender, Obese Extremities: No clubbing, No cyanosis, No edema Skin: No breakdown Musculoskeletal: No Tenderness to Palpation of Joints or Extremities, No Muscle Wasting Lymphatic: No Cervical, Supraclavicular, or Inguinal Adenopathy Neurological: Neuro grossly intact Psych/Mental Status: Alert and oriented to time, place, person, mood and affect Vital Signs Temp Pulse Resp BP Pulse Ox 98.5 F 84 18 96/75 96 07/12/17 04:50 07/12/17 04:50 07/12/17 04:50 07/12/17 04:50 07/12/17 04:50 Oxygen Flow Rate (L/min) 1 Oxygen Delivery Method CPAP Weight: 221 lb 5.506 oz Body Mass Index (BMI) 37.4 Intake and Output for Last 24 Hours 07/10/17 07/11/17 07/12/17 23:59 23:59 23:59 Intake Total 2804.3 / 2804.3 Output Total 1700 / 1700 Balance 1104.3 / 1104.3 Microbiology Past 72 Hours 07/11/17 03:35 Respiratory Panel (PCR) - Final Mucosa - Nasopharyngeal 07/11/17 02:55 Legionella Antigen - Final Urine, Clean Catch 07/11/17 02:55 Streptococcus pneumoniae Antigen (M - Final Urine, Clean Catch Laboratory Tests Past 24 Hrs 07/11/17 07/11/17 07/11/17 08:25 10:15 12:40 WBC RBC Hgb Hct MCV MCH MCHC RDW RDW Differential Plt Count MPV Immature Gran % (Auto) Neut % (Auto) Lymph % (Auto) [place] % (Auto) Eos % (Auto) Baso % (Auto) Absolute Neuts (auto) Absolute Lymphs (auto) Total Counted Sodium Potassium Chloride Carbon Dioxide Anion Gap BUN Creatinine Estim Creat Clear Calc Est GFR (MDRD) Af Amer Est GFR (MDRD) Non-Af BUN/Creatinine Ratio Glucose Calcium Troponin I < 0.02 MRSA (PCR) Negative Blood Type A POSITIVE Antibody Screen NEGATIVE 07/12/17 07/12/17 05:15 05:15 WBC 7.0 RBC 3.95 L Hgb 11.1 L Hct 34.8 L MCV 88.1 MCH 28.1 MCHC 31.9 L RDW 14.5 RDW Differential 47.0 H Plt Count 175 MPV 10.0 Immature Gran % (Auto) 0.100 Neut % (Auto) 68.4 Lymph % (Auto) 18.4 L [place] % (Auto) 11.1 H Eos % (Auto) 1.9 Baso % (Auto) 0.1 Absolute Neuts (auto) 4.8 Absolute Lymphs (auto) 1.29 Total Counted Not Reportable Sodium 139 Potassium 4.5 Chloride 104 Carbon Dioxide 27.0 Anion Gap 8 BUN 21 H Creatinine 1.20 Estim Creat Clear Calc 44.54 Est GFR (MDRD) Af Amer 76 Est GFR (MDRD) Non-Af 63 BUN/Creatinine Ratio 17.5 Glucose 103 Calcium 8.4 L Troponin I MRSA (PCR) Blood Type Antibody Screen POC Glucose 07/12/17 07/11/17 07/11/17 06:56 22:50 16:57 POC Glucose 104 100 110 07/11/17 11:22 POC Glucose 147 H Clinical Impression(s) from Imaging Studies Chest X-Ray 07/10/17 20:18 IMPRESSION: Right middle lobe opacity, may represent pneumonia, mass, or hemorrhage. Consider further migration with CT or follow-up to resolution. at 2139 Reported and signed by: Alexus Kevin MD Electronically Signed: Alexus Kevin MD at 20:37 EDT Tel , Service support , Chest CTA 07/10/17 21:08 IMPRESSION: Alveolar opacities in the right middle lobe anteriorly, may represent alveolar fluid, possibly hemorrhage. Associated infection not excluded. Follow-up recommended. No evidence of pleural effusion. Reminder of the lungs are clear. at 2221 Reported and signed by: Alexus Kevin MD Electronically Signed: Alexus Kevin MD at 21:19 EDT Tel , Service support , Medical Necessity - Tobacco Use Smoking Status: Never smoker Tobacco Use: Non-smoker Assessment/Plan Active and Suspected Problems Pneumonia (Acute) Atrial fibrillation with RVR (Acute) RECOMMENDATIONS: 1. Plan to complete an empiric course of antibiotics ?7 days for community- acquired pneumonia. 2. Given that the patient's hemoptysis has nearly completely resolved, it is likely that it was related to his underlying infection. Therefore, we will plan to complete a treatment course of antibiotics. The patient should follow-up in the pulmonary medicine clinic in 2 weeks with our nurse practitioner. 3. Continue beta-aquilino and JESSY inhibitor per cardiology recommendations 4. Continue sliding scale insulin coverage 5. Encourage incentive spirometer use and mobilize patient as tolerated. IMPRESSIONS: 1. Hemoptysis in the setting of community-acquired pneumonia The patient's presenting hemoptysis was likely the consequence of his underlying infection. It is nearly completely resolved at this time following initiation of antibiotics. Recommend completing a 7 day treatment course for community-acquired pneumonia. I have advised patient that he should follow-up in the pulmonary medicine clinic in 2 weeks with our nurse practitioner to reassess his ongoing stability. He has been advised to call our office with any worsening. 2. Known obstructive sleep apnea Continue nocturnal CPAP therapy. 3. Atrial fibrillation with RVR Cardiology is following. Will defer medical management per their recommendations. 4. GERD/hypertension/diabetes/hyperlipidemia Complicates care, management, recovery and prognosis. Likely okay to continue home medications. Continue sliding scale insulin coverage for now. This note was generated with [employer] dictation software. It may contain incorrect words, spelling, and punctuation that were not noted in checking the note before signing. Code Visit Inpatient E&M: 58808 Subs Hosp L2
--- NOTE | 2017-07-12 08:47 | PN.CARD_ITS ---
Subjectve: Patient seen and evaluated. Appears to be doing well. Objective: Vital Signs Temp Pulse Resp BP Pulse Ox 98.5 F 107 H 18 96/75 96 07/12/17 04:50 07/12/17 07:14 07/12/17 04:50 07/12/17 04:50 07/12/17 04:50 Oxygen Flow Rate (L/min) 1 Oxygen Delivery Method Room Air Weight: 221 lb 5.506 oz Body Mass Index (BMI) 37.4 Intake and Output for Last 24 Hours 07/10/17 07/11/17 07/12/17 23:59 23:59 23:59 Intake Total 2804.3 / 2804.3 Output Total 1700 / 1700 Balance 1104.3 / 1104.3 General: Awake, Alert, Oriented x 3 HEENT: PERRL, EOMI, Sclera Non Icteric Neck: Supple, Good ROM, No Lymph Node Enlargement Lungs: Clear to auscultation Cardiovascular: Regular Rhythm, Normal S1, Normal S2, No Murmurs, No Rubs, No Gallops Vascular: No Carotid Bruits, Normal Femoral Pulses, Normal Radial Pulses, Normal Dorsalis Pedal Pulse, Normal Posterior Tibial Pulses Abdomen: Bowel Sounds Present, Soft, Non Tender, No HSM, No Organomegaly Extremities: No Cyanosis, No Clubbing, No edema Neurological: No Focal Motor or Sensory Deficit 07/11/17 10:15: Troponin I < 0.02 07/12/17 05:15: WBC 7.0, RBC 3.95 L, Hgb 11.1 L, Hct 34.8 L, MCV 88.1, MCH 28.1 , MCHC 31.9 L, RDW 14.5, RDW Differential 47.0 H, Plt Count 175, MPV 10.0, Immature Gran % (Auto) 0.100, Neut % (Auto) 68.4, Lymph % (Auto) 18.4 L, [place] % (Auto) 11.1 H, Eos % (Auto) 1.9, Baso % (Auto) 0.1, Absolute Neuts (auto) 4.8, Total Counted Not Reportable 07/12/17 05:15: Sodium 139, Potassium 4.5, Chloride 104, Carbon Dioxide 27.0, Anion Gap 8, BUN 21 H, Creatinine 1.20, Est GFR (MDRD) Af Amer 76, Est GFR (MDRD ) Non-Af 63, BUN/Creatinine Ratio 17.5, Glucose 103, Calcium 8.4 L Rhythm: EKG: ECHO: Stress Test: Cardiac Cath: PCI: CT Surgery: Holter monitor: EPS: PPM: CXR: Chest CT Scan: Medical Necessity - Tobacco Use Smoking Status: Never smoker Tobacco Use: Non-smoker Assessment/Plan 1. Atrial fibrillation. Patient presents with atrial fibrillation the duration of which is unclear. He however does have a history of hemoptysis which is currently ongoing. Thus he cannot be anticoagulated. The plan will be to continue rate control. He is currently on intravenous Cardizem and this will be switched over to oral carvedilol. His ejection fraction is noted to be normal via echocardiogram. His telemetry strips has demonstrated some wide complex tachycardia which is likely secondary to aberrancy. No major cardiology changes will be made at this time. 2. Coronary artery disease. He underwent cardiac catheterization within the last year and a half he has not had any abnormal cardiac enzyme leak and his ejection fraction is preserved. The plan will be to continue him on his maximum medical therapy. 3. Hypertension His blood pressure appears to be under good control the current medical therapy I would not recommend that we make any major changes. 4. Hyperlipidemia risk factor modification His most recent lipid profile is excellent and no changes will be made. We will continue the above. He can probably be managed as an outpatient. Thank you for allowing me to participate in the care of your patient. Please don't hesitate to call if any issues arise
[2017-07-12] MEDS: Carvedilol 25 MG Tablet PO (09:19)
[2017-07-12] MEDS: Famotidine 20 MG Tablet PO (09:20)
[2017-07-12] MEDS: Magnesium Oxide 400 MG Tablet PO (09:20)
[2017-07-12] MEDS: guaiFENesin 1,200 MG Tablet 1200 MG PO (09:20)
[2017-07-12] MEDS: Isosorbide Mononitrate 60 MG Tablet PO (09:20)
[2017-07-12 11:21] LABS: Bedside Glucose 149 mg/dL (70-110)
[2017-07-12] MEDS: Ceftriaxone 1 GM/50 ML BAG IV (11:32)
--- NOTE | 2017-07-12 12:52 | DCINST_ITS ---
- Discharge Diagnoses Current Active Problems: Current Active and Chronic Problems Obesity (Chronic) Pneumonia (Acute) Atrial fibrillation with RVR (Acute) You will use the following diet at home:: Calorie/Carbohydrate Controlled ( specify 1200, 1400, etc) - 1800 cecille / day, Cardiac Your food should be the consistency of: Regular Your liquids should be the consistency of: Regular/Thin Discharge Activity: Return to Normal Activity Allergies/Adverse Reactions: Allergies No Known Allergies Allergy (Verified 07/10/17 20:14) Medications to take at Discharge Atorvastatin Calcium [Lipitor] 40 mg PO DAILY 03/18/16 Cholecalciferol (Vitamin D3) [Vitamin D3] 2,000 unit PO DAILY 03/18/16 Cranberry 1 tab PO DAILY 03/18/16 Insulin Regular, Human [Humulin R] 8 unit SQ BID 03/18/16 Lisinopril [Zestril] 20 mg PO QHS 03/18/16 Omeprazole [Prilosec] 20 mg PO DAILY 03/18/16 Vitamin A 1 tab PO DAILY 03/18/16 Nitroglycerin [Nitrostat] 0.4 mg SUBLINGUAL Q5M PRN #1 bottle 03/19/16 isosorbide mononitrate ER 60 mg tablet,extended release 24 hr 60 mg PO DAILY # 90 tab 04/14/17 magnesium oxide 400 mg tablet 400 mg PO DAILY #90 tab 04/14/17 carvedilol 25 mg tablet 25 mg PO BID #180 tab 06/23/17 Aspirin [Aspir-Low] 81 mg PO DAILY #0 07/12/17 Azithromycin 250 mg PO DAILY #3 tab 07/12/17 Cefdinir [Omnicef [equiv]] 300 mg PO Q12H #6 cap 07/12/17 Guaifenesin [Mucinex] 1,200 mg PO BID tablet 07/12/17 The following prescriptions were given: Azithromycin 250 mg PO DAILY #3 tab Cefdinir [Omnicef [equiv]] 300 mg PO Q12H #6 cap Primary Care Physician: Obed Marinelli MD [Primary Care Provider] - Please follow up with your Primary Care Physician in: 1-2 weeks Please Follow Up With: Wale Kim DO When: 2 weeks Proposed Discharge Date: 07/12/17
--- NOTE | 2017-07-12 12:52 | PCM.DC.SUM ---
<Jeronimo Devi - Last Filed: 07/12/17 12:52> Discharge Date and Diagnosis Date of Admission: 07/10/17 Date of Discharge: 07/12/17 - Primary Discharge Diagnosis Active and Suspected Problems Acute CA Pneumonia (Acute) Atrial fibrillation with RVR (Acute) Chronic diastolic CHF CAD T2DM Acute blood loss anemia - Secondary Discharge Diagnosis Chronic Problems Obesity (Chronic) Hyperlipidemia (Chronic) Atherosclerotic heart disease of [place] coronary artery without angina pectoris (Chronic) Ischemic cardiomyopathy (Chronic) Aortocoronary bypass status (Chronic) CABG X 3 GUAMAN to LAD, SVG to Ramus intermedius branch of the Cx as well as lateral Cx & endovein harvesting technique 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 Consider further migration with CT or follow-up to resolution. CT/CTA Chest W/WO Contrast IMPRESSION: Alveolar opacities in the right middle lobe anteriorly, may represent alveolar fluid, possibly hemorrhage. Associated infection not excluded. Follow-up recommended. No evidence of pleural effusion. Reminder of the lungs are clear. Echo: Interpretation Summary Normal LV size. Mild concentric left ventricular hypertrophy. Left ventricular systolic function is normal. The estimated ejection fraction is 55 %. Pulmonary artery systolic pressure is 39 mmHg. Contrast injection was performed. Compared to prior study, there is no significant change. Operations: None Procedures: 2-D Echocardiogram Summary of Care Provided: Physical exam on day of discharge: General: Resting comfortably NAD Psych: A/Ox3 normal affect HEENT: [place] AT NC Neck: Supple NT CV: Irregular but normal rate, no murmurs appreciated at this time. Resp: Right middle lobe auscultated posteriorly reveals significant crackles. Abd: [id number] Soft NT no guarding or rigidity Ext: DP2+= no edema Skin: W/D normal turgor Lymph/Heme: No active bleeding or adenopathy Neuro: CN2-12 intact Hospital course: The patient is a 77 year old M with a hx of PAF, CAD, diastolic CHF, HTN, T2DM, who presented to the ER complaining of hemoptysis for a day, cough, chills, and dyspnea. He was found to have a RML pna and was in RVR. He was admitted to the PCU and placed on rocephin and azithromycin and started on a cardizem drip. He had some vtach show on the monitor so cardiology was consulted who felt that these were only aberrations and did not need further workup. Echo was unremarkable. Cardizem drip was discontinued he remained stable on his home dose of Coreg. He did have an initial decline in hemoglobin but stabilized after the first night as did his hemoptysis. Pulmonary medicine was consulted for the hemoptysis who felt it was 2/2 pna, but indicate he will need watched with a pulmonary follow up. Aspirin was held and should be continued to be held for a week. He was transitioned to omnicef and azithromycin to complete 5 days of therapy. He was discharged home in stable condition. Please follow up with PCP in 1-2 weeks, pulm in 2 weeks, cardiology as directed. This patient was seen by Jeronimo Devi PA-C under the supervision of Doctor Mccarthy. [] Discharge Diet: Low fat/ Low Cholesterol, 1800 Calorie Control Diet, 2000 mg Sodium Diet Discharge Activity: Return to Normal Activity Home Medications: Medications to take at Discharge Atorvastatin Calcium [Lipitor] 40 mg PO DAILY 03/18/16 Cholecalciferol (Vitamin D3) [Vitamin D3] 2,000 unit PO DAILY 03/18/16 Cranberry 1 tab PO DAILY 03/18/16 Insulin Regular, Human [Humulin R] 8 unit SQ BID 03/18/16 Lisinopril [Zestril] 20 mg PO QHS 03/18/16 Omeprazole [Prilosec] 20 mg PO DAILY 03/18/16 Vitamin A 1 tab PO DAILY 03/18/16 Nitroglycerin [Nitrostat] 0.4 mg SUBLINGUAL Q5M PRN #1 bottle 03/19/16 isosorbide mononitrate ER 60 mg tablet,extended release 24 hr 60 mg PO DAILY #90 tab 04/14/17 magnesium oxide 400 mg tablet 400 mg PO DAILY #90 tab 01/11/18 carvedilol 25 mg tablet 25 mg PO BID #180 tab 06/23/17 Aspirin [Aspir-Low] 81 mg PO DAILY #0 07/12/17 Azithromycin 250 mg PO DAILY #3 tab 07/12/17 Cefdinir [Omnicef [equiv]] 300 mg PO Q12H #6 cap 07/12/17 Guaifenesin [Mucinex] 1,200 mg PO BID tablet 07/12/17 Following Prescrptions Were Given to Patient: Azithromycin 250 mg PO DAILY #3 tab Cefdinir [Omnicef [equiv]] 300 mg PO Q12H #6 cap Primary Care Physician: Obed Marinelli MD [Primary Care Provider] - Please follow up with your Primary Care Physician in: 1-2 weeks Please Follow Up With: Wale Kim DO When: 2 weeks Disposition: Home Minutes spent on discharge:: 40 Patient Condition:: Stable Medical Necessity - Tobacco Use Smoking Status: Never smoker Tobacco Use: Non-smoker Meaningful Use Info Meaningful Use Diagnoses (Choose all that apply): None applicable <Deejay Mccarthy - Last Filed: 07/12/17 14:19> Discharge Date and Diagnosis - Secondary Discharge Diagnosis Chronic Problems Obesity (Chronic) Hyperlipidemia (Chronic) Atherosclerotic heart disease of [place] coronary artery without angina pectoris (Chronic) Ischemic cardiomyopathy (Chronic) Aortocoronary bypass status (Chronic) CABG X 3 GUAMAN to LAD, SVG to Ramus intermedius branch of the Cx as well as lateral Cx & 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 I have independently interviewed and examined the patient and reviewed pertinent historical, laboratory, and other data. Please refer to Jeronimo Devi PA-C note for details of this patient's presentation, findings, and recommendations. I have reviewed Jeronimo Devi PA-C note and concur with documented findings. In brief, patient is a 77 year-old male with multiple comorbidities who presented with progressive shortness of breath imaging studies demonstrated Alveolar opacities in the right middle lobe anteriorly, may represent alveolar fluid, possibly hemorrhage infection. An assessment of community-acquired pneumonia made admitted to a monitored bed for further management was also found to be in A. fib with RVR on admission Assessment: 1. Community-acquired pneumonia 2. Possible pulmonary hemorrhage pulmonary medicine consulted 3. Paroxysmal A. fib presented with RVR 4. CAD status post CABG ?3 5. Hypertension 6. Dyslipidemia 7. Obstructive sleep apnea 8. GERD 9. Diabetes mellitus type 2 10. Obesity with BMI of 37.4 11. Chronic diastolic congestive heart failure 12. DVT prophylaxis patient was not started on systemic anticoagulation due to his hemoptysis Hospital course: As elicited above by Jeronimo Devi PA-C Time spent on discharge 40 minutes Code Visit Inpatient E&M: [id number] Disch Hosp
--- NOTE | 2017-07-12 12:54 | CHAPLAIN ---
Type of Pastoral Visit _x__ Initial Visit ___ Follow-up Visit ___ On-call Visit ___ General Patient Visit ___ Spiritual Assessment ___ Family Conference ___ Bereavement ___ Rapid Response ___ Code Blue ___ Other (describe below) Pastoral Care Referral From _x__ Patient ___ Family ___ Nurse ___ Physician ___ Legal Paraprofessional ___ Executive Director ___ Other (describe below) Sacrament/Intervention _x__ Active listening ___ Anointing ___ Amish ___ Bereavement ___ Communion ___ Kirti exploration ___ ___ Life review _x__ Prayer ___ Reconciliation ___ Sacrament of Sick _x__ Supportive presence ___ Wedding ___ Other (describe below) Pastoral Comments
--- NOTE | 2017-07-12 13:04 | DS.PCM_ITS ---
<Jeronimo Devi - Last Filed: 07/12/17 12:52> Discharge Date and Diagnosis Date of Admission: 07/10/17 Date of Discharge: 07/12/17 - Primary Discharge Diagnosis Active and Suspected Problems Acute CA Pneumonia (Acute) Atrial fibrillation with RVR (Acute) Chronic diastolic CHF CAD T2DM Acute blood loss anemia - Secondary Discharge Diagnosis Chronic Problems Obesity (Chronic) Hyperlipidemia (Chronic) Atherosclerotic heart disease of [place] coronary artery without angina pectoris (Chronic) Ischemic cardiomyopathy (Chronic) Aortocoronary bypass status (Chronic) CABG X 3 GUAMAN to LAD, SVG to Ramus intermedius branch of the Cx as well as lateral Cx & endovein harvesting technique 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 Consider further migration with CT or follow-up to resolution. CT/CTA Chest W/WO Contrast IMPRESSION: Alveolar opacities in the right middle lobe anteriorly, may represent alveolar fluid, possibly hemorrhage. Associated infection not excluded. Follow-up recommended. No evidence of pleural effusion. Reminder of the lungs are clear. Echo: Interpretation Summary Normal LV size. Mild concentric left ventricular hypertrophy. Left ventricular systolic function is normal. The estimated ejection fraction is 55 %. Pulmonary artery systolic pressure is 39 mmHg. Contrast injection was performed. Compared to prior study, there is no significant change. Operations: None Procedures: 2-D Echocardiogram Summary of Care Provided: Physical exam on day of discharge: General: Resting comfortably NAD Psych: A/Ox3 normal affect HEENT: [place] AT NC Neck: Supple NT CV: Irregular but normal rate, no murmurs appreciated at this time. Resp: Right middle lobe auscultated posteriorly reveals significant crackles. Abd: NABSX4 Soft NT no guarding or rigidity Ext: DP2+= no edema Skin: W/D normal turgor Lymph/Heme: No active bleeding or adenopathy Neuro: CN2-12 intact Hospital course: The patient is a 77 year old M with a hx of PAF, CAD, diastolic CHF, HTN, T2DM, who presented to the ER complaining of hemoptysis for a day, cough, chills, and dyspnea. He was found to have a RML pna and was in RVR. He was admitted to the PCU and placed on rocephin and azithromycin and started on a cardizem drip. He had some vtach show on the monitor so cardiology was consulted who felt that these were only aberrations and did not need further workup. Echo was unremarkable. Cardizem drip was discontinued he remained stable on his home dose of Coreg. He did have an initial decline in hemoglobin but stabilized after the first night as did his hemoptysis. Pulmonary medicine was consulted for the hemoptysis who felt it was 2/2 pna, but indicate he will need watched with a pulmonary follow up. Aspirin was held and should be continued to be held for a week. He was transitioned to omnicef and azithromycin to complete 5 days of therapy. He was discharged home in stable condition. Please follow up with PCP in 1-2 weeks, pulm in 2 weeks, cardiology as directed. This patient was seen by Jeronimo Devi PA-C under the supervision of Doctor Mccarthy. [] Discharge Diet: Low fat/ Low Cholesterol, 1800 Calorie Control Diet, 2000 mg Sodium Diet Discharge Activity: Return to Normal Activity Home Medications: Medications to take at Discharge Atorvastatin Calcium [Lipitor] 40 mg PO DAILY 03/18/16 Cholecalciferol (Vitamin D3) [Vitamin D3] 2,000 unit PO DAILY 03/18/16 Cranberry 1 tab PO DAILY 03/18/16 Insulin Regular, Human [Humulin R] 8 unit SQ BID 03/18/16 Lisinopril [Zestril] 20 mg PO QHS 03/18/16 Omeprazole [Prilosec] 20 mg PO DAILY 03/18/16 Vitamin A 1 tab PO DAILY 03/18/16 Nitroglycerin [Nitrostat] 0.4 mg SUBLINGUAL Q5M PRN #1 bottle 03/19/16 isosorbide mononitrate ER 60 mg tablet,extended release 24 hr 60 mg PO DAILY # 90 tab 04/14/17 magnesium oxide 400 mg tablet 400 mg PO DAILY #90 tab 01/11/18 carvedilol 25 mg tablet 25 mg PO BID #180 tab 06/23/17 Aspirin [Aspir-Low] 81 mg PO DAILY #0 07/12/17 Azithromycin 250 mg PO DAILY #3 tab 07/12/17 Cefdinir [Omnicef [equiv]] 300 mg PO Q12H #6 cap 07/12/17 Guaifenesin [Mucinex] 1,200 mg PO BID tablet 07/12/17 Following Prescrptions Were Given to Patient: Azithromycin 250 mg PO DAILY #3 tab Cefdinir [Omnicef [equiv]] 300 mg PO Q12H #6 cap Primary Care Physician: Obed Marinelli MD [Primary Care Provider] - Please follow up with your Primary Care Physician in: 1-2 weeks Please Follow Up With: Wale Kim DO When: 2 weeks Disposition: Home Minutes spent on discharge:: 40 Patient Condition:: Stable Medical Necessity - Tobacco Use Smoking Status: Never smoker Tobacco Use: Non-smoker Meaningful Use Info Meaningful Use Diagnoses (Choose all that apply): None applicable <Deejay Mccarthy - Last Filed: 07/12/17 14:19> Discharge Date and Diagnosis - Secondary Discharge Diagnosis Chronic Problems Obesity (Chronic) Hyperlipidemia (Chronic) Atherosclerotic heart disease of [place] coronary artery without angina pectoris (Chronic) Ischemic cardiomyopathy (Chronic) Aortocoronary bypass status (Chronic) CABG X 3 GUAMAN to LAD, SVG to Ramus intermedius branch of the Cx as well as lateral Cx & endovein harvesting technique senior living use of drug (Chronic) Premature ventricular contractions (Chronic) Hypertension (Chronic) Obstructive sleep apnea (Chronic) GERD (gastroesophageal reflux disease) (Chronic) Morbid obesity (Chronic) Dyslipidemia (Chronic) Diastolic congestive heart failure (Chronic) Non-ST elevation MD (NSTEMI) (Chronic) CAD (coronary artery disease) (Chronic) Diabetes (Chronic) Hospital Course and Treatment Summary of Care Provided: This patient was seen in conjunction with Jeronimo Devi PA-C. I have independently interviewed and examined the patient and reviewed pertinent historical, laboratory, and other data. Please refer to Jeronimo Devi PA-C note for details of this patient's presentation, findings, and recommendations. I have reviewed Jeronimo Devi PA-C note and concur with documented findings. In brief, patient is a 77 year-old male with multiple comorbidities who presented with progressive shortness of breath imaging studies demonstrated Alveolar opacities in the right middle lobe anteriorly, may represent alveolar fluid, possibly hemorrhage infection. An assessment of community-acquired pneumonia made admitted to a monitored bed for further management was also found to be in A. fib with RVR on admission Assessment: 1. Community-acquired pneumonia 2. Possible pulmonary hemorrhage pulmonary medicine consulted 3. Paroxysmal A. fib presented with RVR 4. CAD status post CABG ?3 5. Hypertension 6. Dyslipidemia 7. Obstructive sleep apnea 8. GERD 9. Diabetes mellitus type 2 10. Obesity with BMI of 37.4 11. Chronic diastolic congestive heart failure 12. DVT prophylaxis patient was not started on systemic anticoagulation due to his hemoptysis Hospital course: As elicited above by Jeronimo Devi PA-C Time spent on discharge 40 minutes Code Visit Inpatient E&M: [id number] Disch Hosp
--- NOTE | 2017-07-14 16:01 | CASEMGMT ---
MATTHEW HERNANDEZ DISCHARGE F/U PHONE CALL LACE: 10 STRATA: 3 CALL DATE: 07/14/17 DISCHARGE DATE: 07/12/17 TIME OF CALL: 1600 DURATION: 3 MINUTES ADM DX: AFIB RVR, CAP PT STATES THAT HE HAS BEEN DOING 'GOOD' SINCE DISCHARGE. PT STATES THAT HE HAS BEEN TAKING THE ANTIBIOTICS. PT STATES NO QUESTIONS REGARDING DISCHARGE INSTRUCTIONS OR MEDICATIONS AT THIS TIME. PT STATES THAT HE HAS F/U APPOINTMENTS SCHEDULED AND PLANS TO KEEP THOSE. PT STATES 'HE CAN'T THINK OF ANY' SUGGESTIONS FOR [facility] AT THIS TIME. PT HAS THIS RN DAVID'S PHONE NUMBER FOR ANY FURTHER QUESTIONS/CONCERNS. PT VOICES NO FURTHER QUESTIONS/CONCERNS AT THIS TIME. SSTATEN MATTHEW HERNANDEZ
== END 2017-07-12 14:15 | disposition home or self-care (01) | DRG 194 ==
LOC: ED 20:36 → PCU 22:56
PROVIDERS: Internal Medicine Critical Care Medicine; Physician Assistant; Admitting Provider Family Medicine; Emergency Provider Emergency Medicine; Family Provider Family Medicine; PCP Family Medicine; Visit Provider Internal Medicine
DX: J18.1 Lobar pneumonia, unspecified organism (principal); I50.32 Chronic diastolic (congestive) heart failure; D62 Acute posthemorrhagic anemia; I48.0 Paroxysmal atrial fibrillation; I25.10 Atherosclerotic heart disease of native coronary artery without angina pectoris; Z95.1 Presence of aortocoronary bypass graft; E11.9 Type 2 diabetes mellitus without complications; E78.5 Hyperlipidemia, unspecified; G47.33 Obstructive sleep apnea (adult) (pediatric); I11.0 Hypertensive heart disease with heart failure; K21.9 Gastro-esophageal reflux disease without esophagitis; E66.01 Morbid (severe) obesity due to excess calories; I25.5 Ischemic cardiomyopathy; I49.3 Ventricular premature depolarization; Z68.37 Body mass index [BMI] 37.0-37.9, adult; Z71.3 Dietary counseling and surveillance; I25.2 Old myocardial infarction; Z79.899 Other long term (current) drug therapy; Z79.4 Long term (current) use of insulin
CPT/HCPCS: 36415; 71046; 71275; 80048; 80061; 82962; 83735; 84443; 84484; 85025; 85027; 85379; 85610; 86850; 86900; 87040; 87070; 87205; 87449; 87633; 87641; 93005; 93306; 94640; 94667; 94668; 97162; 97166; 99284; J7030; J7050; Q9957; Q9967; A4216; C8929

== ENCOUNTER → 2017-08-23 07:56 | Outpatient (CLI) | payer MEDICARE, SELFPAY ==
--- NOTE | 2017-08-23 13:52 | PFT ---
INTRODUCTION: The patient is a 77-year-old male currently under the care of myself that presents for pulmonary function testing secondary to a diagnosis of hemoptysis. Respiratory therapy reports good patient effort. Bronchodilators were used during testing. INTERPRETATION: Forced expiration spirometry demonstrates no evidence of a large airways obstructive ventilatory defect. There was no significant response to aerosolized bronchodilators, based upon strict ATS criteria. Spirograms are of good quality and plateau gradually. Body plethysmography was performed and reveals lung volumes to be within normal limits. Diffusing capacity by single breath CO is within normal limits at 85% of predicted. IMPRESSION: These pulmonary function studies are essentially within normal limits. There are no previous pulmonary function studies available for comparison.
== END ==
LOC: PSN 07:57
PROVIDERS: Family Provider Family Medicine; PCP Family Medicine; Visit Provider Nurse Practitioner Acute Care
DX: R04.2 Hemoptysis (principal)
CPT/HCPCS: 94060; 94726; 94729

== ENCOUNTER 2018-06-27 02:27 | Inpatient (IN) | payer MEDICARE, SELFPAY ==
[2018-06-27] VITALS (23 sets, daily range): BP systolic 121–157; BP diastolic 50–115; PULSE 50–139; RESP 16–32; TEMP 36.4–38.4; O2SAT 85–98; BMI 38.9; BMI 37.3
--- NOTE | 2018-06-27 02:38 | RAD_ITS ---
STUDY: X-RAY CHEST REASON FOR EXAM: Male, 78 years old. Shortness of breath. TECHNIQUE: Single AP portable view of the chest. Patient is slightly rotated to the right. COMPARISON: 07/10/2017. FINDINGS: There is mild asymmetric increased density in the left lower lung field, suspicious for early pneumonia. The remainder of the lung yusuf are clear. There is no demonstrated pleural abnormality. There is borderline cardiomegaly. There are sternotomy wires and surgical clips suggesting previous CABG. Normal mediastinum and soledad. Normal visualized pulmonary arteries. There is atherosclerotic calcification of the aortic arch with tortuosity. There are multilevel degenerative changes of the visualized thoracic spine. Normal visualized ribs, clavicles, and shoulders. There is no demonstrated abnormality of the visualized soft tissue structures of the upper abdomen. RAD/Chest 1 View (Portable) IMPRESSION: Left lower lobe pneumonia. Follow-up to radiographic resolution is advised. Borderline heart size. Electronically Signed: Tobin Kauffman MD at 3:59 EDT , Service support ,
--- NOTE | 2018-06-27 02:38 | EKG12_ITS ---
Test Reason : SOB Blood Pressure : / mmHG Vent. Rate : 132 BPM Atrial Rate : 071 BPM P-R Int : 000 ms QRS Dur : 092 ms QT Int : 328 ms P-R-T Axes : 000 -20 109 degrees QTc Int : 485 ms Atrial fibrillation with rapid ventricular response with premature ventricular or aberrantly conducte d complexes Nonspecific ST and T wave abnormality Abnormal ECG Confirmed by GLYNN BARROSO, JEFF ([id number]), editor department HEAVENLY JUAREZ ([id number]) on 06/28/2018 1:32:24 PM Referred By: DANO Confirmed By:JEFF MAKI MD
[2018-06-27] MEDS: Ipratropium/Albuterol Sulfate 3 ML AMPUL.NEB INHALATION ×3 (03:06→19:42)
[2018-06-27 03:13] LABS: Absolute Lymphocyte Count 0.47 X10^3/ul (0.83-4.51); Absolute Neutrophil Count 6.3 X10^3/uL (2.0-7.7); Basophil# 0.02 X10^3/uL; Basophil% 0.3 % (0-1); Hematocrit 39.5 % (40-54); Hemoglobin 12.7 g/dl (13.0-16.5); Lymphocyte # 0.47 X10^3/ul (4.0); Lymphocyte % 6.5 % (19-41); Mean Corp Hgb Conc 32.2 g/gl (32-36); Mean Corpuscular Hgb 29.1 pg (27.0-32.0); Mean Corpuscular Volume 90.6 fL (80-94); Mean Platelet Vol. 11.1 fl (6.2-12.0); Monocyte# 0.46 X10^3/uL; Monocyte% 6.3 % (0-10); Neutrophil % 86.8 % (47-70); Platelet Count 127 K/mm3 (150-450); RBC Distribution Width CV 14.7 % (11.6-14.6); RBC Distribution Width SD 48.1 fl (35.1-43.9); Red Blood Count 4.36 M/mm3 (4.6-6.2); White Blood Count 7.3 K/mm3 (4.4-11.0)
[2018-06-27] MEDS: Acetaminophen 500 MG Tablet 1000 MG PO (03:14)
[2018-06-27] MEDS: 0.9% Normal Saline 1,000 ML 1000 ML IV (03:14)
[2018-06-27 03:15] LABS: Differential Indicated SCAN CRITERIA MET; POSITIVE COUNT NO; POSITIVE DIFFERENTIAL YES; POSITIVE MORPHOLOGY NO
[2018-06-27 03:20] LABS: Lactic Acid 1.2 mmol/L (0.4-2.0)
[2018-06-27 03:21] LABS: Anion Gap 6 (5-15); BUN 25 mg/dL (7-18); Chloride 107 mmol/L (98-107); Creatinine, Serum 1.25 mg/dL (0.70-1.30); EST Glomerular Filtration Rate 60 mL/min (>60); Est Glom Filt Rate - Afr Amer 72 mL/min (>60); Glucose 175 mg/dL (74-106); Potassium 4.4 mmol/L (3.5-5.1); Sodium Level 138 mmol/L (136-145)
--- NOTE | 2018-06-27 04:33 | ED.DCSUM_ITS ---
- ER Visit Summary Date of Service: 06/27/18 Chief Complaint: Shortness of breath and cough History of Present Illness: The patient is a 78 M who presents with shortness of breath and cough. Symptoms began last night. He reports fever and chills at home. He complains of congestion rhinorrhea sore throat shortness of breath and productive cough. No chest pain. No abdominal pain nausea vomiting diarrhea. He contacted EMS. Initial pulse ox was 84% on room air. Was placed on oxygen by nasal cannula. Physical Examination: Temperature 101.1, heart rate 139, respiratory rate 29, pulse ox 95% on 4 L. Moist mucous membranes Heart is irregularly irregular and tachycardic He is tachypneic with scattered expiratory wheezing and left-sided rales Abdomen soft nontender Extremities nontender he has symmetric pitting lower extremity edema Alert Test Results: EKG shows atrial fibrillation at a rate of 132 with PVCs. No acute ischemic changes. Labs notable for platelet count of 127, hemoglobin 12.7. Troponin 0 0.028. Lactic acid normal at 1.2. Blood cultures were sent. Chest x-ray shows left lower lobe pneumonia. Emergency Department Course and Treatment: Patient was treated with IV fluids. His tachycardia is likely appropriate response to infectious process and fever. He was given a DuoNeb aerosol. He was given Tylenol for fever. Workup as above does show pneumonia. However lactic acid is normal. He does not meet criteria for severe sepsis or septic shock. He was treated with IV Rocephin and azithromycin. Patient to be discussed with the hospitalist and admitted. After treatment of fever and fluid resuscitation heart rate is ranging 100-110. Treatment Plan: [] Disposition: Admit Impression: Atrial fibrillation with rapid ventricular response Community-acquired pneumonia This note was generated with [employer]oNovaation software. It may contain incorrect words, spelling, and punctuation that were not noted in review of the chart prior to signing ED Disposition - Plan for ED Patient: Referrals: Obed Marinelli MD [Primary Care Provider] -
[2018-06-27] MEDS: Ceftriaxone 1 GM/50 ML BAG IV ×2 (04:48→21:15)
--- NOTE | 2018-06-27 04:52 | HP.PCM_ITS ---
Problem List (1) Sepsis Status: Acute (2) Essential (primary) hypertension Status: Chronic (3) Obesity Status: Chronic Qualifiers: Obesity type: due to excess calories Obesity classification: adult class 2 (BMI 35 - 39.9) Serious obesity comorbidity presence: unspecified whether serious comorbidity present Body mass index: BMI 37.0-37.9 Qualified Code(s): E66.09 - Other obesity due to excess calories; Z68.37 - Body mass index (BMI) 37.0-37.9, adult (4) Ischemic cardiomyopathy Status: Chronic History of Present Illness Date of Admission: 06/27/18 Chief Complaint: SHORTNESS OF BREATH The patient is a 78 year old M with a significant history of CAD status post CABG; congestive heart failure; hypertension; obesity; sleep apnea who presented to the emergency department with 1 day history of progressively worsening shortness of breath. Shortness of breath occurs at rest and it increases with exertion. Associated with symptoms is productive cough of yellow sputum. Further patient has nasal congestion; runny nose; sore throat; wheezing and chills. Also, he has fatigue and weakness. On presentation patient had increased respiratory rate. At the emergency department patient was found to be in A. fib with RVR. Emergency department doctor reported giving patient IV fluids after which his heart rate slowed down to the 110s. A chest x-ray showed left lower lobe infiltrate. Patient received ceftriaxone and azithromycin. Lactic acid was unremarkable. The patient was brought to the ED by the paramedics. Enroute to the hospital his oxygen saturation was 84% on room air. He reported that typical his bowels moves a couple of timesin a day. He presented in the taper and floater. A day before presentation his bowels had not moved. Past Medical History Past Medical History (Chronic Problems): Chronic Problems (Last Reviewed 06/27/18 @ 06:12 by Ruben Gao MD) Essential (primary) hypertension (Chronic) Paroxysmal atrial fibrillation (Chronic) Obesity (Chronic) Hyperlipidemia (Chronic) Atherosclerotic heart disease of [place] coronary artery without angina pectoris (Chronic) CABG X 3 GUAMAN to LAD, SVG- Ramus, SVG- lateral Cx 09/16/2008 Ischemic cardiomyopathy (Chronic) Premature ventricular contractions (Chronic) Dyslipidemia (Chronic) Diastolic congestive heart failure (Chronic) Non-ST elevation MD (NSTEMI) (Chronic) Medical History: Medical History (Last Reviewed 06/27/18 @ 06:12 by Ruben Gao MD) Essential (primary) hypertension (Chronic) I10 Paroxysmal atrial fibrillation (Chronic) I48.0 Obesity (Chronic) E66.9 Hyperlipidemia (Chronic) E78.5 Atherosclerotic heart disease of [place] coronary artery without angina pectoris (Chronic) I25.10 CABG X 3 GUAMAN to LAD, SVG- Ramus, SVG- lateral Cx 09/16/2008 Ischemic cardiomyopathy (Chronic) I25.5 Premature ventricular contractions (Chronic) I49.3 Dyslipidemia (Chronic) E78.5 Diastolic congestive heart failure (Chronic) I50.30 Non-ST elevation MD (NSTEMI) (Chronic) I21.4 GERD (gastroesophageal reflux disease) K21.9 Obstructive sleep apnea G47.33 Type 2 diabetes mellitus E11.9 Acute respiratory failure with hypoxemia (Resolved) J96.01 Atrial fibrillation with RVR (Resolved) I48.91 GERD (gastroesophageal reflux disease) (Resolved) K21.9 Hypomagnesemia (Resolved) E83.42 Obstructive sleep apnea (Resolved) G47.33 Pneumonia (Resolved) J18.9 Allergies No Known Allergies Allergy (Verified 06/27/18 02:31) Home Medications: Ambulatory Orders Medication Instructions Recorded Cholecalciferol (Vitamin D3) 2,000 unit PO DAILY 03/18/16 [Vitamin D3] Cranberry 1 tab PO DAILY 03/18/16 Insulin Regular, Human [Humulin R] unit SQ BID 03/18/16 Lisinopril [Zestril] 20 mg PO QHS 03/18/16 Omeprazole [Prilosec] 20 mg PO DAILY 03/18/16 Vitamin A 1 tab PO DAILY 03/18/16 Nitroglycerin [Nitrostat] 0.4 mg SUBLINGUAL Q5M PRN #1 bottle 03/19/16 carvedilol 25 mg tablet 25 mg PO BID #180 tab 06/23/17 Aspirin [Aspir-Low] 81 mg PO DAILY #0 07/12/17 atorvastatin 40 mg tablet 40 mg PO DAILY #90 tab 01/13/18 isosorbide mononitrate ER 60 mg 60 mg PO DAILY #90 tab 01/13/18 tablet,extended release 24 hr magnesium oxide 400 mg (241.3 mg 400 mg PO DAILY #90 tab 04/12/18 magnesium) tablet Apixaban [Eliquis] 2.5 mg PO BID 06/27/18 Cinnamon Bark [Cinnamon] 500 mg PO DAILY 06/27/18 Surgical History: Surgical History (Last Reviewed 06/27/18 @ 06:12 by Ruben Gao MD) H/O coronary artery bypass surgery (Resolved) Onset Date: 09/16/08 Z95.1 CABG X 3 GUAMAN to LAD, SVG- Ramus, SVG- lateral Cx 09/16/2008 History of left heart catheterization Onset Date: 03/18/16 Z98.890 Surgical History: - - cabg 2008 Psychiatric History: No pertinent psych hx Lives: Alone Smoking Status: Never smoker Alcohol: Rare - *Family History Maternal Family History: Family History (Last Reviewed 06/27/18 @ 06:12 by Ruben Gao MD) Father Myocardial infarction Mother Diabetes Hypertension TIA (transient ischemic attack) Brother Myocardial infarction, Onset Age: 38 CAD (coronary artery disease) Sister CVA (cerebral vascular accident) Hypertension History Items: - - Mother with a history of diabetes, hypertension, TIA. Paternal Family History: Family History (Last Reviewed 06/27/18 @ 06:12 by Ruben Gao MD) Father Myocardial infarction Mother Diabetes Hypertension TIA (transient ischemic attack) Brother Myocardial infarction, Onset Age: 38 CAD (coronary artery disease) Sister CVA (cerebral vascular accident) Hypertension History Items: - - Father with a history of coronary artery disease, MD. Review of Systems Constitutional: Reports: Anorexia, Chills, Weakness, Fatigue. Denies: Fever, Weight Change HEENT: Reports: Nasal Congestion, Sinus Drainage. Denies: Head Aches Cardiovascular: Denies: Chest Pain, Palpitations Respiratory: Reports: Cough, Shortness of breath at rest, Sputum production, Wheezing Gastrointestinal: Reports: Constipation. Denies: Abdominal Pain, Nausea, Vomiting Genitourinary: Denies: Dysuria Musculoskeletal: Denies: Joint Pain, Joint Tenderness Skin: Denies: Rash, Wounds Neurological: Denies: Numbness, Tingling, Focal weakness Psychiatric: Denies: Anxiety, Depression, Homicidal Ideations, Suicidal Ideations Hematologic/ Lymphatic: Denies: Easy Bruising, Easy Bleeding VTE Information - Inpt Only VTE Present on Admission: No VTE Mechan Device Prophylaxis: None VTE Pharm Prophylaxis ordered?: No Reason prophylaxis not ordered:: Treatment Not Indicated - Patient on Eliquis for A. fib continued Patient Problems: Active and Suspected Problems (Last Reviewed 06/27/18 @ 06:12 by Ruben Gao MD) Sepsis (Acute) - Physical Exam General: Alert, Oriented x3, Cooperative HEENT: Atraumatic, PERRLA, EOMI, Normocephalic Neck: Supple, No JVD, Negative Carotid Bruits Lungs: Rales - Bibasilar bases; left worse than right., Tachypneic, Wheezes - Wheezing at the left side of lung. Cardiovascular: Irregular Rate, Tachycardic Abdomen: Bowel Sounds Present, Soft, Non Tender Extremities: No edema, Capillary Refill Less than 3 Seconds Skin: No rashes, No breakdown Musculoskeletal: No Tenderness to Palpation of Joints or Extremities Neurological: Neuro grossly intact Psych/Mental Status: Normal Affect, Appropriate Vital Signs Temp Pulse Resp BP Pulse Ox 98.9 F 112 H 18 157/106 H 96 06/27/18 04:34 06/27/18 04:34 06/27/18 04:34 06/27/18 04:34 06/27/18 04:34 Oxygen Flow Rate (L/min) 2 Oxygen Delivery Method Nasal Cannula Weight: 103.1 kg Body Mass Index (BMI) 38.9 Laboratory Tests Past 24 Hrs 06/27/18 06/27/18 06/27/18 02:33 02:33 02:33 WBC 7.3 RBC 4.36 L Hgb 12.7 L Hct 39.5 L MCV 90.6 MCH 29.1 MCHC 32.2 RDW 14.7 H RDW Differential 48.1 H Plt Count 127 L MPV 11.1 Immature Gran % (Auto) 0.100 Neut % (Auto) 86.8 H Lymph % (Auto) 6.5 L [place] % (Auto) 6.3 Eos % (Auto) 0.0 Baso % (Auto) 0.3 Absolute Neuts (auto) 6.3 Absolute Lymphs (auto) 0.47 L Total Counted Not Reportable Sodium 138 Potassium 4.4 Chloride 107 Carbon Dioxide 25.0 Anion Gap 6 BUN 25 H Creatinine 1.25 Estim Creat Clear Calc 42.10 Est GFR (MDRD) Af Amer 72 Est GFR (MDRD) Non-Af 60 BUN/Creatinine Ratio 20.0 Glucose 175 H Lactic Acid 1.2 Calcium 8.0 L Troponin I 0.028 Assessment/Plan All Active Problems (Last Reviewed 06/27/18 @ 06:12 by Ruben Gao MD) Sepsis (Acute) H/O coronary artery bypass surgery (Resolved 09/16/08) Acute respiratory failure with hypoxemia (Resolved) Atrial fibrillation with RVR (Resolved) GERD (gastroesophageal reflux disease) (Resolved) Hemoptysis (Resolved) Hypomagnesemia (Resolved) Obstructive sleep apnea (Resolved) Pneumonia (Resolved) The patient is a 78 year old M with a significant history of CAD status post CABG; congestive heart failure; hypertension; obesity; sleep apnea who presented to the emergency department with 1 day history of progressively worsening shortness of breath; productive cough; nasal congestion; runny nose; sore throat; chills; fatigue; weakness and found to have severe hypoxia in route to the hospital; and also with A. fib with RVR; tachypnea and radiographic evidence of left lung infiltrate consistent with sepsis secondary to community-acquired pneumonia probably exacerbating his underlying A. fib. Sepsis second to community acquired pneumonia. Lactic acid: 1.2 RR ~18- 24 EKG showed A. fib with rate of 132. Highest documented heart rate was 137. Oxygen saturation: 84% on room air in route to the hospital. Blood culture ?2 is pending Chest x-ray: Left left lower lobe consolidation. Chest x-ray was independently reviewed. I agree with radiologist interpretation. Respiratory Gram stain and culture ordered Antibiotics: Received azithromycin and ceftriaxone the emergency department. Azithromycin and ceftriaxone continued. IV hydration: Received normal saline IV infusion at emergency department. DuoNeb scheduled. Albuterol as needed Legionella antigen screen and Strep antigen ordered Scheduled DuoNeb. Acute hypoxic respiratory failure Reportedly his oxygen saturation was 84% relative to the hospital. Likely secondary to sepsis with consequent pneumonia. Treatment of sepsis as above. Supplemental oxygen to keep oxygen saturation more than 92%. URI Patient with upper URI symptoms of sore throat and congestion, chills and wheezes. We will get respiratory pathogen panel. A. fib with RVR Had documented heart rate was 137. At the time of presentation patient had received normal saline IV bolus and his heart rate was slowed between 90 and mid 110s. His underlying A. fib was probably exacerbated by his sepsis secondary to pneumonia. Continue maintenance normal saline IV infusion. Of note patient has a history of heart failure. So cautious administration of fluids. Placed on PCU on telemetry. Home Eliquis continued If patient continues to be in A. fib with rates more than 110-120 consider rate control/rhythm control. Home carvedilol continued Constipation As needed Dulcolax ordered CAD Status post CABG Lisinopril; Imdur; carvedilol; aspirin; and Lipitor continued Hypertension On presentation his blood pressure was not within goal. Lisinopril, tramadol, carvedilol and continued Trend blood pressure and adjust blood pressure medication. Diabetes mellitus On presentation his blood glucose was high but still within goal. At home he takes correction scale insulin in the morning and nightly. Accu-Chek q. before meals at bedtime .Will order correction scale insulin before every meal at bedtime. CAROLYN Continue CPAP per home setting or for comfort. Bleed oxygen in for saturation more than 92%. DVT prophylaxis: Not indicated. Continue patient on home Eliquis for Afib. Code Visit Inpatient E&M: [id number] Init Hosp L3
[2018-06-27] MEDS: Insulin Lispro 100 UNIT/ML INSULN.PEN SQ ×2 (07:51→21:31)
[2018-06-27] MEDS: 0.9% Normal Saline 1,000 ML 75 ML IV (07:51)
[2018-06-27] MEDS: Aspirin E.C. 81 MG Tablet PO (07:51)
[2018-06-27 08:00] LABS: Bedside Glucose 166 mg/dL (70-110)
[2018-06-27] MEDS: Pantoprazole Sodium 20 MG Tablet PO (09:49)
[2018-06-27] MEDS: APIXABAN 2.5 MG TABLET PO ×2 (09:49→21:09)
[2018-06-27] MEDS: Carvedilol 25 MG Tablet PO ×2 (09:49→21:10)
[2018-06-27] MEDS: Magnesium Oxide 400 MG Tablet PO (09:49)
[2018-06-27] MEDS: guaiFENesin 1,200 MG Tablet 1200 MG PO ×2 (09:49→21:09)
[2018-06-27] MEDS: Isosorbide Mononitrate 60 MG Tablet PO (09:49)
[2018-06-27 11:31] LABS: Bedside Glucose 143 mg/dL (70-110)
--- NOTE | 2018-06-27 12:27 | CASEMGMT ---
Addendum entered by Kal Cardoso 06/27/18 13:52: Call placed to Dr Moscoso's office and msg left re: Eliquis. Call received back from July. July was made aware pt states has not taken his Eliquis since the 30 day's was filled d/t cost was approx $400 for 30-day supply. July was made aware pt is currently @ [facility] and that hospitalist will be notified as well. July also states pt has an appt with MAXIME Gomez, on July 14. Call placed to [facility] @ [phone] and spoke with pharmacist. She confirms [facility] and their phone # is: : . She stated $405 [id number] cost would go toward pt's deductible and then Eliquis would be $40/30-day supply. Pt made aware that per [facility] Pharmacist, $405 would go toward his deductible and then cost for Eliquis would be $40/month. Pt stated he was not aware of this and stated, well then that wouldn't be too bad. Pt was also made aware he has an appt with MAXIME Montoya, @ Dr Moscoso's office on July 14. Appt documented in D/C: Follow up appts intervention. MATTHEW Agosto CM for PCU, made aware of all of the above. Original Note: Addendum entered by Kal Cardoso 06/27/18 13:03: LNOK: Does not have any children. Has a brother and a sister who live in the [place] area. Pt did not want their names/numbers listed. Also has nieces and nephews that live in [place] that he does not see very often. Pt states just wants his friend, Ana, listed as a on air personality and states she would be able to get in touch with his other family members if needed. Original Note: RN CM GRAPHITE GRINDER CM to room to meet with patient for initial transition planning/care coordination assessment. MATTHEW CM introduced self and role at [facility]. Pt voices understanding and consents to assessment at this time. Pt sitting up in chair in room in no distress at this time. Pt is A/O at this time and answers all questions appropriately. Care providers, pharmacy, and demographics verified/updated at this time. PCP: Obed Marinelli Specialists: Ramila Moscoso Pharmacy: [facility] Insurance: [employer] [facility] [employer] [facility] Prescription Benefit: [employer]. has not been taking Eliquis prescribed by Dr Moscoso since the 30-day savings card was used. States cost/30 days since then is approx $400 and he cannot afford it and therefore has not been taking it. He states he has not notified Dr Moscoso. Living Will/HPOA: States does not have LW or HCPOA . Interested in more information but states does not want to talk with SW at this time to complete paperwork. Provided information on advanced directives and given Social Service rac card with number to call if chooses in the future to utilize [facility] social work for advanced directive completion. Educated patient that, if patient so chooses, can come back to [facility] and meet with a SW as an outpatient to complete health care advanced directives. Patient expresses understanding. LNOK: Living Arrangements: Lives alone in one-story home. Independent. Transportation: Pt states drives self and states no transportation concerns at this time. States friend, Ana Huerta, can drive him home on d/c . DME: States has the following DME: CPAP (got through [employer]). Has cane but does not use. No home O2 or nebulizer. Pt states no need for further DME at this time. HHC/SNF: Has used HHC agency in the past after [facility], but does not remember name. Hx being @ [facility]. Denies need for HHC. Pt wishes to return home and states has no concerns with going home at time of discharge. CM to follow for any further discharge planning/needs. Pt voices no further concerns/needs at this time. Advised pt to ask for CM if any further questions/concerns/needs arise. Voices understanding. PLAN: Home Andre MCNAIR RN, CM
--- NOTE | 2018-06-27 12:28 | PCM.PROGNOTE ---
Patient Problems: Active and Suspected Problems (Last Reviewed 06/27/18 @ 06:12 by Ruben Gao MD) Sepsis (Acute) Subjective: The patient is a 78-year-old male with a past medical history of hypertension, paroxysmal atrial fibrillation, obesity, hyperlipidemia, CAROLYN, coronary artery disease, CABG x3 vessels, ischemic cardiomyopathy and chronic congestive heart failure who presented to the ED at [facility] on 06/27/2018 complaining of increasing SOB X 1 day. Vital signs of presentation to the emergency room are temp 101.1, pulse rate 139, blood pressure 134/113, respiratory rate 32 and he was 85% saturated on room air. White blood cell count was 7.3 with 87% neutrophils. Hemoglobin was 12.7 which is actually a little higher than his baseline. Platelets were low at 127,000. BMP was remarkable for an increased BUN at 25 with a creatinine of 1.25 (within his baseline). Lactic acid was 1.2. Troponin was 0.028. Chest x-ray shows infiltrate in the left base and cardiomegaly. He was admitted to the hospital with a diagnosis of sepsis secondary to community-acquired pneumonia and was started on azithromycin and ceftriaxone. Legionella and streptococcal antigens in the urine were negative. Sputum GM stain shows 3+ WBC's and 2+ GM + cocci. Influenza swab is negative. Respiratory panel is pending Objective: PHYSICAL EXAM: GENERAL: alert, oriented X 3, Cooperative, NAD ORAL: moist mucosa, no mucosal lesions NECK: No JVD, supple, trachea midline LUNGS: coarse crackles in both bases, L>R, + wheezes on the left primarily HEART: irregular, Normal S1 and S2, no rub, no gallop ABDOMEN: soft, NT, ND, BS present, no guarding with palpation EXTREMITIES: no edema, no cyanosis, no calf tenderness SKIN: No rashes, no breakdown NEUROLOGIC: no focal neurologic deficits PSYCH: appropriate, normal affect, pleasant - Physical Exam Vital Signs Temp Pulse Resp BP Pulse Ox 97.6 F L 84 20 H 121/50 H 91 06/27/18 07:49 06/27/18 11:06 06/27/18 07:49 06/27/18 07:49 06/27/18 09:40 Oxygen Flow Rate (L/min) 2 Oxygen Delivery Method Nasal Cannula Weight: 217 lb 2.485 oz Body Mass Index (BMI) 37.3 Intake and Output for Last 24 Hours 06/25/18 06/26/18 06/27/18 23:59 23:59 23:59 Intake Total 883 / 883 Output Total 400 / 400 Balance 483 / 483 Microbiology Past 72 Hours 06/27/18 08:15 Streptococcus pneumoniae Antigen (M - Final Urine, Clean Catch 06/27/18 08:15 Legionella Antigen - Final Urine, Clean Catch Laboratory Tests Past 24 Hrs 06/27/18 06/27/18 06/27/18 02:33 02:33 02:33 WBC 7.3 RBC 4.36 L Hgb 12.7 L Hct 39.5 L MCV 90.6 MCH 29.1 MCHC 32.2 RDW 14.7 H RDW Differential 48.1 H Plt Count 127 L MPV 11.1 Immature Gran % (Auto) 0.100 Neut % (Auto) 86.8 H Lymph % (Auto) 6.5 L [place] % (Auto) 6.3 Eos % (Auto) 0.0 Baso % (Auto) 0.3 Absolute Neuts (auto) 6.3 Absolute Lymphs (auto) 0.47 L Total Counted Not Reportable Sodium 138 Potassium 4.4 Chloride 107 Carbon Dioxide 25.0 Anion Gap 6 BUN 25 H Creatinine 1.25 Estim Creat Clear Calc 42.10 Est GFR (MDRD) Af Amer 72 Est GFR (MDRD) Non-Af 60 BUN/Creatinine Ratio 20.0 Glucose 175 H Lactic Acid 1.2 Calcium 8.0 L Troponin I 0.028 POC Glucose 06/27/18 06/27/18 11:24 07:44 POC Glucose 143 H 166 H Medical Necessity - Tobacco Use Smoking Status: Never smoker Assessment/Plan All Active Problems (Last Reviewed 06/27/18 @ 06:12 by Ruben Gao MD) Sepsis (Acute) H/O coronary artery bypass surgery (Resolved 09/16/08) Acute respiratory failure with hypoxemia (Resolved) Atrial fibrillation with RVR (Resolved) GERD (gastroesophageal reflux disease) (Resolved) Hemoptysis (Resolved) Hypomagnesemia (Resolved) Obstructive sleep apnea (Resolved) Pneumonia (Resolved) Impressions 1. sepsis due to CAP 2. CAP 3. acute respiratory insufficiency with hypoxia 4. Atrial fibrillation with rapid ventricular response 5. Coronary artery disease with history of CABG 6. Hypertension 7. Diabetes mellitus type 2 8. CAROLYN 9. Chronic anticoagulation with Eliquis 10. Mild pulmonary hypertension with a PA systolic estimated at 39 in July 2017 11. Mild concentric left ventricular hypertrophy with reserved ejection fraction 12. Normochromic normocytic anemia with thrombocytopenia Continue azithromycin and Rocephin pending results of sputum culture Continue aerosolized bronchodilators and mucolytic's M with a pulse ox on room air at discharge
[2018-06-27 16:31] LABS: Bedside Glucose 113 mg/dL (70-110)
[2018-06-27] MEDS: Atorvastatin Calcium 40 MG Tablet PO (21:10)
[2018-06-27] MEDS: Lisinopril 20 MG Tablet PO (21:13)
[2018-06-27 22:21] LABS: Bedside Glucose 152 mg/dL (70-110)
[2018-06-28] VITALS (20 sets, daily range): BP systolic 108–151; BP diastolic 59–97; PULSE 53–121; RESP 18–28; TEMP 36.4–38.5; O2SAT 93–98
--- NOTE | 2018-06-28 00:15 | CPS ---
Explained to pt about CPAP. pt wanted to bring his unit in from home, family unable to bring this night, but pt just wanted to wear nasal o2 2L pt was instructed to call for nurse if he changed his mind or couldn't sleep without cpap.
[2018-06-28] MEDS: Albuterol 2.5 MG/3 ML VIAL.NEB. INHALATION (02:46)
[2018-06-28] MEDS: Ipratropium/Albuterol Sulfate 3 ML AMPUL.NEB INHALATION ×3 (06:36→18:54)
[2018-06-28] MEDS: Insulin Lispro 100 UNIT/ML INSULN.PEN SQ ×3 (07:04→21:40)
[2018-06-28 07:31] LABS: Bedside Glucose 163 mg/dL (70-110)
[2018-06-28] MEDS: Acetaminophen 325 MG Tablet 650 MG PO (07:33)
[2018-06-28] MEDS: Magnesium Oxide 400 MG Tablet PO (08:04)
[2018-06-28] MEDS: APIXABAN 2.5 MG TABLET PO ×2 (08:04→21:34)
[2018-06-28] MEDS: Carvedilol 25 MG Tablet PO ×2 (08:04→21:34)
[2018-06-28] MEDS: Aspirin E.C. 81 MG Tablet PO (08:05)
[2018-06-28] MEDS: Isosorbide Mononitrate 60 MG Tablet PO (08:05)
[2018-06-28] MEDS: Pantoprazole Sodium 20 MG Tablet PO (08:05)
[2018-06-28] MEDS: guaiFENesin 1,200 MG Tablet 1200 MG PO ×2 (08:05→21:34)
--- NOTE | 2018-06-28 08:38 | RAD_ITS ---
STUDY: X-RAY CHEST REASON FOR EXAM: Male, 78 years old. Shortness of breath. Sepsis. TECHNIQUE: PA and lateral views of the chest. COMPARISON: June 27, 2018 (0242 hours). FINDINGS: Telemetry wires overlie the chest. The lungs are hypoexpanded. Slightly increased density at both lung bases when compared to the earlier study. There is no demonstrated pleural abnormality. Sternal cerclage wires are present from a prior sternotomy. The heart remains borderline enlarged. Normal mediastinum and soledad. There is mild increasing pulmonary vascular prominence. Normal visualized aortic arch and descending thoracic aorta. No visualized osseous changes. There is no demonstrated abnormality of the visualized soft tissue structures of the upper abdomen. RAD/Chest PA and Lateral IMPRESSION: 1. Increasing bibasilar infiltrates. 2. Borderline cardiomegaly with mild prominence of the central hilar vasculature. Electronically Signed: Evan Queen DO at 10:53 EDT Tel [phone], Service support ,
[2018-06-28 09:40] LABS: BNP,B-Type NATRIURETIC PEPTIDE 716.4 pg/mL (0-100)
[2018-06-28] MEDS: predniSONE 20 MG Tablet 40 MG PO (11:36)
[2018-06-28] MEDS: Furosemide 40 MG/4 ML Vial IV ×2 (11:36→18:21)
[2018-06-28] MEDS: Ceftriaxone 1 GM/50 ML BAG IV (11:39)
[2018-06-28 12:20] LABS: Bedside Glucose 116 mg/dL (70-110)
--- NOTE | 2018-06-28 13:54 | ECHOCS_ITS ---
Reason For Study: CHF Procedure This was a 2D Doppler, Color Flow transthoracic echocardiogram. The study was technically difficult. Due to arrhythmia and body habitus. Contrast injection was performed. Exam performed portable in patient room. Left Ventricle Normal LV size. Mild concentric left ventricular hypertrophy. The estimated ejection fraction is 45 %. No regional wall motion abnormalities noted. Right Ventricle Normal RV size. Normal systolic function. Atria The left atrium is moderately enlarged. The right atrium is moderately enlarged. Mitral Valve Normal mitral valve. Tricuspid Valve Normal tricuspid valve. Mild (1+) tricuspid valve insufficiency. Pulmonary artery systolic pressure is 45 mmHg. Aortic Valve Trisinus/trileaflet aortic valve. Mild focal aortic valve calcification. Pulmonic Valve Normal pulmonic valve. Great Vessels Normal aortic root. Pericardium/Pleural No pericardial effusion. Medication Diluted definity 4.0ml given slow IV push to enhance endocardial definition. MMode/2D Measurements & Calculations LVIDd: 5.3 cm IVSd: 1.3 cm Ao root diam: 3.3 cm LVIDs: 4.2 cm LVPWd: 1.3 cm RVDd: 4.6 cm FS: 21.3 % LAV(MOD-bp): 84.2 ml LA A4 area: 25.9 cm2 LA dimension(2D): 4.9 cm LAV(MOD-bp) Indexed: 41.6 ml/m2 LAV(MOD-sp2): 72.8 ml LAV(MOD-sp4): 88.5 ml RA A4 area: 25.4 cm2 Doppler Measurements & Calculations MV E max reyes: 121.7 cm/sec Ao V2 max: 165.0 cm/sec LV V1 max: 94.0 cm/sec Ao max P.9 mmHg LV V1 max P.5 mmHg PA V2 max: 107.1 cm/sec TR max reyes: 298.4 cm/sec TR max P.3 mmHg Interpretation Summary Normal LV size. Mild concentric left ventricular hypertrophy. The left atrium is moderately enlarged. The right atrium is moderately enlarged. Pulmonary artery systolic pressure is 45 mmHg. Contrast injection was performed. Ordering Physician: Jeronimo Devi Referring Physician: Obed Marinelli Performed By: Amada Penn RDCS, RVT
--- NOTE | 2018-06-28 13:55 | PN_ITS ---
Patient Problems: Active and Suspected Problems (Last Reviewed 06/27/18 @ 06:12 by Ruben Gao MD) Sepsis (Acute) Subjective: Ongoing shortness of breath, productive cough, occasionally hemoptysis noted. Continues to have fevers and sweats overnight. He did test positive for human [place] pneumo virus. He does have a history of A. fib and congestive heart failure chest x-ray today demonstrates increasing bibasilar infiltrates borderline cardiomegaly with prominent hilar region. - Physical Exam General: Alert, Oriented x3, Cooperative HEENT: Atraumatic, PERRLA, EOMI, Normocephalic Neck: Supple, No JVD, Negative Carotid Bruits Lungs: Rales, Wheezes Cardiovascular: Regular rate, No murmurs Abdomen: Bowel Sounds Present, Soft, Non Tender Extremities: No edema, Capillary Refill Less than 3 Seconds Skin: No rashes, No breakdown Musculoskeletal: No Tenderness to Palpation of Joints or Extremities Neurological: Cranial nerves II-XII grossly intact Psych/Mental Status: Normal Affect, Appropriate, Alert and oriented to time, place, person, mood and affect Vital Signs Temp Pulse Resp BP Pulse Ox 98.3 F 67 18 108/59 L 94 06/28/18 11:40 06/28/18 13:34 06/28/18 13:34 06/28/18 11:40 06/28/18 11:40 Oxygen Flow Rate (L/min) 2 Oxygen Delivery Method Room Air Weight: 217 lb 2.485 oz Body Mass Index (BMI) 37.3 Intake and Output for Last 24 Hours 06/26/18 06/27/18 06/28/18 23:59 23:59 23:59 Intake Total 1769 / 1769 670 / 670 Output Total 400 / 400 Balance 1369 / 1369 670 / 670 Microbiology Past 72 Hours 06/27/18 Unknown Gram Stain - Final Sputum, Expectorated/Coughed Respiratory Culture - Preliminary Appears to be normal respiratory toni. Further studies to follow. 06/27/18 02:33 Blood Culture - Preliminary Blood Culture (Wb) - Anticubital Right 06/27/18 09:30 Respiratory Panel (PCR) - Final Mucosa - Nasopharyngeal Human [place] 06/27/18 14:00 Influenza Types A,B Direct FA (LOGAN) - Final Mucosa - Nasopharyngeal 06/27/18 08:15 Streptococcus pneumoniae Antigen (M - Final Urine, Clean Catch 06/27/18 08:15 Legionella Antigen - Final Urine, Clean Catch Laboratory Tests Past 24 Hrs 06/28/18 08:58 B-Natriuretic Peptide 716.4 H POC Glucose 06/28/18 06/28/18 06/27/18 11:33 07:01 21:29 POC Glucose 116 H 163 H 152 H 06/27/18 16:21 POC Glucose 113 H Medical Necessity - Tobacco Use Smoking Status: Never smoker Assessment/Plan All Active Problems (Last Reviewed 06/27/18 @ 06:12 by Ruben Gao MD) Sepsis (Acute) H/O coronary artery bypass surgery (Resolved 09/16/08) Acute respiratory failure with hypoxemia (Resolved) Atrial fibrillation with RVR (Resolved) GERD (gastroesophageal reflux disease) (Resolved) Hemoptysis (Resolved) Hypomagnesemia (Resolved) Obstructive sleep apnea (Resolved) Pneumonia (Resolved) 1. Sepsis secondary to community-acquired pneumonia with acute hypoxic respiratory failure-there is also component of acute on chronic diastolic marcial estive heart failure (complicated by pulmonary hypertension). Chest x-ray today demonstrates increasing infiltrates. Respiratory panel was positive for human [place]. Sputum culture was negative. He does have some mild hemoptysis which he has had in the past. We will continue to monitor his H&H. He we may have to hold off his anticoagulation if this gets worse. We will humidify his oxygen to see if this helps. Very wheezy on exam today. Continue Rocephin and azithromycin. We will add Lasix as there appears to be a component of failure. Also will add prednisone burst given his viral etiology and severe wheezing on exam. I cannot find record of him having a history of underlying lung disease. I will order repeat echocardiogram as the most recent one was about 1 year prior. At that time he had an EF of 55%. PAS P was 39 mmHg. 2. Atrial fibrillation with rapid ventricular response-continue Coreg and Eliquis. This is likely secondary to hypoxia and sepsis. 3. Coronary artery disease, history of CABG-continue home medications 4. Hypertension-stable 5. Type 2 diabetes mellitus-additional sliding scale insulin provided 6. Obstructive sleep apnea DVT prophylaxis: Eliquis Discharge planning: PTOT eval's This patient was seen by Jeronimo Devi PA-C under the supervision of Doctor Arrington.
[2018-06-28 16:26] LABS: Bedside Glucose 212 mg/dL (70-110)
[2018-06-28] MEDS: 0.9% NaCl Peripheral Flush Adult/Peds IV (18:21)
[2018-06-28] MEDS: Lisinopril 20 MG Tablet PO (21:34)
[2018-06-28] MEDS: Atorvastatin Calcium 40 MG Tablet PO (21:34)
[2018-06-28 22:10] LABS: Bedside Glucose 212 mg/dL (70-110)
[2018-06-29] VITALS (9 sets, daily range): BP systolic 117–150; BP diastolic 65–88; PULSE 56–102; RESP 16–20; TEMP 36.3–36.9; O2SAT 94–99
[2018-06-29 05:33] LABS: Anion Gap 8 (5-15); BUN 30 mg/dL (7-18); Calcium,Total 8.3 mg/dL (8.5-10.1); Chloride 103 mmol/L (98-107); EST Glomerular Filtration Rate 63 mL/min (>60); Est Glom Filt Rate - Afr Amer 76 mL/min (>60); Estimated Creatinine Clearance 43.85 ml/min; Glucose 160 mg/dL (74-106); Sodium Level 139 mmol/L (136-145)
[2018-06-29 05:41] LABS: Absolute Lymphocyte Count 0.53 X10^3/ul (0.83-4.51); Absolute Neutrophil Count 4.9 X10^3/uL (2.0-7.7); Hematocrit 36.5 % (40-54); Hemoglobin 11.6 g/dl (13.0-16.5); Lymphocyte # 0.53 X10^3/ul (4.0); Lymphocyte % 8.9 % (19-41); Mean Corp Hgb Conc 31.8 g/gl (32-36); Mean Corpuscular Hgb 28.4 pg (27.0-32.0); Mean Corpuscular Volume 89.2 fL (80-94); Mean Platelet Vol. 10.6 fl (6.2-12.0); Monocyte% 8.4 % (0-10); Neutrophil # 4.92 X10^3/uL (2.7-7.7); Neutrophil % 82.5 % (47-70); Platelet Count 141 K/mm3 (150-450); RBC Distribution Width CV 14.2 % (11.6-14.6); RBC Distribution Width SD 46.3 fl (35.1-43.9); Red Blood Count 4.09 M/mm3 (4.6-6.2)
[2018-06-29 05:47] LABS: Differential Indicated SCAN CRITERIA MET; POSITIVE COUNT NO; POSITIVE DIFFERENTIAL YES; POSITIVE MORPHOLOGY NO
[2018-06-29] MEDS: Ipratropium/Albuterol Sulfate 3 ML AMPUL.NEB INHALATION ×2 (06:56→13:53)
[2018-06-29 07:01] LABS: Bedside Glucose 133 mg/dL (70-110)
[2018-06-29] MEDS: Ceftriaxone 1 GM/50 ML BAG IV (08:29)
[2018-06-29] MEDS: 0.9% NaCl Peripheral Flush Adult/Peds IV (08:29)
[2018-06-29] MEDS: Carvedilol 25 MG Tablet PO (08:33)
[2018-06-29] MEDS: Magnesium Oxide 400 MG Tablet PO (08:33)
[2018-06-29] MEDS: Isosorbide Mononitrate 60 MG Tablet PO (08:33)
[2018-06-29] MEDS: guaiFENesin 1,200 MG Tablet 1200 MG PO (08:34)
[2018-06-29] MEDS: APIXABAN 2.5 MG TABLET PO (08:34)
[2018-06-29] MEDS: predniSONE 20 MG Tablet 40 MG PO (08:34)
[2018-06-29] MEDS: Aspirin E.C. 81 MG Tablet PO (08:34)
[2018-06-29] MEDS: Pantoprazole Sodium 20 MG Tablet PO (08:34)
[2018-06-29] MEDS: Insulin Lispro 100 UNIT/ML INSULN.PEN SQ (11:14)
[2018-06-29] MEDS: Furosemide 40 MG/4 ML Vial IV (11:14)
[2018-06-29 11:25] LABS: Bedside Glucose 278 mg/dL (70-110)
[2018-06-29 16:20] LABS: Bedside Glucose 185 mg/dL (70-110)
--- NOTE | 2018-06-29 16:48 | DCINST_ITS ---
- Discharge Diagnoses Current Active Problems: Current Active and Chronic Problems (Last Reviewed 06/27/18 @ 06:12 by Ruben Gao MD) Sepsis (Acute) You will use the following diet at home:: Cardiac, Other Your food should be the consistency of: Regular Your liquids should be the consistency of: Regular/Thin Discharge Activity: - - Avoid exposure to any strong smells such as bleach, cleaning products, strong colognes or perfumes, paint fumes and smoke of any kind. Avoid sudden exposure to cold air because this can cause bronchospasm. You may want to cover your mouth when you go outside in the winter. Avoid exposure to anyone who is sick with a cough or sore throat. Call your doctor if you observe: Fever of 101 or Higher, Shortness of breath, Dizziness, Fainting spells, Swelling in the ankles, Chest pain, - - Call your PCP if severe diarrhea ( > 5 stools a day), painful sores in the mouth, painful swallowing, rash or itching. Taking a probiotic such as Lactobacillus or Kefir can help with loose stools while taking antibiotics. Instructions: Caring for Your Inhaler, Discharge Instructions: Using a Metered- Dose Inhaler Additional Instructions: I am sending you home with an inhaler for the wheezing. Use the inhaler every 4 hours while awake for the next 5-7 days and then you can change to 2 puffs as needed for shortness of breath or wheeZing. You had some heart failure in the hospital and the breathing improved with a diuretic. I am sending you home with a prescription for Lasix and you will take it once a day in the morning. See your family doctor in 1 week and have blood work done to check the kidney function and the potassium. Take all of the antibiotic as prescribed. Allergies/Adverse Reactions: Allergies No Known Allergies Allergy (Verified 06/27/18 02:31) Medications to take at Discharge Cholecalciferol (Vitamin D3) [Vitamin D3] 2,000 unit PO DAILY 03/18/16 Cranberry 1 tab PO DAILY 03/18/16 Insulin Regular, Human [Humulin R] unit SQ BID 03/18/16 Lisinopril [Zestril] 20 mg PO QHS 03/18/16 Omeprazole [Prilosec] 20 mg PO DAILY 03/18/16 Vitamin A 1 tab PO DAILY 12/15/16 Nitroglycerin [Nitrostat] 0.4 mg SUBLINGUAL Q5M PRN #1 bottle 03/19/16 carvedilol 25 mg tablet 25 mg PO BID #180 tab 06/23/17 Aspirin [Aspir-Low] 81 mg PO DAILY #0 07/12/17 atorvastatin 40 mg tablet 40 mg PO DAILY #90 tab 01/13/18 isosorbide mononitrate ER 60 mg tablet,extended release 24 hr 60 mg PO DAILY #90 tab 01/13/18 magnesium oxide 400 mg (241.3 mg magnesium) tablet 400 mg PO DAILY #90 tab 04/12/18 Apixaban [Eliquis] 2.5 mg PO BID 06/27/18 Cinnamon Bark [Cinnamon] 500 mg PO DAILY 06/27/18 Albuterol Inhaler [Ventolin Hfa] 2 puff INHALATION Q4H PRN #1 inhaler 06/29/18 Cefuroxime Axetil [Ceftin] 500 mg PO BID 10 Days #20 tablet 06/29/18 Guaifenesin [Mucinex] 1,200 mg PO BID #20 tablet 06/29/18 Prednisone 10 mg PO UD #30 tab 06/29/18 The following prescriptions were given: Albuterol Inhaler [Ventolin Hfa] 2 puff INHALATION Q4H PRN #1 inhaler Prednisone 10 mg PO UD #30 tab Cefuroxime Axetil [Ceftin] 500 mg PO BID 10 Days #20 tablet Guaifenesin [Mucinex] 1,200 mg PO BID #20 tablet Primary Care Physician: Obed Marinelli MD [Primary Care Provider] - Please follow up with your Primary Care Physician in: 5-7days Test Results: Test results from this visit will be discussed in further detail at your follow- up appointment, if applicable. Please Follow Up With: July Quarles PA When: MAXIME for Dr Moscoso Proposed Discharge Date: 06/29/18
--- NOTE | 2018-06-29 16:56 | PCM.DC.SUM ---
Discharge Date and Diagnosis Date of Admission: 06/27/18 Date of Discharge: 06/29/18 - Primary Discharge Diagnosis Active and Suspected Problems (Last Reviewed 06/27/18 @ 06:12 by Ruben Gao MD) Pneumonia due to human metapneumovirus (hMPV) (Acute) Atrial fibrillation with RVR (Acute) Acute respiratory insufficiency (Acute) Acute diastolic CHF Bronchospasm, acute (Acute) CAP (community acquired pneumonia) (Acute) Sepsis (Acute) - Secondary Discharge Diagnosis Chronic Problems (Last Reviewed 06/27/18 @ 06:12 by Ruben Gao MD) Chronic anticoagulation (Chronic) Normochromic normocytic anemia (Chronic) Mild concentric left ventricular hypertrophy (LVH) (Chronic) Pulmonary hypertension (Chronic) Essential (primary) hypertension (Chronic) Paroxysmal atrial fibrillation (Chronic) Obesity (Chronic) Hyperlipidemia (Chronic) Atherosclerotic heart disease of [place] coronary artery without angina pectoris (Chronic) CABG X 3 GUAMAN to LAD, SVG- Ramus, SVG- lateral Cx 09/16/2008 Ischemic cardiomyopathy (Chronic) Premature ventricular contractions (Chronic) Dyslipidemia (Chronic) Diastolic congestive heart failure (Chronic) Non-ST elevation MN (NSTEMI) -inactive Hospital Course and Treatment Imaging Results: Clinical Impression(s) from Imaging Studies Chest X-Ray 06/27/18 02:38 IMPRESSION: Left lower lobe pneumonia. Follow-up to radiographic resolution is advised. Borderline heart size. Electronically Signed: Tobin Kauffman MD at 3:59 EDT , Service support , Chest X-Ray 06/28/18 08:38 IMPRESSION: 1. Increasing bibasilar infiltrates. 2. Borderline cardiomegaly with mild prominence of the central hilar vasculature. Electronically Signed: Evan Queen DO at 10:53 EDT Tel [phone], Service support , Microbiology 06/27/18 02:33 Blood Culture (Wb) - Anticubital Right Blood Culture - Final Coag Negative Staph 06/27/18 03:15 Blood Culture (Wb) - Anticubital Right Blood Culture - Final No growth in 5 days. 06/27/18 Unknown Sputum, Expectorated/Coughed Gram Stain - Final 06/27/18 Unknown Sputum, Expectorated/Coughed Respiratory Culture - Final 06/27/18 09:30 Mucosa - Nasopharyngeal Respiratory Panel (PCR) - Final Human [place] 06/27/18 14:00 Mucosa - Nasopharyngeal Influenza Types A,B Direct FA (LOGAN) - Final 06/27/18 08:15 Urine, Clean Catch Streptococcus pneumoniae Antigen (M - Final 06/27/18 08:15 Urine, Clean Catch Legionella Antigen - Final none Operations: None Procedures: 2-D Echocardiogram Summary of Care Provided: The patient is a 78 year old M with a PMH od CAD, CAROLYN, HTN, PAF, CAD with hx of CABG and obesity who presented to the ED c/o increasing SOB and swelling of the legs. Temp in the ED was 101.1 and the CXR showed LLL pneumonia and Increased PVC. HR was 139. He was admitted to the hospital with a dx of sepsis due to CAP with acute diastolic CHF and exacerbation COPD. He was started on antibiotics, ATC aerosolized bronchodilators and IV diuretics. Respiratory panel was + for Human [place] pneumo virus. 1 of 2 blood cultures was positive for Ocag negative Staph. The sputum culture had normal respiratory toni. An ECHO showed a preserved EF with pulmonary HTN and Biatrial enlargement. He improved over a few days and was ambulated on RA prior to DC. He had no oxygen requirement. He was discharged home on a prednisone taper, Lasix and Ceftin. He will follow up with Dr. Obed Marinelli in 1 week and with . He should have a BMP in 5-7 days and this can be ordered by Dr. Marinelli at his appt. Alert and oriented x 3 H- RRR, no gallop trace pretibial edemA Lungs - no crackles and no wheezes, not tachypneic and no conversational dyspnea - Physical Exam Vital Signs Temp Pulse Resp BP Pulse Ox 97.4 F L 56 L 16 146/73 H 94 06/29/18 15:50 06/29/18 15:50 06/29/18 15:50 06/29/18 15:50 06/29/18 15:50 Oxygen Flow Rate (L/min) 2 Oxygen Delivery Method Room Air Weight: 217 lb 2.485 oz Body Mass Index (BMI) 37.3 Intake and Output for Last 24 Hours 06/27/18 06/28/18 06/29/18 23:59 23:59 23:59 Intake Total 1769 / 1769 910 / 910 240 / 240 Output Total 400 / 400 3625 / 3625 2300 / 2300 Balance 1369 / 1369 -2715 / -2715 -2060 / -2060 Microbiology Past 72 Hours 06/27/18 03:15 Blood Culture - Preliminary Blood Culture (Wb) - Anticubital Right No growth in 48 hours. 06/27/18 Unknown Gram Stain - Final Sputum, Expectorated/Coughed Respiratory Culture - Final 06/27/18 02:33 Blood Culture - Preliminary Blood Culture (Wb) - Anticubital Right Coag Negative Staph 06/27/18 09:30 Respiratory Panel (PCR) - Final Mucosa - Nasopharyngeal Human [place] 06/27/18 14:00 Influenza Types A,B Direct FA (LOGAN) - Final Mucosa - Nasopharyngeal 06/27/18 08:15 Streptococcus pneumoniae Antigen (M - Final Urine, Clean Catch 06/27/18 08:15 Legionella Antigen - Final Urine, Clean Catch Laboratory Tests Past 24 Hrs 06/29/18 06/29/18 05:00 05:00 WBC 6.0 RBC 4.09 L Hgb 11.6 L Hct 36.5 L MCV 89.2 MCH 28.4 MCHC 31.8 L RDW 14.2 RDW Differential 46.3 H Plt Count 141 L MPV 10.6 Immature Gran % (Auto) 0.200 Neut % (Auto) 82.5 H Lymph % (Auto) 8.9 L [place] % (Auto) 8.4 Eos % (Auto) 0.0 Baso % (Auto) 0.0 Absolute Neuts (auto) 4.9 Absolute Lymphs (auto) 0.53 L Total Counted Not Reportable Sodium 139 Potassium 4.0 Chloride 103 Carbon Dioxide 28.0 Anion Gap 8 BUN 30 H Creatinine 1.20 Estim Creat Clear Calc 43.85 Est GFR (MDRD) Af Amer 76 Est GFR (MDRD) Non-Af 63 BUN/Creatinine Ratio 25.0 H Glucose 160 H Calcium 8.3 L POC Glucose 06/29/18 06/29/18 06/29/18 16:16 11:10 06:52 POC Glucose 185 H 278 H 133 H 06/28/18 21:38 POC Glucose 212 H Discharge Activity: - - Avoid exposure to any strong smells such as bleach, cleaning products, strong colognes or perfumes, paint fumes and smoke of any kind. Avoid sudden exposure to cold air because this can cause bronchospasm. You may want to cover your mouth when you go outside in the winter. Avoid exposure to anyone who is sick with a cough or sore throat. Call your doctor if you observe: Fever of 101 or Higher, Shortness of breath, Dizziness, Fainting spells, Swelling in the ankles, Chest pain, - - Call your PCP if severe diarrhea ( > 5 stools a day), painful sores in the mouth, painful swallowing, rash or itching. Taking a probiotic such as Lactobacillus or Kefir can help with loose stools while taking antibiotics. Home Medications: Medications to take at Discharge Cholecalciferol (Vitamin D3) [Vitamin D3] 2,000 unit PO DAILY 03/18/16 Cranberry 1 tab PO DAILY 03/18/16 Insulin Regular, Human [Humulin R] unit SQ BID 03/18/16 Lisinopril [Zestril] 20 mg PO QHS 03/18/16 Omeprazole [Prilosec] 20 mg PO DAILY 03/18/16 Vitamin A 1 tab PO DAILY 03/18/16 Nitroglycerin [Nitrostat] 0.4 mg SUBLINGUAL Q5M PRN #1 bottle 03/19/16 carvedilol 25 mg tablet 25 mg PO BID #180 tab 06/23/17 Aspirin [Aspir-Low] 81 mg PO DAILY #0 07/12/17 atorvastatin 40 mg tablet 40 mg PO DAILY #90 tab 01/13/18 isosorbide mononitrate ER 60 mg tablet,extended release 24 hr 60 mg PO DAILY #90 tab 01/13/18 magnesium oxide 400 mg (241.3 mg magnesium) tablet 400 mg PO DAILY #90 tab 04/12/18 Cinnamon Bark [Cinnamon] 500 mg PO DAILY 06/27/18 Albuterol Inhaler [Ventolin Hfa] 2 puff INHALATION Q4H PRN #1 inhaler 06/29/18 Cefuroxime Axetil [Ceftin] 500 mg PO BID 10 Days #20 tablet 06/29/18 Furosemide [Lasix] 40 mg PO DAILY #30 tablet 03/28/19 Guaifenesin [Mucinex] 1,200 mg PO BID #20 tablet 06/29/18 Prednisone 10 mg PO UD #30 tab 06/29/18 apixaban 2.5 mg tablet 2.5 mg PO BID #60 tab 06/30/18 Following Prescrptions Were Given to Patient: Albuterol Inhaler [Ventolin Hfa] 2 puff INHALATION Q4H PRN #1 inhaler Furosemide [Lasix] 40 mg PO DAILY #30 tablet Prednisone 10 mg PO UD #30 tab Cefuroxime Axetil [Ceftin] 500 mg PO BID 10 Days #20 tablet Guaifenesin [Mucinex] 1,200 mg PO BID #20 tablet Primary Care Physician: Obed Marinelli MD [Primary Care Provider] - Please follow up with your Primary Care Physician in: 5-7days Please Follow Up With: July Quarles PA When: PA for Dr Moscoso Patient Instructions: Caring for Your Inhaler, Discharge Instructions: Using a Metered-Dose Inhaler Minutes spent on discharge:: 30 Patient Condition:: Good Medical Necessity - Tobacco Use Smoking Status: Never smoker Tobacco Use: Non-smoker Meaningful Use Info Meaningful Use Diagnoses (Choose all that apply): CHF - CHF JESSY/ARB ordered at discharge?: Yes Documented LVEF (%): 45 Code Visit Inpatient E&M: 04853 Disch Hosp
--- NOTE | 2018-06-30 08:58 | CASEMGMT ---
Pt was discharged last pm and not provided with Eliquis script as discussed with hospitalist and unsure if pt has current script for same as he has not filled in months. Call to Suzie nurse at Dr. Moscoso's office and she is aware at this time and states will send script to [facility] for pt at this time. Call to pt for F/U phone call at this time and pt is aware of Eliquis script at this time and pt reminded about deductible, voices understanding. MATTHEW HERNANDEZ Discharge F/U Phone Call LACE: 10 Strata: 3 Discharge date: 06/29/18 Call date: 06/30/18 Call time: 0900 Duration: 4 minutes Admission dx: Sepsis Pt states has been 'feeling pretty good' since discharge last pm. Pt states no questions regarding discharge instructions or medications at this time. Pt states has f/u appt's and states plans to keep. Pt states no suggestions for [facility] at this time and states 'I was well taken care of.' Pt voices no further questions/concerns/needs at this time. Pt is aware to discuss Eliquis with July Quarles at visit on 07/14/18, voices understanding. [place] MATTHEW HERNANDEZ
== END 2018-06-29 18:08 | disposition home or self-care (01) | DRG 871 ==
LOC: ED 02:50 → PCU 05:55
PROVIDERS: Physician Assistant; Admitting Provider Hospitalist; Emergency Provider Emergency Medicine; Family Provider Family Medicine; PCP Family Medicine; Visit Provider Hospitalist
DX: A41.9 Sepsis, unspecified organism (principal); J96.01 Acute respiratory failure with hypoxia; J12.3 Human metapneumovirus pneumonia; I50.33 Acute on chronic diastolic (congestive) heart failure; I25.10 Atherosclerotic heart disease of native coronary artery without angina pectoris; E11.9 Type 2 diabetes mellitus without complications; G47.33 Obstructive sleep apnea (adult) (pediatric); I48.91 Unspecified atrial fibrillation; I11.0 Hypertensive heart disease with heart failure; D64.9 Anemia, unspecified; E78.5 Hyperlipidemia, unspecified; J98.01 Acute bronchospasm; I25.5 Ischemic cardiomyopathy; Z79.4 Long term (current) use of insulin; Z95.1 Presence of aortocoronary bypass graft; Z79.01 Long term (current) use of anticoagulants; E66.9 Obesity, unspecified; Z68.37 Body mass index [BMI] 37.0-37.9, adult
CPT/HCPCS: 36415; 71045; 71046; 80048; 82962; 83605; 83880; 84484; 85025; 87040; 87070; 87205; 87449; 87633; 87804; 93005; 93306; 94640; 94667; 94668; 94760; 97161; 97165; 97530; 99285; J7030; J7050; Q9957; A4216; C8929; J1940

== ENCOUNTER → 2018-07-07 09:13 | Outpatient (CLI) | payer MEDICARE, SELFPAY ==
[2018-06-27 06:00] VITALS: BMI 37.3
[2018-07-07 10:38] LABS: Hemoglobin A1c 6.8 % (4.2-6.3)
[2018-07-07 10:44] LABS: ALB/GLOB Ratio 1.4 RATIO (0.9-2.4); AST(SGOT) 18 U/L (15-37); Alanine Aminotransfer ALT/SGPT 29 U/L (16-61); Albumin, Serum 3.4 g/dL (3.2-5.0); Alkaline Phosphatase 71 U/L (45-117); Anion Gap 4 (5-15); BUN 38 mg/dL (7-18); BUN/Creat Ratio 33.3 RATIO (10-20); Calcium,Total 8.4 mg/dL (8.5-10.1); Chloride 104 mmol/L (98-107); Creatinine, Serum 1.14 mg/dL (0.70-1.30); EST Glomerular Filtration Rate 66 mL/min (>60); Est Glom Filt Rate - Afr Amer 80 mL/min (>60); Globulin 2.4 g/dL (2.2-4.2); Glucose 129 mg/dL (74-106); Protein, Total 5.8 g/dL (6.4-8.2); Sodium Level 139 mmol/L (136-145)
== END ==
PROVIDERS: Family Provider Family Medicine; PCP Family Medicine; Referring Provider Family Medicine; Visit Provider Family Medicine
DX: E11.22 Type 2 diabetes mellitus with diabetic chronic kidney disease (principal); N18.9 Chronic kidney disease, unspecified
CPT/HCPCS: 36415; 80053; 83036

== ENCOUNTER → 2018-07-27 | Outpatient (CLI) | payer MEDICARE, SELFPAY ==
[2018-07-14 10:37] VITALS: BMI 35.0
[2018-07-27 10:32] LABS: Cholesterol 126 mg/dL (200); High Density Lipoprotein 35 mg/dL; Triglycerides 112 mg/dL; Very Low Density Lipoprotein 22 mg/dL (5-40)
== END | disposition home or self-care (01) ==
PROVIDERS: Family Provider Family Medicine; PCP Family Medicine; Referring Provider Physician Assistant Medical; Visit Provider Physician Assistant Medical
DX: I25.10 Atherosclerotic heart disease of native coronary artery without angina pectoris (principal)
CPT/HCPCS: 36415; 80061

== ENCOUNTER → 2019-10-30 10:54 | Outpatient (CLI) | payer MEDICARE, SELFPAY ==
[2019-08-22 09:43] VITALS: BMI 36.8
[2019-10-30 12:18] LABS: Absolute Lymphocyte Count 1.05 X10^3/uL (0.83-4.51); Absolute Neutrophil Count 5.5 X10^3/uL (2.0-7.7); Basophil# 0.03 X10^3/uL; Basophil% 0.4 % (0-1); Eosinophils% 5.2 % (0-5); Hematocrit 39.5 % (40-54); Hemoglobin 12.5 g/dL (13.0-16.5); Lymphocyte # 1.05 X10^3/ul (4.0); Lymphocyte % 13.5 % (19-41); Mean Corp Hgb Conc 31.6 g/dL (32-36); Mean Corpuscular Hgb 29.3 pg (27.0-32.0); Mean Corpuscular Volume 92.7 fL (80-94); Mean Platelet Vol. 10.9 fl (6.2-12.0); Monocyte# 0.76 X10^3/uL; Monocyte% 9.8 % (0-10); NRBC Flagged by Analyzer 0 % (0-5); Platelet Count 172 K/mm3 (150-450); RBC Distribution Width CV 13.2 % (11.6-14.6); RBC Distribution Width SD 44.2 fl (35.1-43.9); Red Blood Count 4.26 M/mm3 (4.6-6.2); White Blood Count 7.8 K/mm3 (4.4-11.0)
[2019-10-30 13:01] LABS: ALB/GLOB Ratio 1.1 RATIO (0.9-2.4); AST(SGOT) 17 U/L (15-37); Alanine Aminotransfer ALT/SGPT 22 U/L (16-61); Albumin, Serum 3.5 g/dL (3.2-5.0); Alkaline Phosphatase 77 U/L (45-117); Anion Gap 4 (5-15); BUN 25 mg/dL (7-18); BUN/Creat Ratio 22.5 RATIO (10-20); Calcium,Total 8.6 mg/dL (8.5-10.1); Chloride 107 mmol/L (98-107); Cholesterol 122 mg/dL (200); Creatinine, Serum 1.11 mg/dL (0.70-1.30); EST Glomerular Filtration Rate 68 mL/min (>60); Est Glom Filt Rate - Afr Amer 83 mL/min (>60); Globulin 3.2 g/dL (2.2-4.2); Glucose 113 mg/dL (74-106); High Density Lipoprotein 31 mg/dL; Potassium 4.2 mmol/L (3.5-5.1); Protein, Total 6.7 g/dL (6.4-8.2); Sodium Level 140 mmol/L (136-145); Thyroid Stim Hormone (TSH) 1.55 uIU/mL (0.358-3.74); Triglycerides 96 mg/dL; Very Low Density Lipoprotein 19 mg/dL (5-40)
== END ==
PROVIDERS: PCP Family Medicine; Referring Provider Family Medicine; Visit Provider Family Medicine
DX: E11.22 Type 2 diabetes mellitus with diabetic chronic kidney disease (principal); N18.3 Chronic kidney disease, stage 3 (moderate)
CPT/HCPCS: 36415; 80053; 80061; 84443; 85025

== ENCOUNTER → 2020-02-13 10:12 | Outpatient (CLI) | payer MEDICARE, SELFPAY ==
[2019-08-22 09:43] VITALS: BMI 36.8
[2020-02-13 12:46] LABS: Hemoglobin A1c 6.1 % (3.8-5.6)
[2020-02-13 12:51] LABS: ALB/GLOB Ratio 1.1 RATIO (0.9-2.4); AST(SGOT) 17 U/L (15-37); Alanine Aminotransfer ALT/SGPT 21 U/L (16-61); Albumin, Serum 3.5 g/dL (3.2-5.0); Alkaline Phosphatase 65 U/L (45-117); Anion Gap 4 (5-15); BUN 23 mg/dL (7-18); BUN/Creat Ratio 18.9 RATIO (10-20); Calcium,Total 9.3 mg/dL (8.5-10.1); Chloride 112 mmol/L (98-107); Creatinine, Serum 1.22 mg/dL (0.70-1.30); EST Glomerular Filtration Rate 61 mL/min (>60); Est Glom Filt Rate - Afr Amer 74 mL/min (>60); Globulin 3.2 g/dL (2.2-4.2); Glucose 107 mg/dL (74-106); Potassium 4.4 mmol/L (3.5-5.1); Protein, Total 6.7 g/dL (6.4-8.2); Sodium Level 142 mmol/L (136-145)
== END ==
PROVIDERS: PCP Family Medicine; Referring Provider Family Medicine; Visit Provider Family Medicine
DX: E11.22 Type 2 diabetes mellitus with diabetic chronic kidney disease (principal); N18.30 Chronic kidney disease, stage 3 unspecified
CPT/HCPCS: 36415; 80053; 83036

== ENCOUNTER → 2020-05-26 11:50 | Outpatient (CLI) | payer MEDICARE, SELFPAY ==
[2020-04-29 08:56] VITALS: BMI 36.8
[2020-05-26 15:13] LABS: Absolute Lymphocyte Count 1.31 X10^3/uL (0.83-4.51); Absolute Neutrophil Count 4.9 X10^3/uL (2.0-7.7); Basophil# 0.05 X10^3/uL; Basophil% 0.7 % (0-1); Eosinophil# 0.33 X10^3/uL; Eosinophils% 4.5 % (0-5); Hematocrit 40.4 % (40-54); Hemoglobin 12.6 g/dL (13.0-16.5); Lymphocyte # 1.31 X10^3/ul (4.0); Lymphocyte % 17.8 % (19-41); Mean Corp Hgb Conc 31.2 g/dL (32-36); Mean Corpuscular Hgb 28.3 pg (27.0-32.0); Mean Corpuscular Volume 90.8 fL (80-94); Mean Platelet Vol. 11.3 fl (6.2-12.0); Monocyte# 0.69 X10^3/uL; Monocyte% 9.4 % (0-10); NRBC Flagged by Analyzer 0 % (0-5); Neutrophil # 4.94 X10^3/uL (2.7-7.7); Neutrophil % 67.3 % (47-70); Platelet Count 180 K/mm3 (150-450); RBC Distribution Width CV 13.8 % (11.6-14.6); Red Blood Count 4.45 M/mm3 (4.6-6.2); White Blood Count 7.3 K/mm3 (4.4-11.0)
[2020-05-26 15:31] LABS: ALB/GLOB Ratio 1.1 RATIO (0.9-2.4); AST(SGOT) 17 U/L (15-37); Alanine Aminotransfer ALT/SGPT 23 U/L (16-61); Albumin, Serum 3.5 g/dL (3.2-5.0); Alkaline Phosphatase 77 U/L (45-117); Anion Gap 4 (5-15); BUN 22 mg/dL (7-18); BUN/Creat Ratio 15.7 RATIO (10-20); Calcium,Total 9.1 mg/dL (8.5-10.1); Chloride 103 mmol/L (98-107); Cholesterol 120 mg/dL (200); EST Glomerular Filtration Rate 52 mL/min (>60); Est Glom Filt Rate - Afr Amer 63 mL/min (>60); Globulin 3.2 g/dL (2.2-4.2); Glucose 113 mg/dL (74-106); High Density Lipoprotein 41 mg/dL; Magnesium 1.6 mg/dL (1.6-2.6); Potassium 4.7 mmol/L (3.5-5.1); Protein, Total 6.7 g/dL (6.4-8.2); Sodium Level 139 mmol/L (136-145); Triglycerides 118 mg/dL; Very Low Density Lipoprotein 24 mg/dL (5-40)
[2020-05-26 15:33] LABS: Vitamin D,25 Hydroxy 105.8 ng/mL
== END ==
PROVIDERS: PCP Family Medicine; Referring Provider Family Medicine; Visit Provider Family Medicine
DX: I13.0 Hypertensive heart and chronic kidney disease with heart failure and stage 1 through stage 4 chronic kidney disease, or unspecified chronic kidney disease (principal); I50.40 Unspecified combined systolic (congestive) and diastolic (congestive) heart failure; I25.10 Atherosclerotic heart disease of native coronary artery without angina pectoris; E11.22 Type 2 diabetes mellitus with diabetic chronic kidney disease; N18.30 Chronic kidney disease, stage 3 unspecified
CPT/HCPCS: 36415; 80053; 80061; 82306; 83735; 85025

== ENCOUNTER → 2020-12-04 10:48 | Outpatient (CLI) | payer MEDICARE, SELFPAY ==
[2020-12-04 12:27] LABS: Anion Gap 6 (5-15); BUN 33 mg/dL (7-18); BUN/Creat Ratio 21.2 RATIO (10-20); Chloride 109 mmol/L (98-107); Cholesterol 119 mg/dL (200); Creatinine, Serum 1.56 mg/dL (0.70-1.30); EST Glomerular Filtration Rate 46 mL/min (>60); Est Glom Filt Rate - Afr Amer 56 mL/min (>60); Glucose 125 mg/dL (74-106); High Density Lipoprotein 33 mg/dL; Potassium 4.9 mmol/L (3.5-5.1); Sodium Level 141 mmol/L (136-145); Triglycerides 121 mg/dL; Very Low Density Lipoprotein 24 mg/dL (5-40)
[2020-12-04 12:51] LABS: Hemoglobin A1c 6.6 % (3.8-5.6)
== END ==
PROVIDERS: PCP Family Medicine; Referring Provider Family Medicine; Visit Provider Registered Nurse
DX: E11.22 Type 2 diabetes mellitus with diabetic chronic kidney disease (principal); N18.30 Chronic kidney disease, stage 3 unspecified
CPT/HCPCS: 36415; 80048; 80061; 83036

== ENCOUNTER 2021-07-10 09:44 | Outpatient (CLI) | payer MEDICARE, SELFPAY ==
[2021-07-10 12:18] LABS: Basophil# 0.02 X10^3/uL; Basophil% 0.2 % (0-1); Eosinophil# 0.15 X10^3/uL; Eosinophils% 1.5 % (0-5); Hematocrit 38.4 % (40-54); Hemoglobin 12.5 g/dL (13.0-16.5); Lymphocyte % 11.8 % (19-41); Mean Corp Hgb Conc 32.6 g/dL (32-36); Mean Corpuscular Hgb 28.9 pg (27.0-32.0); Mean Corpuscular Volume 88.9 fL (80-94); Mean Platelet Vol. 11.7 fl (6.2-12.0); Monocyte# 0.73 X10^3/uL; Monocyte% 7.2 % (0-10); NRBC Flagged by Analyzer 0 % (0-5); Neutrophil # 8.02 X10^3/uL (2.7-7.7); Neutrophil % 78.9 % (47-70); Platelet Count 148 K/mm3 (150-450); RBC Distribution Width CV 13.9 % (11.6-14.6); RBC Distribution Width SD 45.1 fl (35.1-43.9); Red Blood Count 4.32 M/mm3 (4.6-6.2); White Blood Count 10.2 K/mm3 (4.4-11.0)
[2021-07-10 12:39] LABS: Hemoglobin A1c 6.6 % (3.8-5.6)
[2021-07-10 12:42] LABS: Microalbumin,Random Urine 26.5 mg/L (NO RANGE EST.); Microalbumin:Creatinine Ratio 23.2 mg/g CRE (<30 mg/g CRE)
[2021-07-10 12:56] LABS: ALB/GLOB Ratio 1.5 RATIO (0.9-2.4); AST(SGOT) 19 U/L (15-37); Alanine Aminotransfer ALT/SGPT 23 U/L (16-61); Albumin, Serum 3.8 g/dL (3.2-5.0); Alkaline Phosphatase 61 U/L (45-117); Anion Gap 6 (5-15); BUN 21 mg/dL (7-18); BUN/Creat Ratio 18.4 RATIO (10-20); Calcium,Total 8.5 mg/dL (8.5-10.1); Chloride 106 mmol/L (98-107); Creatinine, Serum 1.14 mg/dL (0.70-1.30); EST Glomerular Filtration Rate 66 mL/min (>60); Est Glom Filt Rate - Afr Amer 80 mL/min (>60); Globulin 2.5 g/dL (2.2-4.2); Glucose 125 mg/dL (74-106); Potassium 4.4 mmol/L (3.5-5.1); Protein, Total 6.3 g/dL (6.4-8.2); Sodium Level 141 mmol/L (136-145)
== END 2021-07-10 23:59 | disposition home or self-care (01) ==
LOC: MFPLAB 09:45
PROVIDERS: PCP Family Medicine; Referring Provider Family Medicine; Visit Provider Family Medicine
DX: E11.22 Type 2 diabetes mellitus with diabetic chronic kidney disease (principal); I48.91 Unspecified atrial fibrillation; N18.30 Chronic kidney disease, stage 3 unspecified; I12.9 Hypertensive chronic kidney disease with stage 1 through stage 4 chronic kidney disease, or unspecified chronic kidney disease; G47.30 Sleep apnea, unspecified
CPT/HCPCS: 36415; 80053; 82043; 82570; 83036; 85025

== ENCOUNTER → 2021-12-08 | Outpatient (CLI) | payer MEDICARE, SELFPAY ==
--- NOTE | 2021-12-08 18:56 | STRESSREP ---
Stress Test Report Pharmacologic myocardial perfusion stress test. 81-year-old man with a history of atrial fibrillation. Stress protocol: Resting EKG demonstrates atrial fibrillation with a rate of 88 bpm frequent premature ventricular complexes noted.0.4 mg of regadenoson was infused per usual protocol followed by rapid intravenous saline flush injection. Patient maintained atrial fibrillation throughout the recording. The maximum workload was 1 metabolic equivalent. At rest there were no ST or T wave changes noted to suggest abnormal flow reserve and at peak infusion nonspecific ST changes were noted we did not meet the criteria for ischemia. The final blood pressure was 180/90 mmHg. Myocardial perfusion protocol. 11.2 mCi of technetium 99m sestamibi was injected at rest. 0.4 mg of regadenoson was infused per usual protocol. At peak infusion 33.0 mCi of technetium 99m sestamibi was injected stress images were reconstructed in comparing the short axis vertical long and horizontal long axis. Gated images were also obtained. Perfusion SPECT analysis: Review of the stress images demonstrate a mildly dilated cardiac silhouette size. There was normal perfusion noted in all areas of the myocardium. The resting images similarly demonstrated normal uptake of tracer noted in all areas of the myocardium. No ischemia was noted. Gated SPECT analysis: The gated ejection fraction is 41%. Conclusion: Normal pharmacologic myocardial perfusion stress test. Atrial fibrillation noted. Mildly reduced left ventricular systolic function.
== END | disposition home or self-care (01) ==
PROVIDERS: PCP Family Medicine; Referring Provider Physician Assistant Medical; Visit Provider Physician Assistant Medical
DX: I25.10 Atherosclerotic heart disease of native coronary artery without angina pectoris (principal)
CPT/HCPCS: 78452; 93017; A9500; A4216; J2785

== ENCOUNTER → 2022-03-15 | Outpatient (CLI) | payer MEDICARE, SELFPAY ==
[2022-03-15 13:30] LABS: PSA,Total - Annual Screen 1.03 ng/mL (0.00-4.00)
== END | disposition home or self-care (01) ==
LOC: MFPLAB 11:09
PROVIDERS: Nurse Practitioner Family; PCP Family Medicine; Visit Provider Family Medicine
DX: Z12.5 Encounter for screening for malignant neoplasm of prostate (principal)
CPT/HCPCS: 36415; 84153; G0103

== ENCOUNTER → 2022-05-06 | Outpatient (CLI) | payer MEDICARE, SELFPAY ==
[2022-05-06 12:24] LABS: Absolute Lymphocyte Count 1.03 X10^3/uL (0.83-4.51); Absolute Neutrophil Count 4.9 X10^3/uL (2.0-7.7); Basophil# 0.04 X10^3/uL; Basophil% 0.6 % (0-1); Eosinophil# 0.13 X10^3/uL; Eosinophils% 1.9 % (0-5); Hematocrit 40.5 % (40-54); Hemoglobin 12.5 g/dL (13.0-16.5); Lymphocyte # 1.03 X10^3/ul (0.83-4.51); Lymphocyte % 15.4 % (19-41); Mean Corp Hgb Conc 30.9 g/dL (32-36); Mean Corpuscular Hgb 28.5 pg (27.0-32.0); Mean Corpuscular Volume 92.5 fL (80-94); Mean Platelet Vol. 11.1 fl (6.2-12.0); Monocyte# 0.55 X10^3/uL; Monocyte% 8.2 % (0-10); NRBC Flagged by Analyzer 0 % (0-5); Neutrophil # 4.93 X10^3/uL (2.7-7.7); Neutrophil % 73.6 % (47-70); Platelet Count 170 K/mm3 (150-450); RBC Distribution Width CV 13.5 % (11.6-14.6); RBC Distribution Width SD 46.1 fl (35.1-43.9); Red Blood Count 4.38 M/mm3 (4.6-6.2); White Blood Count 6.7 K/mm3 (4.4-11.0)
[2022-05-06 13:01] LABS: ALB/GLOB Ratio 1.2 RATIO (0.9-2.4); AST(SGOT) 17 U/L (15-37); Alanine Aminotransfer ALT/SGPT 13 U/L (16-61); Albumin, Serum 3.6 g/dL (3.2-5.0); Alkaline Phosphatase 73 U/L (45-117); Anion Gap 5 (5-15); BUN 20 mg/dL (7-18); BUN/Creat Ratio 15.5 RATIO (10-20); Calcium,Total 8.8 mg/dL (8.5-10.1); Chloride 105 mmol/L (98-107); Creatinine, Serum 1.29 mg/dL (0.70-1.30); EST Glomerular Filtration Rate 57 mL/min (>60); Est Glom Filt Rate - Afr Amer 69 mL/min (>60); Ferritin 46 ng/mL (26-388); Globulin 3.1 g/dL (2.2-4.2); Glucose 114 mg/dL (74-106); Potassium 4.1 mmol/L (3.5-5.1); Protein, Total 6.7 g/dL (6.4-8.2); Sodium Level 143 mmol/L (136-145)
[2022-05-06 14:39] LABS: Vitamin B12 > 2000 pg/mL (211-911); Vitamin D,25 Hydroxy 140.5 ng/mL
[2022-05-06 15:21] LABS: Microalbumin,Random Urine 43.1 mg/L (NO RANGE EST.); Microalbumin:Creatinine Ratio 35.3 mg/g CRE (<30 mg/g CRE)
== END | disposition home or self-care (01) ==
LOC: MFPLAB 11:21
PROVIDERS: PCP Family Medicine; Referring Provider Family Medicine; Visit Provider Family Medicine
DX: E11.22 Type 2 diabetes mellitus with diabetic chronic kidney disease (principal); D64.9 Anemia, unspecified
CPT/HCPCS: 36415; 80053; 82043; 82306; 82570; 82607; 82728; 82746; 85025

== ENCOUNTER → 2022-11-02 | Outpatient (CLI) | payer MEDICARE, SELFPAY ==
[2022-11-02 12:11] LABS: Absolute Lymphocyte Count 0.94 X10^3/uL (0.83-4.51); Absolute Neutrophil Count 4.1 X10^3/uL (2.0-7.7); Basophil# 0.05 X10^3/uL; Basophil% 0.9 % (0-1); Eosinophil# 0.22 X10^3/uL; Eosinophils% 3.8 % (0-5); Hematocrit 41.8 % (40-54); Hemoglobin 13.2 g/dL (13.0-16.5); Lymphocyte # 0.94 X10^3/ul (0.83-4.51); Lymphocyte % 16.2 % (19-41); Mean Corp Hgb Conc 31.6 g/dL (32-36); Mean Corpuscular Volume 91.9 fL (80-94); Mean Platelet Vol. 11.4 fl (6.2-12.0); Monocyte% 8.6 % (0-10); NRBC Flagged by Analyzer 0 % (0-5); Neutrophil # 4.07 X10^3/uL (2.7-7.7); Platelet Count 201 K/mm3 (150-450); RBC Distribution Width CV 13.3 % (11.6-14.6); RBC Distribution Width SD 44.8 fl (35.1-43.9); Red Blood Count 4.55 M/mm3 (4.6-6.2); White Blood Count 5.8 K/mm3 (4.4-11.0)
[2022-11-02 12:21] LABS: Vitamin D,25 Hydroxy 114.7 ng/mL
[2022-11-02 12:31] LABS: AST(SGOT) 17 U/L (15-37); Alanine Aminotransfer ALT/SGPT 16 U/L (16-61); Albumin, Serum 3.6 g/dL (3.2-5.0); Alkaline Phosphatase 82 U/L (45-117); Anion Gap 4 (5-15); BUN 22 mg/dL (7-18); BUN/Creat Ratio 17.1 RATIO (10-20); Calcium,Total 8.9 mg/dL (8.5-10.1); Chloride 109 mmol/L (98-107); Cholesterol 98 mg/dL (200); Creatinine, Serum 1.29 mg/dL (0.70-1.30); EST Glomerular Filtration Rate 57 mL/min (>60); Est Glom Filt Rate - Afr Amer 69 mL/min (>60); Globulin 3.6 g/dL (2.2-4.2); Glucose 114 mg/dL (74-106); High Density Lipoprotein 36 mg/dL; Potassium 4.9 mmol/L (3.5-5.1); Protein, Total 7.2 g/dL (6.4-8.2); Sodium Level 139 mmol/L (136-145); Triglycerides 87 mg/dL; Very Low Density Lipoprotein 17 mg/dL (5-40)
== END | disposition home or self-care (01) ==
LOC: MFPLAB 09:49
PROVIDERS: PCP Family Medicine; Visit Provider Family Medicine
DX: E66.01 Morbid (severe) obesity due to excess calories (principal); E11.22 Type 2 diabetes mellitus with diabetic chronic kidney disease; N18.30 Chronic kidney disease, stage 3 unspecified; T45.2X1A Poisoning by vitamins, accidental (unintentional), initial encounter; Z68.35 Body mass index [BMI] 35.0-35.9, adult
CPT/HCPCS: 36415; 80053; 80061; 82306; 85025

== ENCOUNTER → 2023-06-06 | Outpatient (CLI) | payer MEDICARE, SELFPAY ==
--- OUTSIDE RECORDS SUMMARY | 2023-06-06 11:41 | XMS RPT_ITS | CCD ---
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 Role Phone Ztia Johnson Unavailable Unavailable Krysten Jimenez Unavailable Zita Johnson Unavailable Unavailable Medications Completed/Discontinued Medications Medication Drug Class(es) Dates Sig (Normalized) Sig (Original) aspirin 81 mg oral tablet (6 sources) Nonsteroidal Anti-inflammatory Drug Start: 06-23-2010 take 1 tablet by mouth once daily ASPIRIN 81 MG TABS One tablet by mouth daily ASPIRIN [id number] Zita Johnson Problems Active Problems Problem Classification Problem Date Documented Date Episodic/Chronic Cardiac dysrhythmias (3 sources) Ventricular premature beats; Translations: [Ventricular premature depolarization] Onset: 12-27-2012 12-27-2012 Chronic Coronary atherosclerosis and other heart disease (12 sources) Atherosclerotic heart disease of eagle coronary artery without angina pectoris; Translations: [Coronary arteriosclerosis] Onset: 06-23-2010 09-25-2015 Chronic Diabetes mellitus with complications (3 sources) 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; Translations: [Type 2 diabetes mellitus with diabetic peripheral angiopathy without gangrene] Onset: 06-23-2010 06-23-2010 Chronic Disorders of lipid metabolism (3 sources) Hyperlipidemia; Translations: [Hyperlipidemia, unspecified] Onset: 06-23-2010 06-23-2010 Chronic Essential hypertension (3 sources) Hypertensive disorder; Translations: [Essential (primary) hypertension] Onset: 03-24-2016 03-24-2016 Chronic Other nutritional; endocrine; and metabolic disorders (5 sources) Body mass index (BMI) 37.0-37.9, adult; Translations: [Body mass index (BMI) 36.0-36.9, adult] Onset: 02-27-2014 03-14-2015 Chronic Other nutritional; endocrine; and metabolic disorders (1 source) Body mass index (BMI) 36.0-36.9, adult; Translations: [Body mass index (BMI) 36.0-36.9, adult] Onset: 02-27-2014 02-27-2014 Chronic Unclassified (3 sources) Obstructive sleep apnea syndrome; Translations: [Obstructive sleep apnea (adult) (pediatric)] Onset: 06-18-2016 06-18-2016 Chronic Unclassified (1 source) Long-term drug therapy; Translations: [Other director long term care (current) drug therapy] Onset: 06-23-2010 06-23-2010 Past or Other Problems Problem Classification Problem Date Documented Da te Episodic/Chronic Coronary atherosclerosis and other heart disease (3 sources) Presence of aortocoronary bypass graft; Translations: [Presence of aortocoronary bypass graft] Onset: 06-23-2010 06-23-2010 Episodic Other aftercare (2 sources) Other half-way (current) drug therapy; Translations: [Other director long term care (current) drug therapy] Onset: 06-23-2010 06-23-2010 Episodic Residual codes; unclassified (1 source) Family history of stroke; Translations: [Family history of stroke] 02-27-2014 Episodic Unclassified (5 sources) FH: Hypertension; Translations: [Family history of stroke] 02-27-2014 Episodic Results Test Name Value Interpretation Reference Range Facil it Vital Signs Date Time Vital Sign Value Performing Clinician Facility 12-21-2016 11:39-0400 BMI (Body Mass Index) 36.26 kg/m2 [facility] Work Phone: 12-21-2016 11:39-0400 BP Diastolic 60 mm[Hg] [facility] Work Phone: 12-21-2016 11:39-0400 BP Systolic 140 mm[Hg] [facility] Work Phone: 12-21-2016 11:39-0400 Height 167.64 cm [facility] Work Phone: 12-21-2016 11:39-0400 Pulse (Heart Rate) 56 /min [facility] Work Phone: 12-21-2016 11:39-0400 Respiratory Rate 20 /min Zita Johnson [facility] Work Phone: 12-21-2016 11:39-0400 Weight 101.92 kg Zita Johnson [facility] Work Phone: 06-22-2016 11:49-0400 BMI (Body Mass Index) 34.86 kg/m2 [facility] Work Phone: 06-22-2016 11:49-0400 BP Diastolic 56 mm[Hg] Krystenzeyad Jimenez [facility] [employer] [facility] Work Phone: 06-22-2016 11:49-0400 BP Systolic 90 mm[Hg] [facility]eyad Jimenez [facility] Work Phone: 06-22-2016 11:49-0400 Height 167.64 cm [facility] Work Phone: 06-22-2016 11:49-0400 Pulse (Heart Rate) 60 /min [facility]rysten Jimenez [facility] Work Phone: 06-22-2016 11:49-0400 Respiratory Rate 20 /min Krystenzeyad Jimenez [facility] Work Phone: 06-22-2016 11:49-0400 Weight 97.98 kg Krystenzeyad Jimenez [facility] Work Phone: 03-24-2016 11:42-0500 BSA (Body Surface Area) 2.06 m2 [facility] Work Phone: 03-14-2015 13:01-0500 Heart rate 49 /min Zita Elizabeth [facility] Work Phone: 08-24-2013 14:19-0400 Pulse Oximetry 99 % Krystenzeyad Jimenez [facility] [employer] [facility] Work Phone: 12-27-2012 14:08-0400 Heart rate 380 ms Zita Elizabeth [facility] Work Phone: Procedures Date Procedure Procedure Detail Performing Clinician Start: 06-22-2016 End: 06-22-2016 Follow Up Appt 6 months Irma Rojas Start: 06-22-2016 End: 06-22-2016 EPIFANIO Moscoso MD Start: 06-22-2016 End: 06-22-2016 Follow Up Appt 6 months Irma Rojas Start: 06-22-2016 End: 06-22-2016 EPIFANIO Moscoso MD Start: 03-24-2016 End: 03-24-2016 DAVY Quarles PA-C Work Phone: Start: 03-24-2016 End: 03-24-2016 Follow Up Appt 3 months July craven PA-C Work Phone: Start: 03-24-2016 End: 03-24-2016 Dietary management education, guidance, and counseling Zita Johnson Start: 03-24-2016 End: 03-24-2016 DAVY Quarles PA-C Work Phone: Start: 03-24-2016 End: 03-24-2016 Follow Up Appt 3 months July craven PA-C Work Phone: Start: 09-25-2015 End: 03-11-2016 Follow Up Appt 6 months Irma Rojas Start: 09-25-2015 End: 03-11-2016 EPIFANIO Moscoso MD Start: 09-25-2015 End: 03-11-2016 Follow Up Appt 6 months Irma Rojas Start: 09-25-2015 End: 03-11-2016 EPIFANIO Moscoso MD Start: 09-10-2015 End: 03-11-2016 *Hepatic Function Panel July craven PA-C Work Phone: Start: 09-10-2015 End: 03-11-2016 Lipid 1996 panel - Serum or Plasma July Quarles PA-C Work Phone: Start: 09-10-2015 End: 03-11-2016 *Hepatic Function Panel July craven PA-C Work Phone: Start: 09-10-2015 End: 03-11-2016 Lipid panel [AGGREGATE] July craven PA-C Work Phone: Start: 03-14-2015 End: 03-14-2015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 July Quarles PA-C Work Phone: Start: 03-14-2015 End: 03-14-2015 Ecg routine ecg w/least 12 lds w/i&r July Quarles PA-C Work Phone: Start: 03-14-2015 End: 03-14-2015 Follow Up Appt 6 months July craven PA-C Work Phone: Start: 03-14-2015 End: 03-14-2015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 July Quarles PA-C Work Phone: Start: 03-14-2015 End: 03-14-2015 Electrocardiogram, complete July Quarles PA-C Work Phone: Start: 03-14-2015 End: 03-14-2015 Follow Up Appt 6 months July craven PA-C Work Phone: Start: 03-11-2015 End: 03-11-2015 *Hepatic Function Panel Irma Rojas Start: 03-11-2015 End: 03-11-2015 Lipid 1996 panel - Serum or Plasma Luciano Moscoso MD Start: 03-11-2015 End: 03-11-2015 *Hepatic Function Panel Irma Rojas Start: 03-11-2015 End: 03-11-2015 Lipid panel [AGGREGATE] Irma Rojas Start: 09-12-2014 End: 03-05-2015 Chest x-ray Luciano Moscoso MD Start: 09-12-2014 End: 09-12-2014 Follow Up Appt 6 months Irma Rojas Start: 09-12-2014 End: 09-12-2014 MMM Luciano Moscoso MD Start: 09-12-2014 End: 03-05-2015 Chest x-ray Luciano Moscoso MD Start: 09-12-2014 End: 09-12-2014 Follow Up Appt 6 months Irma Rojas Start: 09-12-2014 End: 09-12-2014 MMM Luciano Moscoso MD Start: 09-02-2014 End: 09-09-2014 *Hepatic Function Panel Irma Rojas Start: 09-02-2014 End: 09-09-2014 Lipid 1996 panel - Serum or Plasma Luciano Moscoso MD Start: 09-02-2014 End: 09-09-2014 *Hepatic Function Panel Irma Rojas Start: 09-02-2014 End: 09-09-2014 Lipid panel [AGGREGATE] Irma Rojas Start: 03-13-2014 End: 03-13-2014 Ecg routine ecg w/least 12 lds w/i&r July Quarles PA-C Work Phone: Start: 03-13-2014 End: 03-13-2014 Electrocardiogram, complete July Quarles PA-C Work Phone: Start: 02-27-2014 End: 03-07-2014 *Hepatic Function Panel July craven PA-C Work Phone: Start: 02-27-2014 End: 03-05-2015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 July Quarles PA-C Work Phone: Start: 02-27-2014 End: 03-13-2014 Ecg routine ecg w/least 12 lds w/i&r July Quarles PA-C Work Phone: Start: 02-27-2014 End: 03-05-2015 Follow Up Appt 6 months July craven PA-C Work Phone: Start: 02-27-2014 End: 03-07-2014 Lipid 1996 panel - Serum or Plasma July Quarles PA-C Work Phone: Start: 02-27-2014 End: 03-07-2014 *Hepatic Function Panel July craven PA-C Work Phone: Start: 02-27-2014 End: 03-05-2015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 July Quarles PA-C Work Phone: Start: 02-27-2014 End: 03-13-2014 Electrocardiogram, complete July Quarles PA-C Work Phone: Start: 02-27-2014 End: 03-05-2015 Follow Up Appt 6 months July craven PA-C Work Phone: Start: 02-27-2014 End: 03-07-2014 Lipid panel [AGGREGATE] July craven PA-C Work Phone: Start: 08-24-2013 End: 08-24-2013 Follow Up Appt 6 months Irma Rojas Start: 08-24-2013 End: 08-24-2013 [facility] Luciano Moscoso MD Start: 08-24-2013 End: 09-03-2013 Nuclear stress test -adenosine Luciano Moscoso MD Start: 08-24-2013 End: 08-24-2013 Follow Up Appt 6 months Irma Rojas Start: 08-24-2013 End: 08-24-2013 MMM Luciano Moscoso MD Start: 08-24-2013 End: 09-03-2013 Nuclear stress test -adenosine Luciano Moscoso MD Start: 04-04-2013 End: 04-09-2013 *Hepatic Function Panel Irma Rojas Start: 04-04-2013 End: 04-09-2013 Lipid 1996 panel - Serum or Plasma Luciano Moscoso MD Start: 04-04-2013 End: 04-09-2013 *Hepatic Function Panel Irma Rojas Start: 04-04-2013 End: 04-09-2013 Lipid panel [AGGREGATE] Irma Rojas Start: 12-27-2012 End: 04-09-2013 24 hour holter monitor July king PA-C Work Phone: Start: 12-27-2012 End: 12-27-2012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 July Quarles PA-C Work Phone: Start: 12-27-2012 End: 12-27-2012 Ecg routine ecg w/least 12 lds w/i&r July Quarles PA-C Work Phone: Start: 12-27-2012 End: 04-09-2013 24 hour holter monitor July king PA-C Work Phone: Start: 12-27-2012 End: 12-27-2012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 July Quarles PA-C Work Phone: Start: 12-27-2012 End: 12-27-2012 Follow Up Appt 6 months July craven PA-C Work Phone: Start: 12-27-2012 End: 12-27-2012 Lipid panel [AGGREGATE] July craven PA-C Work Phone: Start: 06-23-2012 End: 06-23-2012 Ecg routine ecg w/least 12 lds w/i&r Luciano Moscoso MD Start: 06-23-2012 End: 06-23-2012 MMM Luciano Moscoso MD Start: 06-23-2012 End: 06-23-2012 Electrocardiogram, complete Luciano Moscoso MD Start: 06-23-2012 End: 06-23-2012 Follow Up Appt 6 months Irma Rojas Start: 06-23-2012 End: 06-23-2012 MMM Luciano Moscoso MD Start: 06-02-2012 End: 10-04-2012 *Hepatic Function Panel Irma Rojas Start: 06-02-2012 End: 10-04-2012 Lipid 1996 panel - Serum or Plasma Luciano Moscoso MD Start: 06-02-2012 End: 10-04-2012 *Hepatic Function Panel Irma Rojas Start: 06-02-2012 End: 10-04-2012 Lipid panel [AGGREGATE] Irma Rojas Start: 12-27-2011 End: 10-04-2012 *Hepatic Function Panel Irma Rojas Start: 12-27-2011 End: 10-04-2012 Lipid 1996 panel - Serum or Plasma Luciano Moscoso MD Start: 12-27-2011 End: 10-04-2012 *Hepatic Function Panel Irma Rojas Start: 12-27-2011 End: 10-04-2012 Lipid panel [AGGREGATE] Irma Rojas Start: 11-03-2011 End: 11-03-2011 Follow Up Appt 6 months Irma Rojas Start: 11-03-2011 End: 11-03-2011 Follow Up Appt 6 months Irma Rojas Start: 08-03-2011 End: 12-29-2011 *Hepatic Function Panel Irma Rojas Start: 08-03-2011 End: 12-29-2011 Lipid 1996 panel - Serum or Plasma Luciano Moscoso MD Start: 08-03-2011 End: 12-29-2011 *Hepatic Function Panel Irma Rojas Start: 08-03-2011 End: 12-29-2011 Lipid panel [AGGREGATE] Irma Rojas Start: 02-24-2011 End: 02-24-2011 Follow Up Appt 6 months Irma Rojas Start: 02-24-2011 End: 02-24-2011 Follow Up Appt 6 months Irma Rojas Plan of Treatment Date Care Activity Detail Author Start: 06-23-2017 End: 06-23-2017 Appointment Appointment [facility] Work Phone: Start: 12-21-2016 End: 12-21-2016 Follow Up Appt 6 months Follow Up Appt 6 months [facility] Work Phone: Start: 12-21-2016 End: 12-21-2016 MMM MMM [facility] Work Phone: Start: 12-21-2016 End: 12-21-2016 Appointment Appointment [place] [employer] [facility] Work Phone: Start: 12-21-2016 End: 12-21-2016 Follow Up Appt 6 months Follow Up Appt 6 months [facility] Work Phone: Start: 12-21-2016 End: 12-21-2016 [facility] Work Phone: Start: 06-22-2016 End: 06-22-2016 Follow Up Appt 6 months Follow Up Appt 6 months [facility] Work Phone: Start: 06-22-2016 End: 06-22-2016 [facility] MM [facility] Work Phone: Start: 06-22-2016 End: 06-22-2016 Follow Up Appt 6 months Follow Up Appt 6 months [place] [facility] Work Phone: Start: 06-22-2016 End: 06-22-2016 [facility] [place] [facility] [facility] Work Phone: Start: 03-24-2016 End: 03-24-2016 [facility]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 [facility] Work Phone: Start: 03-24-2016 End: 03-24-2016 Follow Up Appt 3 months Follow Up Appt 3 months [facility] Work Phone: Start: 03-24-2016 End: 03-24-2016 [place] [facility] Work Phone: Start: 03-24-2016 End: 03-24-2016 Follow Up Appt 3 months Follow Up Appt 3 months [place] [facility] Work Phone: Start: 09-25-2015 End: 03-11-2016 Follow Up Appt 6 months Follow Up Appt 6 months [facility] Work Phone: Start: 09-25-2015 End: 03-11-2016 MM MM [facility] Work Phone: Start: 09-25-2015 End: 03-11-2016 Follow Up Appt 6 months Follow Up Appt 6 months [place] [facility] Work Phone: Start: 09-25-2015 End: 03-11-2016 MMM MMM [place] [facility] Work Phone: Start: 09-10-2015 End: 03-11-2016 *Hepatic Function Panel *Hepatic Function Panel [facility] Work Phone: Start: 09-10-2015 End: 03-11-2016 Lipid 1996 panel *Lipid Profile CC PCP [facility] Work Phone: Start: 09-10-2015 End: 03-11-2016 *Hepatic Function Panel *Hepatic Function Panel [employer] [facility] Work Phone: Start: 09-10-2015 End: 03-11-2016 Lipid panel [AGGREGATE] *Lipid Profile CC PCP [place] [facility] Work Phone: Start: 03-14-2015 End: 03-14-2015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 Work Phone: Start: 03-14-2015 End: 03-14-2015 Ecg routine ecg w/least 12 lds w/i&r EKG (In office) [facility] Work Phone: Start: 03-14-2015 End: 03-14-2015 Follow Up Appt 6 months Follow Up Appt 6 months [facility] Work Phone: Start: 03-14-2015 End: 03-14-2015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 Work Phone: Start: 03-14-2015 End: 03-14-2015 Electrocardiogram, complete EKG (In office) [employer] [facility] Work Phone: Start: 03-14-2015 End: 03-14-2015 Follow Up Appt 6 months Follow Up Appt 6 months [employer] [facility] Work Phone: Start: 03-11-2015 End: 03-11-2015 *Hepatic Function Panel *Hepatic Function Panel [facility] Work Phone: Start: 03-11-2015 End: 03-11-2015 Lipid 1996 panel *Lipid Profile CC PCP [facility] Work Phone: Start: 03-11-2015 End: 03-11-2015 *Hepatic Function Panel *Hepatic Function Panel [place] [facility] Work Phone: Start: 03-11-2015 End: 03-11-2015 Lipid panel [AGGREGATE] *Lipid Profile CC PCP [place] [facility] Work Phone: Start: 09-12-2014 End: 03-05-2015 Chest x-ray X-Ray, Chest, PA & Lateral [facility] Work Phone: Start: 09-12-2014 End: 09-12-2014 Follow Up Appt 6 months Follow Up Appt 6 months [facility] Work Phone: Start: 09-12-2014 End: 09-12-2014 MMM MM [facility] Work Phone: Start: 09-12-2014 End: 03-05-2015 Chest x-ray X-Ray, Chest, PA & Lateral [place] [facility] Work Phone: Start: 09-12-2014 End: 09-12-2014 Follow Up Appt 6 months Follow Up Appt 6 months [place] [facility] Work Phone: Start: 09-12-2014 End: 09-12-2014 MMM [facility] [employer] [facility] Work Phone: Start: 09-02-2014 End: 09-09-2014 *Hepatic Function Panel *Hepatic Function Panel [facility] Work Phone: Start: 09-02-2014 End: 09-09-2014 Lipid 1996 panel *Lipid Profile CC PCP [facility] Work Phone: Start: 09-02-2014 End: 09-09-2014 *Hepatic Function Panel *Hepatic Function Panel [place] [facility] Work Phone: Start: 09-02-2014 End: 09-09-2014 Lipid panel [AGGREGATE] *Lipid Profile CC PCP [place] [facility] Work Phone: Start: 03-13-2014 End: 03-13-2014 Ecg routine ecg w/least 12 lds w/i&r EKG (In office) [facility] Work Phone: Start: 03-13-2014 End: 03-13-2014 Electrocardiogram, complete EKG (In office) [employer] Work Phone: Start: 02-27-2014 End: 03-07-2014 *Hepatic Function Panel *Hepatic Function Panel [facility] Work Phone: Start: 02-27-2014 End: 03-05-2015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 [facility] Work Phone: Start: 02-27-2014 End: 03-13-2014 Ecg routine ecg w/least 12 lds w/i&r EKG (In office) [facility] Work Phone: Start: 02-27-2014 End: 03-05-2015 Follow Up Appt 6 months Follow Up Appt 6 months [facility] Work Phone: Start: 02-27-2014 End: 03-07-2014 Lipid 1996 panel *Lipid Profile CC PCP [facility] Work Phone: Start: 02-27-2014 End: 03-07-2014 *Hepatic Function Panel *Hepatic Function Panel [employer] Work Phone: Start: 02-27-2014 End: 03-05-2015 [facility] [employer] [facility] Work Phone: Start: 02-27-2014 End: 03-13-2014 Electrocardiogram, complete EKG (In office) [employer] [facility] Work Phone: Start: 02-27-2014 End: 03-05-2015 Follow Up Appt 6 months Follow Up Appt 6 months [employer] Work Phone: Start: 02-27-2014 End: 03-07-2014 Lipid panel [AGGREGATE] *Lipid Profile CC PCP [employer] [facility] Work Phone: Start: 08-24-2013 End: 08-24-2013 Follow Up Appt 6 months Follow Up Appt 6 months [facility] Work Phone: Start: 08-24-2013 End: 08-24-2013 [facility] Work Phone: Start: 08-24-2013 End: 08-24-2013 Nuclear stress test -adenosine Nuclear stress test -adenosine [facility] Work Phone: Start: 08-24-2013 End: 08-24-2013 Follow Up Appt 6 months Follow Up Appt 6 months [place] [employer] [facility] Work Phone: Start: 08-24-2013 End: 08-24-2013 [facility] [employer] [facility] Work Phone: Start: 08-24-2013 End: 08-24-2013 Nuclear stress test -adenosine Nuclear stress test -adenosine [employer] [facility] Work Phone: Start: 04-04-2013 End: 04-09-2013 *Hepatic Function Panel *Hepatic Function Panel [facility] Work Phone: Start: 04-04-2013 End: 04-09-2013 Lipid 1996 panel *Lipid Profile CC PCP [facility] Work Phone: Start: 04-04-2013 End: 04-09-2013 *Hepatic Function Panel *Hepatic Function Panel [employer] [facility] Work Phone: Start: 04-04-2013 End: 04-09-2013 Lipid panel [AGGREGATE] *Lipid Profile CC PCP [place] [facility] Work Phone: Start: 12-27-2012 End: 12-27-2012 24 hour holter monitor 24 hour holter monitor [facility] Work Phone: Start: 12-27-2012 End: 12-27-2012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 [facility] Work Phone: Start: 12-27-2012 End: 12-27-2012 Ecg routine ecg w/least 12 lds w/i&r EKG (In office) [facility] Work Phone: Start: 12-27-2012 End: 12-27-2012 Follow Up Appt 6 months Follow Up Appt 6 months [facility] Work Phone: Start: 12-27-2012 End: 12-27-2012 24 hour holter monitor 24 hour holter monitor [place] [employer] [facility] Work Phone: Start: 12-27-2012 End: 12-27-2012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 [employer] [facility] Work Phone: Start: 12-27-2012 End: 12-27-2012 Electrocardiogram, complete EKG (In office) [place] [employer] [facility] Work Phone: Start: 12-27-2012 End: 12-27-2012 Follow Up Appt 6 months Follow Up Appt 6 months [place] [employer] [facility] Work Phone: Start: 06-23-2012 End: 06-23-2012 Ecg routine ecg w/least 12 lds w/i&r EKG (In office) [facility] Work Phone: Start: 06-23-2012 End: 06-23-2012 Follow Up Appt 6 months Follow Up Appt 6 months [facility] Work Phone: Start: 06-23-2012 End: 06-23-2012 MMM [employer] [facility] Work Phone: Start: 06-23-2012 End: 06-23-2012 Electrocardiogram, complete EKG (In office) [place] [facility] Work Phone: Start: 06-23-2012 End: 06-23-2012 Follow Up Appt 6 months Follow Up Appt 6 months [place] [employer] [facility] Work Phone: Start: 06-23-2012 End: 06-23-2012 M[facility] [employer] [facility] Work Phone: Start: 06-02-2012 End: 10-04-2012 *Hepatic Function Panel *Hepatic Function Panel [facility] Work Phone: Start: 06-02-2012 End: 10-04-2012 Lipid 1996 panel *Lipid Profile [facility] Work Phone: Start: 06-02-2012 End: 10-04-2012 *Hepatic Function Panel *Hepatic Function Panel [employer] Work Phone: Start: 06-02-2012 End: 10-04-2012 Lipid panel [AGGREGATE] *Lipid Profile [employer] Work Phone: Start: 12-27-2011 End: 10-04-2012 *Hepatic Function Panel *Hepatic Function Panel [facility] Work Phone: Start: 12-27-2011 End: 10-04-2012 Lipid 1996 panel *Lipid Profile [facility] Work Phone: Start: 12-27-2011 End: 10-04-2012 *Hepatic Function Panel *Hepatic Function Panel [employer] Work Phone: Start: 12-27-2011 End: 10-04-2012 Lipid panel [AGGREGATE] *Lipid Profile [employer] Work Phone: Start: 11-03-2011 End: 11-03-2011 Follow Up Appt 6 months Follow Up Appt 6 months [facility] Work Phone: Start: 11-03-2011 End: 11-03-2011 Follow Up Appt 6 months Follow Up Appt 6 months [employer] [facility] Work Phone: Start: 08-03-2011 End: 12-29-2011 *Hepatic Function Panel *Hepatic Function Panel [facility] Work Phone: Start: 08-03-2011 End: 12-29-2011 Lipid 1996 panel *Lipid Profile [facility] Work Phone: Start: 08-03-2011 End: 12-29-2011 *Hepatic Function Panel *Hepatic Function Panel [employer] Work Phone: Start: 08-03-2011 End: 12-29-2011 Lipid panel [AGGREGATE] *Lipid Profile [employer] Work Phone: Start: 02-24-2011 End: 02-24-2011 Follow Up Appt 6 months Follow Up Appt 6 months [facility] Work Phone: Start: 02-24-2011 End: 02-24-2011 Follow Up Appt 6 months Follow Up Appt 6 months [facility] Work Phone: Patient Education HYPERLIPIDEMIA , CORONARY%20ARTERY%20DIS EASE, LIPID%20PROFILE [facility] Work Phone: Additional Source Comments FOR RECORDS PERTAINING TO PATIENTS WHO ARE OR HAVE BEEN ENROLLED IN A CHEMICAL DEPENDENCY/SUBSTANCEABUSE PROGRAM, SOME INFORMATION MAY BE OMITTED. This clinical summary was aggregated from multiple sources. Caution should be exercised in using it in the provision of clinical care. This summary normalizes information from multiple sources, and as a consequence, information in this document may materially change the coding, format and clinical context of patient data. In addition, data may be omitted in some cases. CLINICAL DECISIONS SHOULD BE BASED ON THE PRIMARY CLINICAL RECORDS. [employer] [facility]. provides no warranty or guarantee of the accuracy or completeness of information in this document.
[2023-06-06 15:17] LABS: ALB/GLOB Ratio 1.1 RATIO (0.9-2.4); AST(SGOT) 20 U/L (15-37); Alanine Aminotransfer ALT/SGPT 21 U/L (16-61); Albumin, Serum 3.4 g/dL (3.2-5.0); Alkaline Phosphatase 68 U/L (45-117); Anion Gap 5 (5-15); BUN 25 mg/dL (7-18); BUN/Creat Ratio 20.3 RATIO (10-20); Calcium,Total 9.1 mg/dL (8.5-10.1); Chloride 109 mmol/L (98-107); Creatinine, Serum 1.23 mg/dL (0.70-1.30); EST Glomerular Filtration Rate 60 mL/min (>60); Est Glom Filt Rate - Afr Amer 73 mL/min (>60); Globulin 3.1 g/dL (2.2-4.2); Glucose 106 mg/dL (74-106); Potassium 4.3 mmol/L (3.5-5.1); Protein, Total 6.5 g/dL (6.4-8.2); Sodium Level 141 mmol/L (136-145)
[2023-06-06 15:18] LABS: Hemoglobin A1c 6.8 % (3.8-5.6)
== END | disposition home or self-care (01) ==
LOC: MFPLAB 11:20
PROVIDERS: PCP Family Medicine; Visit Provider Family Medicine
DX: E11.22 Type 2 diabetes mellitus with diabetic chronic kidney disease (principal)
CPT/HCPCS: 36415; 80053; 82042; 82043; 82570; 83036

== ENCOUNTER 2023-07-01 12:30 | Inpatient (IN) | payer MEDICARE, SELFPAY ==
[2023-07-01] VITALS (16 sets, daily range): BP systolic 96–136; BP diastolic 64–99; PULSE 62–125; RESP 18–33; TEMP 35.8–36.3; O2SAT 93–100; BMI 37.3; BMI 35.3
--- NOTE | 2023-07-01 12:46 | EKG12_ITS ---
Test Reason : Blood Pressure : / mmHG Vent. Rate : 131 BPM Atrial Rate : 150 BPM P-R Int : 000 ms QRS Dur : 104 ms QT Int : 288 ms P-R-T Axes : 000 -32 137 degrees QTc Int : 425 ms Atrial fibrillation Left axis deviation Nonspecific T wave abnormality Abnormal ECG Confirmed by PATI BARROSO, JUSTIN ([id number]), editor department HEAVENLY JUAREZ ([id number]) on 07/04/2023 11:22:54 AM Referred By: Confirmed By:JUSTIN KRUEGER MD
--- NOTE | 2023-07-01 12:48 | EX.ED.DYSGE1 ---
HPI <RAFFAELE Santillan - Last Filed: 07/01/23 14:52> History of Present Illness Chief Complaint: Shortness of Breath Narrative Narrative: Patient is an 83-year-old male with history of atrial fibrillation on Eliquis, CHF, hypertension hyperlipidemia, diabetes, last stress test was in 2021 who sees cardiology presents to the emergency department for worsening shortness of breath. Patient states that he has been having worsening swelling to bilateral legs going above his knees. Patient states that he feels distended in his abdomen and is having worsening shortness of breath on exertion. Patient does have Lasix to take as needed, he took 1 on Tuesday as well as 1 today which is Tuesday. Patient thinks it is not working anymore. He denies any chest pain, he denies any fever or chills. PFSH <RAFFAELE Santillan - Last Filed: 07/01/23 14:52> [facility] Medical History Acute respiratory failure with hypoxemia Atherosclerotic heart disease of [place] coronary artery without angina pectoris Atrial fibrillation with RVR Chronic anticoagulation Chronic combined systolic and diastolic CHF (congestive heart failure) Essential (primary) hypertension GERD (gastroesophageal reflux disease) GERD (gastroesophageal reflux disease) History of non-ST elevation myocardial infarction (NSTEMI) (03/2016) Hyperlipidemia Hypomagnesemia Non-ischemic cardiomyopathy Normochromic normocytic anemia Obesity Obstructive sleep apnea Obstructive sleep apnea Paroxysmal atrial fibrillation Pneumonia Premature ventricular contractions Secondary pulmonary arterial hypertension Sepsis Type 2 diabetes mellitus Home Medications Cranberry 1 tab PO DAILY Supplement 03/18/16 [History Last Taken 07/01/23] cholecalciferol (vitamin D3) 50 mcg (2,000 unit) capsule 2,000 unit PO DAILY Supplement 03/18/16 [History Last Taken 07/01/23] insulin regular human 100 unit/mL injection solution 6 unit IM BID Diabetes 03/18/16 [History Last Taken 07/01/23] lisinopril 20 mg tablet 20 mg PO QHS 03/18/16 [History Last Taken 03/17/16 22:00] omeprazole 20 mg capsule,delayed release 20 mg PO DAILY 03/18/16 [History Last Taken 07/01/23] aspirin 81 mg tablet,delayed release 81 mg PO DAILY ##0 07/12/17 [Rx Last Taken 07/01/23] cinnamon bark 500 mg capsule 500 mg PO DAILY 06/27/18 [History Last Taken 07/01/23] albuterol sulfate 90 mcg/actuation aerosol inhaler 2 puff inhalation Q4H PRN ##1 06/29/18 [Rx Last Taken Unknown] furosemide 40 mg tablet 40 mg PO DAILY PRN edema 08/22/19 [History Last Taken Unknown] carvedilol 25 mg tablet 25 mg PO BID #180 tabs 09/11/21 [Rx Last Taken Unknown] nitroglycerin 0.4 mg sublingual tablet 0.4 mg sublingual Q5M PRN Chest Pain #1 BOTTLE 09/11/21 [Rx Last Taken Unknown] potassium citrate 5 mEq (540 mg) tablet,extended release 5 meq PO DAILY 90 days #90 tabs 11/11/21 [History Last Taken Unknown] atorvastatin 40 mg tablet 40 mg PO DAILY #90 tabs 01/13/22 [Rx Last Taken Unknown] apixaban 2.5 mg tablet 2.5 mg PO BID #60 tabs 04/06/22 [Rx Last Taken 07/01/23] isosorbide mononitrate 60 mg tablet,extended release 24 hr 60 mg PO DAILY #90 tabs 04/06/22 [Rx Last Taken Unknown] magnesium oxide 400 mg (241.3 mg magnesium) tablet 400 mg PO DAILY #90 tabs 04/06/22 [Rx Last Taken 07/01/23] Allergy/AdvReac Type Severity Reaction Status Date / Time No Known Allergies Allergy Verified 07/01/23 12:33 Family History Father Myocardial infarction Mother Diabetes Hypertension TIA (transient ischemic attack) Brother Myocardial infarction, Onset Age: 38 CAD (coronary artery disease) Hx CABG and stents Sister CVA (cerebral vascular accident) Hypertension Surgical History H/O coronary artery bypass surgery (09/16/08) History of left heart catheterization (03/18/16) Social History Smoking Status: Never smoker alcohol intake: never substance use type: does not use caffeine: Yes Type: carbonated beverages what type of physical activity do you participate in: none seatbelt use: always do you feel safe at home: Yes ROS <RAFFAELE Santillan - Last Filed: 07/01/23 14:52> ROS ED ROS Narrative Constitutional: Negative for fever, chills, weight loss, weakness Eyes: Negative for vision loss, vision change, double vision ENT: Negative for any sore throat, ear pain, congestion Cardiovascular: Negative for any chest pain, tightness, palpitations Respiratory: Negative for any cough, sputum production, hemoptysis.positive for dyspnea, dyspnea on exertion, orthopnea Gastrointestinal: Negative for any abdominal pain, nausea, vomiting, diarrhea, constipation, blood in stool, blood in vomit : Negative for any urinary frequency, dysuria, retention, blood in urine Muscle skeletal: Negative for any neck pain, back pain. Positive for bilateral lower leg edema Neurological: Negative for any headache, syncope, dizziness Skin: Negative for any rashes, itching, abrasions, lacerations Psychiatric: Negative for any depression, anxiety, stress, suicidal ideation, homicidal ideation Hematologic: Negative for any excessive bruising, easy bleeding EXAM <RAFFAELE Santillan - Last Filed: 07/01/23 14:52> Physical Exam Narrative Exam Narrative: Vital signs reviewed. Patient's vital signs are stable. Patient appears to be in no obvious distress HEET: Head normocephalic atraumatic, TMs clear bilaterally. Posterior pharynx is clear, moist mucous membranes. Nares clear bilaterally. Neck: Supple with no lymphadenopathy or tenderness. No signs of meningismus. Cardiac: Irregular rate no murmurs gallops or rubs, equal peripheral pulses bilaterally. Respiratory: Lung sounds are clear, diminished lung sounds to the right mid to lower lobes. No chest tenderness. Abdomen: Soft, nontender, patient does have some distention to the lower abdomen. No abdominal bruit or pulsatile masses. No hepatosplenomegaly Extremities: Patient has +3 pitting edema to bilateral lower extremities going up to the thighs. No signs of gross trauma or deformity. Active full range of motion of all extremities. Neuro: Cranial nerves II through XII intact, no focal neurological deficits. Skin: Clean dry and intact with no rash, purpura, petechiae, vesicles or pustules. Backs/flank: No CVA tenderness, no midline spinal tenderness, no deformity. Psych: Normal mood and affect. No SI, HI or acute psychosis. Const Vital Signs: 07/01/23 12:31 07/01/23 13:32 07/01/23 13:34 Temperature 97.4 F L Temperature Source Temporal Pulse Rate 62 Respiratory Rate 18 Respiratory Effort Normal Non-Labored Respiratory Depth Normal Respiratory Pattern Normal Blood Pressure 132/95 H Blood Pressure Mean 107 Pulse Ox 100 94 Oxygen Delivery Method Room Air Room Air Room Air 07/01/23 14:30 07/01/23 14:55 07/01/23 14:56 Temperature 97.4 F L 97.4 F L 97.4 F L Temperature Source Oral Oral Pulse Rate 121 H 125 H 105 H Respiratory Rate 20 H 22 H 22 H Respiratory Effort Respiratory Depth Respiratory Pattern Blood Pressure 106/75 105/73 96/80 Blood Pressure Mean 85 83 85 Pulse Ox 98 98 98 Oxygen Delivery Method Room Air Room Air Positive well nourished and well developed General Appearance ED: well developed <Dr. See Gore DO - Last Filed: 07/01/23 15:53> Physical Exam Const Vital Signs: 07/01/23 12:31 07/01/23 13:32 07/01/23 13:34 Temperature 97.4 F L Temperature Source Temporal Pulse Rate 62 Respiratory Rate 18 Respiratory Effort Normal Non-Labored Respiratory Depth Normal Respiratory Pattern Normal Blood Pressure 132/95 H Blood Pressure Mean 107 Pulse Ox 100 94 Oxygen Delivery Method Room Air Room Air Room Air 07/01/23 14:30 07/01/23 14:55 07/01/23 14:56 Temperature 97.4 F L 97.4 F L 97.4 F L Temperature Source Oral Oral Pulse Rate 121 H 125 H 105 H Respiratory Rate 20 H 22 H 22 H Respiratory Effort Respiratory Depth Respiratory Pattern Blood Pressure 106/75 105/73 96/80 Blood Pressure Mean 85 83 85 Pulse Ox 98 98 98 Oxygen Delivery Method Room Air Room Air MDM <RAFFAELE Santillan - Last Filed: 07/01/23 14:52> MDM Lab Data Labs: Laboratory Results - last 24 hr 07/01/23 07/01/23 13:15 14:19 WBC 9.4 RBC 4.66 Hgb 12.8 L Hct 40.9 MCV 87.8 MCH 27.5 MCHC 31.3 L RDW Std Deviation 51.8 H RDW Coeff of Edwardo 16.3 H Plt Count 281 MPV 9.9 Immature Gran % (Auto) 0.500 Neut % (Auto) 86.3 H Lymph % (Auto) 4.6 L Tucker % (Auto) 6.7 Eos % (Auto) 1.3 Baso % (Auto) 0.6 Absolute Neuts (auto) 8.1 H Absolute Lymphs (auto) 0.43 L Nucleated RBC % 0 Sodium 139 Potassium 4.6 Chloride 108 H Carbon Dioxide 23.0 Anion Gap 8 BUN 33 H Creatinine 1.37 H Estim Creat Clear Calc 44.81 Est GFR (MDRD) Af Amer 64 Est GFR (MDRD) Non-Af 53 L BUN/Creatinine Ratio 24.1 H Glucose 157 H Calcium 9.5 Troponin I High Sens 156 H* 149 H* B-Natriuretic Peptide 1553.4 H Radiography Diagnostic Testing: Clinical Impression(s) from Imaging Studies Chest X-Ray 07/01/23 12:55 IMPRESSION: Degenerative changes, as described above. No demonstrated acute cardiopulmonary process. Electronically Signed: Erlin Negrete MD at 13:35 EDT , EKG Atrial fib, rate 131 bpm: Attestation: I personally reviewed and interpreted this EKG as follows: Comments: Atrial fibrillation with rate 131 bpm, QRS duration 104 ms, no acute ST elevation, no acute infarct noted. Treatment and Re-Evaluation :: Differential diagnosis includes however is not limited to: CHF exacerbation, being acquired pneumonia, pulmonary hypertension, ascites, DVT Patient appears to be in no obvious respiratory distress, vital signs are stable. At rest the patient looks to be well appearing. Physical examination is consistent with fluid overload, patient does have +3 pitting edema bilaterally that goes up to the thighs. Abdomen is distended. Patient does have diminished lung sounds to the right side. Patient has no chest pain, patient does have history of A-fib. EKG will be ordered. Troponin, BNP will be ordered, I am concerned for the patient's kidney function. I have low suspicion for any DVT or PE secondary to patient taking Eliquis, as well as history of CHF. Patient will be reevaluated. Two-view chest x-ray will be ordered. All radiologic examinations were read, reviewed by the emergency department attending. From these reads, a plan of care will be put in place. Positive for degenerative changes, no acute cardiopulmonary process. Patient's CBC was unremarkable patient's chemistries show a creatinine of 1.37 however this seems to be baseline for the patient. Patient's troponin was 156, repeat will be drawn this could be secondary to the atrial fibrillation RVR and reactive. Patient's BNP was 1553, in 2019, patient was 716. Patient was given 5 mg Lopressor IV as well as 60 mg of IV Lasix. Patient's blood pressure did drop to 97/47. Patient heart rate is now between 95 and 115. I do believe the patient is stable for admission. Spoke with hospitalist, patient is agreeable, all questions answered, stable for admission. <Dr. See Gore, DO - Last Filed: 07/01/23 15:53> MDM History & Record Review Discussion w/independent historian: Patient Lab Data Attestation: I reviewed the patient's lab results. Labs: Laboratory Results - last 24 hr 07/01/23 07/01/23 13:15 14:19 WBC 9.4 RBC 4.66 Hgb 12.8 L Hct 40.9 MCV 87.8 MCH 27.5 MCHC 31.3 L RDW Std Deviation 51.8 H RDW Coeff of Edwardo 16.3 H Plt Count 281 MPV 9.9 Immature Gran % (Auto) 0.500 Neut % (Auto) 86.3 H Lymph % (Auto) 4.6 L Tucker % (Auto) 6.7 Eos % (Auto) 1.3 Baso % (Auto) 0.6 Absolute Neuts (auto) 8.1 H Absolute Lymphs (auto) 0.43 L Nucleated RBC % 0 Sodium 139 Potassium 4.6 Chloride 108 H Carbon Dioxide 23.0 Anion Gap 8 BUN 33 H Creatinine 1.37 H Estim Creat Clear Calc 44.81 Est GFR (MDRD) Af Amer 64 Est GFR (MDRD) Non-Af 53 L BUN/Creatinine Ratio 24.1 H Glucose 157 H Calcium 9.5 Troponin I High Sens 156 H* 149 H* B-Natriuretic Peptide 1553.4 H Radiography Diagnostic Testing: Clinical Impression(s) from Imaging Studies Chest X-Ray 07/01/23 12:55 IMPRESSION: Degenerative changes, as described above. No demonstrated acute cardiopulmonary process. Electronically Signed: Erlin Negrete MD at 13:35 EDT , Management Discussion w/another healthcare provider: Hospitalist Treatment and Re-Evaluation :: Differential diagnosis includes however is not limited to: CHF exacerbation, being acquired pneumonia, pulmonary hypertension, ascites, DVT Patient appears to be in no obvious respiratory distress, vital signs are stable. At rest the patient looks to be well appearing. Physical examination is consistent with fluid overload, patient does have +3 pitting edema bilaterally that goes up to the thighs. Abdomen is distended. Patient does have diminished lung sounds to the right side. Patient has no chest pain, patient does have history of A-fib. EKG will be ordered. Troponin, BNP will be ordered, I am concerned for the patient's kidney function. I have low suspicion for any DVT or PE secondary to patient taking Eliquis, as well as history of CHF. Patient will be reevaluated. Two-view chest x-ray will be ordered. All radiologic examinations were read, reviewed by the emergency department attending. From these reads, a plan of care will be put in place. Positive for degenerative changes, no acute cardiopulmonary process. Patient's CBC was unremarkable patient's chemistries show a creatinine of 1.37 however this seems to be baseline for the patient. Patient's troponin was 156, repeat will be drawn this could be secondary to the atrial fibrillation RVR and reactive. Patient's BNP was 1553, in 2019, patient was 716. Patient was given 5 mg Lopressor IV as well as 60 mg of IV Lasix. Patient's blood pressure did drop to 97/47. Patient heart rate is now between 95 and 115. I do believe the patient is stable for admission. Spoke with hospitalist, patient is agreeable, all questions answered, stable for admission. I have personally performed a face to face assessment of the patient and have reviewed the OENL Note. I performed a substantive portion of the visit including all aspects of the following. My malcolm findings include: History is 83-year-old male with a history of atrial fibrillation and combined CHF presenting to the emergency room with progressive lower extremity edema. He tells nursing late in his ED course that he has not been taking his carvedilol. Patient notes no significant shortness of breath but feels generally weak. He is on apixaban. No reported fevers. Exam is diffuse leg swelling. Heart is irregularly irregular and tachycardic. Lung sounds are otherwise clear. ANO x 3. Medical Decison Making EKG is nonischemic. His BNP is significantly elevated. He received a single dose of metoprolol for the tachycardia which did decrease his heart rate. He also received some Lasix. Plan will be admission for A-fib with RVR and CHF. Discharge Plan Dx/Rx/DC Orders Clinical Impression: Chronic anticoagulation, Atherosclerotic heart disease of [place] coronary artery without angina pectoris, Chronic combined systolic and diastolic CHF (congestive heart failure), Atrial fibrillation with RVR Disposition Disposition: Acute Care [facility]
--- NOTE | 2023-07-01 12:55 | RAD_ITS ---
STUDY: X-RAY CHEST REASON FOR EXAM: Male, 83 years old. chest pain TECHNIQUE: PA and lateral views of the chest. COMPARISON: June 28, 2018 FINDINGS: No focal consolidation is present. There are interstitial fibrotic changes of the lungs. There is no demonstrated pleural abnormality. Sternal cerclage wires and vascular clips are present from a prior sternotomy and coronary artery bypass graft procedure (CABG). Mild cardiomegaly unchanged. Normal mediastinum and soledad. Normal visualized pulmonary arteries. There is atherosclerotic calcification of the aortic arch with tortuosity. There are diffuse degenerative changes of the visualized thoracic spine. Normal visualized ribs, clavicles, and shoulders. There is no demonstrated abnormality of the visualized soft tissue structures of the upper abdomen. RAD/Chest PA and Lateral IMPRESSION: Degenerative changes, as described above. No demonstrated acute cardiopulmonary process. Electronically Signed: Erlin Negrete MD at 13:35 EDT ,
[2023-07-01 13:30] LABS: Absolute Lymphocyte Count 0.43 X10^3/uL (0.83-4.51); Absolute Neutrophil Count 8.1 X10^3/uL (2.0-7.7); Basophil# 0.06 X10^3/uL; Basophil% 0.6 % (0-1); Eosinophil# 0.12 X10^3/uL; Eosinophils% 1.3 % (0-5); Hematocrit 40.9 % (40-54); Hemoglobin 12.8 g/dL (13.0-16.5); Lymphocyte # 0.43 X10^3/ul (0.83-4.51); Lymphocyte % 4.6 % (19-41); Mean Corp Hgb Conc 31.3 g/dL (32-36); Mean Corpuscular Hgb 27.5 pg (27.0-32.0); Mean Corpuscular Volume 87.8 fL (80-94); Mean Platelet Vol. 9.9 fl (6.2-12.0); Monocyte# 0.63 X10^3/uL; Monocyte% 6.7 % (0-10); NRBC Flagged by Analyzer 0 % (0-5); Neutrophil # 8.07 X10^3/uL (2.7-7.7); Neutrophil % 86.3 % (47-70); POSITIVE DIFFERENTIAL YES; Platelet Count 281 K/mm3 (150-450); RBC Distribution Width CV 16.3 % (11.6-14.6); RBC Distribution Width SD 51.8 fl (35.1-43.9); Red Blood Count 4.66 M/mm3 (4.6-6.2); White Blood Count 9.4 K/mm3 (4.4-11.0)
[2023-07-01 13:55] LABS: BNP,B-Type NATRIURETIC PEPTIDE 1553.4 pg/mL (0-100)
[2023-07-01 13:59] LABS: Anion Gap 8 (5-15); BUN 33 mg/dL (7-18); BUN/Creat Ratio 24.1 RATIO (10-20); Calcium,Total 9.5 mg/dL (8.5-10.1); Chloride 108 mmol/L (98-107); Creatinine, Serum 1.37 mg/dL (0.70-1.30); EST Glomerular Filtration Rate 53 mL/min (>60); Est Glom Filt Rate - Afr Amer 64 mL/min (>60); Estimated Creatinine Clearance 44.81 ml/min; Glucose 157 mg/dL (74-106); Potassium 4.6 mmol/L (3.5-5.1); Sodium Level 139 mmol/L (136-145); Troponin-I HS 156 pg/mL (3.0-78.0)
[2023-07-01] MEDS: Furosemide 100 MG/10 ML Vial 60 MG IV (14:18)
[2023-07-01] MEDS: Metoprolol Tartrate 5 MG/5 ML Vial IV (14:22)
[2023-07-01 14:53] LABS: Troponin-I HS 149 pg/mL (3.0-78.0)
--- NOTE | 2023-07-01 15:26 | HP.PCM.HOS_ITS ---
[facility] - General General Date of Admission: 07/01/23 Date of Service: 07/01/23 Chief Complaint: shortness of breath HPI Narrative REYES ACUÑA, is a 83 M who presents with shortness of breath. Patient has noticed increased shortness of breath and lower extremity edema over the past several weeks. Patient ran out of many of his medications, including his carvedilol a while ago. That may be months but he could not be sure. So he presented here and was noted to be in atrial fibrillation with RVR. He did receive one-time dose of 5 mg of IV metoprolol tartrate and his heart rate improved down to around 100. Patient also noting increased lower extremity edema and thinks his weight may have gone up 10 pounds with his weight today and did receive one-time dose of IV furosemide. When asked why he did not have his meds occasions refilled, he did not have an answer. [facility] Medical History Acute respiratory failure with hypoxemia Atherosclerotic heart disease of [place] coronary artery without angina pectoris Atrial fibrillation with RVR Chronic anticoagulation Chronic combined systolic and diastolic CHF (congestive heart failure) Essential (primary) hypertension GERD (gastroesophageal reflux disease) GERD (gastroesophageal reflux disease) History of non-ST elevation myocardial infarction (NSTEMI) (03/2016) Hyperlipidemia Hypomagnesemia Non-ischemic cardiomyopathy Normochromic normocytic anemia Obesity Obstructive sleep apnea Obstructive sleep apnea Paroxysmal atrial fibrillation Pneumonia Premature ventricular contractions Secondary pulmonary arterial hypertension Sepsis Type 2 diabetes mellitus Home Medications Cranberry 1 tab PO DAILY Supplement 03/18/16 [History Last Taken 07/01/23] cholecalciferol (vitamin D3) 50 mcg (2,000 unit) capsule 2,000 unit PO DAILY Supplement 03/18/16 [History Last Taken 07/01/23] insulin regular human 100 unit/mL injection solution 6 unit IM BID Diabetes 03/18/16 [History Last Taken 07/01/23] lisinopril 20 mg tablet 20 mg PO QHS 03/18/16 [History Last Taken 03/17/16 22:00] omeprazole 20 mg capsule,delayed release 20 mg PO DAILY 03/18/16 [History Last Taken 07/01/23] aspirin 81 mg tablet,delayed release 81 mg PO DAILY ##0 07/12/17 [Rx Last Taken 07/01/23] cinnamon bark 500 mg capsule 500 mg PO DAILY 06/27/18 [History Last Taken 07/01/23] albuterol sulfate 90 mcg/actuation aerosol inhaler 2 puff inhalation Q4H PRN ##1 06/29/18 [Rx Last Taken Unknown] furosemide 40 mg tablet 40 mg PO DAILY PRN edema 08/22/19 [History Last Taken Unknown] carvedilol 25 mg tablet 25 mg PO BID #180 tabs 09/11/21 [Rx Last Taken Unknown] nitroglycerin 0.4 mg sublingual tablet 0.4 mg sublingual Q5M PRN Chest Pain #1 BOTTLE 09/11/21 [Rx Last Taken Unknown] potassium citrate 5 mEq (540 mg) tablet,extended release 5 meq PO DAILY 90 days #90 tabs 11/11/21 [History Last Taken Unknown] atorvastatin 40 mg tablet 40 mg PO DAILY #90 tabs 01/13/22 [Rx Last Taken Unknown] apixaban 2.5 mg tablet 2.5 mg PO BID #60 tabs 04/06/22 [Rx Last Taken 07/01/23] isosorbide mononitrate 60 mg tablet,extended release 24 hr 60 mg PO DAILY #90 tabs 04/06/22 [Rx Last Taken Unknown] magnesium oxide 400 mg (241.3 mg magnesium) tablet 400 mg PO DAILY #90 tabs 04/06/22 [Rx Last Taken 07/01/23] Allergy/AdvReac Type Severity Reaction Status Date / Time No Known Allergies Allergy Verified 07/01/23 12:33 Family History Father Myocardial infarction Mother Diabetes Hypertension TIA (transient ischemic attack) Brother Myocardial infarction, Onset Age: 38 CAD (coronary artery disease) Hx CABG and stents Sister CVA (cerebral vascular accident) Hypertension Surgical History H/O coronary artery bypass surgery (09/16/08) History of left heart catheterization (03/18/16) Social History Smoking Status: Never smoker alcohol intake: never substance use type: does not use caffeine: Yes Type: carbonated beverages what type of physical activity do you participate in: none seatbelt use: always do you feel safe at home: Yes BRITTANI PETER Narrative [place] dizzy today. All review of systems were negative except as mentioned above in the history of present illness and the other review of systems. Vital Signs Vital Signs Vital Signs: 07/01/23 12:31 07/01/23 13:32 07/01/23 13:34 Temperature 36.3 C L Temperature Source Temporal Pulse Rate 62 Respiratory Rate 18 Respiratory Effort Normal Non-Labored Respiratory Depth Normal Respiratory Pattern Normal Blood Pressure 132/95 H Blood Pressure Mean 107 Pulse Ox 100 94 Oxygen Delivery Method Room Air Room Air Room Air 07/01/23 14:30 07/01/23 14:55 07/01/23 14:56 Temperature 36.3 C L 36.3 C L 36.3 C L Temperature Source Oral Oral Pulse Rate 121 H 125 H 105 H Respiratory Rate 20 H 22 H 22 H Respiratory Effort Respiratory Depth Respiratory Pattern Blood Pressure 106/75 105/73 96/80 Blood Pressure Mean 85 83 85 Pulse Ox 98 98 98 Oxygen Delivery Method Room Air Room Air Weight Weight: 98.486 kg Body Mass Index (BMI) 37.3 Physical Exam Const alert and no apparent distress Constitutional Narrative: No respiratory distress. No conversational dyspnea. General Appearance: cooperative HEENT normocephalic Eyes Eyes Narrative: No icterus. Positive glasses. Neck no lymphadenopathy and no JVD Neck Narrative: No thyromegaly. Resp normal respiratory effort, no retractions, no use of accessory muscles and clear to auscultation bilaterally Cardio regular rate, regular rhythm, S1 normal heart sound and S2 normal heart sound GI normal to inspection, nondistended, normoactive bowel sounds, soft to palpation, non-tender, non-distended and hepatosplenomegaly Extremity Extremity Narrative: 2+ lower extremity edema bilaterally. Skin Skin Narrative: No rashes or lesions. Neuro moves all extremities and no focal motor deficits Sensorium / Orientation: awake and alert Psych affect normal Results Lab / Micro Data Attestation: I reviewed the patient's lab results. 07/01/23 13:15 07/01/23 13:15 Labs: Laboratory Results - last 24 hr 07/01/23 13:15: WBC 9.4, RBC 4.66, Hgb 12.8 L, Hct 40.9, MCV 87.8, MCH 27.5, MCHC 31.3 L, RDW Std Deviation 51.8 H, RDW Coeff of Edwardo 16.3 H, Plt Count 281, MPV 9.9, Immature Gran % (Auto) 0.500, Neut % (Auto) 86.3 H, Lymph % (Auto) 4.6 L, [place] % (Auto) 6.7, Eos % (Auto) 1.3, Baso % (Auto) 0.6, Absolute Neuts (auto) 8.1 H, Absolute Lymphs (auto) 0.43 L, Nucleated RBC % 0, Sodium 139, Potassium 4.6, Chloride 108 H, Carbon Dioxide 23.0, Anion Gap 8, BUN 33 H, Creatinine 1.37 H, Estim Creat Clear Calc 44.81, Est GFR (MDRD) Af Amer 64, Est GFR (MDRD) Non- Af 53 L, BUN/Creatinine Ratio 24.1 H, Glucose 157 H, Calcium 9.5, Troponin I High Sens 156 H*, B-Natriuretic Peptide 1553.4 H 07/01/23 14:19: Troponin I High Sens 149 H* EKG Initial EKG: Attestation: I personally reviewed and interpreted this EKG as follows: Prior EKG tracings: available for review EKG Rhythm Intrepretation: Atrial Fibrillation Imaging Radiology Impression Chest X-Ray 07/01/23 12:55 IMPRESSION: Degenerative changes, as described above. No demonstrated acute cardiopulmonary process. Electronically Signed: Erlin Negrete MD at 13:35 EDT Reading Location ID and State: [address] [place] [address] , Service support , Assessment & Plan Assessment/Plan (1) Atrial fibrillation with RVR: (2) CHF exacerbation: PLAN: Plan Atrial fibrillation with RVR * Appears to be improved from initial presentation to the emergency room. * Patient has not taken his medications because he is ran out and did not have those refilled. His blood pressure is a bit on the softer side so we will resume his carvedilol which previously was at 25 but will restart at 12.5 mg twice daily. Patient did receive one-time dose of IV metoprolol tartrate in the emergency room. * Patient states that he has been taking his apixaban. That will be continued * Check an echocardiogram Acute HFrEF * EF on 2D echocardiogram 45% from September 28, 2018. * Patient received 60 mg of IV furosemide emergency room. Will continue with 40 mg IV twice daily. * Continue with the lisinopril with hold parameters for systolic blood pressure less than 110. * Recheck 2D echocardiogram * Consult cardiology Elevated troponins * Etiology could be coronary thrombosis versus demand ischemia from heart failure and atrial fibrillation with with RVR. We favoring a type II demand ischemia picture. * Patient already anticoagulated on apixaban. Continue with aspirin. * Cardiology consult. Chronic conditions * Diabetes mellitus type 2: Hold his scheduled Humalog. Sliding scale insulin for now. * Hyperlipidemia: Continue statin VTE prophylaxis: Not indicated as patient is already anticoagulated. CODE STATUS: Addressed with the patient. Patient wishes to be full code. Charges/Coding Visit Charges Inpatient E&M: 43974 Init Hosp L3
--- NOTE | 2023-07-01 15:46 | ECHOCS_ITS ---
Reason For Study: CHF Procedure This was a 2D Doppler, Color Flow transthoracic echocardiogram. The study was technically difficult. Contrast injection was performed. Exam performed portable in patient room. Left Ventricle Moderately dilated left ventricle. The estimated ejection fraction is 25-30 %. Right Ventricle Moderately dilated right ventricle. Moderately severe global right ventricular systolic dysfunction. Atria The left atrium is moderately enlarged. The right atrium is moderately enlarged. Mitral Valve The mitral valve is structurally normal. No prolapse or stenosis seen. Moderate (2+) eccentric mitral valve insufficiency. Tricuspid Valve Normal tricuspid valve. Aortic Valve Trisinus/trileaflet aortic valve. Trivial aortic valve insufficiency. Pulmonic Valve The pulmonic valve is not well visualized. Great Vessels Normal aortic root. Pericardium/Pleural No pericardial effusion. Medication Diluted definity 2ml given slow IV push to enhance endocardial definition. MMode/2D Measurements & Calculations LVIDd: 5.8 cm IVSd: 1.5 cm LAV(MOD-bp): 105.0 ml LVIDs: 5.4 cm LVPWd: 1.6 cm FS: 8.3 % LAV(MOD-bp) Indexed: 51.8 ml/m2 LAV(MOD-sp2): 92.7 ml LAV(MOD-sp4): 103.0 ml SV(MOD-sp4): 48.1 ml SV(sp4-el): 52.0 ml LVAd ap4: 39.8 cm2 LVLd ap4: 9.0 cm EDV(MOD-sp4): 141.3 ml EDV(sp4-el): 149.6 ml LVAs ap4: 30.7 cm2 LVLs ap4: 8.2 cm ESV(MOD-sp4): 93.1 ml ESV(sp4-el): 97.6 ml EF(MOD-sp4): 34.1 % EF(sp4-el): 34.8 % LA A4 area: 28.3 cm2 RA A4 area: 23.8 cm2 Doppler Measurements & Calculations TR max reyes: 307.8 cm/sec TR max P.9 mmHg ECHO/Echo Complete W/ Contrast Interpretation Summary The estimated ejection fraction is 25-30 %. Worsening of LV systolic function In comparison to previous echo in 2019 between 2 bracket EF was 45% Now the ejection fraction in the range of 25-30% Severe global LV hypokinesia. Moderate biatrial enlargement Moderate MR Trivial PI No pericardial effusion. Contrast echo used/d Definity Ordering Physician: Vijay Cummings Referring Physician: VIJAY JOSEPH Performed By: Krissy Uribe RCS
--- NOTE | 2023-07-01 16:37 | PCM.CONS.C ---
Assessment & Plan Assessment/Plan (1) H/O coronary artery bypass surgery: (2) Paroxysmal atrial fibrillation: (3) Chronic combined systolic and diastolic CHF (congestive heart failure): (4) Secondary pulmonary arterial hypertension: (5) Essential (primary) hypertension: (6) Chronic anticoagulation: PLAN: 83-year-old patient, admitted through the ER with a chief complaint of shortness of breath Does not have any active chest pain This patient has extensive cardiac history In 2008 he had a history of triple vessel bypass Including GUAMAN to LAD SVG to ramus and SVG to circumflex artery Last echocardiogram was in 2021 where he had a nuclear stress test showed moderate LV systolic dysfunction with no evidence of perfusion defect with no reversible ischemia He lives by himself and he noted recently he got progressively short winded fatigue remarkable bilateral lower extremity edema and also mentioned that he was short of his medication and he did not kept regular follow-up with the cardiology team here at [facility] I reviewed all his current evaluation as well as his current medication in the EKG. Cardiac care plan recommendation 1. Patient has acute on chronic systolic/diastolic combined heart failure Will continue on IV diuresis. And will address guideline directed medical therapy 2. Patient has paroxysmal atrial fibrillation with rapid ventricular rate Will continue on rate control as well we will resume his anticoagulation he was no taking any anticoagulation when he came in. Will start on Eliquis. Other medical problem include hypertension hyperlipidemia and. History of pulmonary hypertension I reviewed his current medication as well as current lab result Patient has type II SD with demand myocardial ischemia with a serum troponin level in the range of 149?156 Has significant elevation of pain nitrated peptide of 1553. Will continue to monitor and follow-up clinically Also I request echocardiogram to reevaluate his LV function. Patient has been noncompliance with follow-up as well as noncompliance with medical treatment Will discuss further cardiac care plan based on results of echocardiogram and clinical follow-up. Koko Azar MD,[facility] HPI Consult Data Date of Consult: 07/01/23 HPI Narrative Reason for Consultation: CAD/CHF/A-fib with RVR HPI Narrative: REYES ACUÑA, is a 83 M who presents [facility] Medical History Acute respiratory failure with hypoxemia Atherosclerotic heart disease of [place] coronary artery without angina pectoris Atrial fibrillation with RVR Chronic anticoagulation Chronic combined systolic and diastolic CHF (congestive heart failure) Essential (primary) hypertension GERD (gastroesophageal reflux disease) GERD (gastroesophageal reflux disease) History of non-ST elevation myocardial infarction (NSTEMI) (03/2016) Hyperlipidemia Hypomagnesemia Non-ischemic cardiomyopathy Normochromic normocytic anemia Obesity Obstructive sleep apnea Obstructive sleep apnea Paroxysmal atrial fibrillation Pneumonia Premature ventricular contractions Secondary pulmonary arterial hypertension Sepsis Type 2 diabetes mellitus Home Medications Cranberry 1 tab PO DAILY Supplement 03/18/16 [History Last Taken 07/01/23] cholecalciferol (vitamin D3) 50 mcg (2,000 unit) capsule 2,000 unit PO DAILY Supplement 03/18/16 [History Last Taken 07/01/23] insulin regular human 100 unit/mL injection solution 6 unit IM BID Diabetes 03/18/16 [History Last Taken 07/01/23] lisinopril 20 mg tablet 20 mg PO QHS 03/18/16 [History Last Taken 03/17/16 22:00] omeprazole 20 mg capsule,delayed release 20 mg PO DAILY 03/18/16 [History Last Taken 07/01/23] aspirin 81 mg tablet,delayed release 81 mg PO DAILY ##0 07/12/17 [Rx Last Taken 07/01/23] cinnamon bark 500 mg capsule 500 mg PO DAILY 06/27/18 [History Last Taken 07/01/23] albuterol sulfate 90 mcg/actuation aerosol inhaler 2 puff inhalation Q4H PRN ##1 06/29/18 [Rx Last Taken Unknown] furosemide 40 mg tablet 40 mg PO DAILY PRN edema 08/22/19 [History Last Taken Unknown] carvedilol 25 mg tablet 25 mg PO BID #180 tabs 09/11/21 [Rx Last Taken Unknown] nitroglycerin 0.4 mg sublingual tablet 0.4 mg sublingual Q5M PRN Chest Pain #1 BOTTLE 09/11/21 [Rx Last Taken Unknown] potassium citrate 5 mEq (540 mg) tablet,extended release 5 meq PO DAILY 90 days #90 tabs 11/11/21 [History Last Taken Unknown] atorvastatin 40 mg tablet 40 mg PO DAILY #90 tabs 01/13/22 [Rx Last Taken Unknown] apixaban 2.5 mg tablet 2.5 mg PO BID #60 tabs 04/06/22 [Rx Last Taken 07/01/23] isosorbide mononitrate 60 mg tablet,extended release 24 hr 60 mg PO DAILY #90 tabs 04/06/22 [Rx Last Taken Unknown] magnesium oxide 400 mg (241.3 mg magnesium) tablet 400 mg PO DAILY #90 tabs 04/06/22 [Rx Last Taken 07/01/23] Allergy/AdvReac Type Severity Reaction Status Date / Time No Known Allergies Allergy Verified 07/01/23 12:33 Family History Father Myocardial infarction Mother Diabetes Hypertension TIA (transient ischemic attack) Brother Myocardial infarction, Onset Age: 38 CAD (coronary artery disease) Hx CABG and stents Sister CVA (cerebral vascular accident) Hypertension Surgical History H/O coronary artery bypass surgery (09/16/08) History of left heart catheterization (03/18/16) Social History Smoking Status: Never smoker alcohol intake: never substance use type: does not use caffeine: Yes Type: carbonated beverages what type of physical activity do you participate in: none seatbelt use: always do you feel safe at home: Yes Physical Exam Cardio Cardio Narrative: Patient seen evaluated in the progressive care unit Along with the nursing staff Underlying cardiac rhythm is A-fib with RVR Cardiovascular exam S1-S2 is regular No systolic or diastolic murmur Chest exam diminished air entry bilateral with basal rales Abdomen distended. Remarkable bilateral lower extremity edema +4 Risk Stratification Risk Stratification Applicable: Yes Age >/= 65: Yes >/= 3 CAD Risk Factors (HTN, HLD, DM, family hx of CAD, or current smoker): Yes Aspirin Use in the Past 7 Days: Yes Severe Angina (>/= episodes in 24 hours): No EKG ST Changes >/= 0.5mm: Yes Positive Cardiac Marker: Yes UNA Risk Stratification Score: 5 UNA % Risk: 25% Risk Objective Data Vital Signs: Vital Signs Temp Pulse Resp BP Pulse Ox O2 Del Method 97.4 F L 105 H 22 H 96/80 98 Room Air 07/01/23 14:56 07/01/23 14:56 07/01/23 14:56 07/01/23 14:56 07/01/23 14:56 07/01/23 14:56 Oxygen Delivery Method Room Air Weight: 205 lb 14.588 oz Body Mass Index (BMI) 35.3 Lab / Micro Data 07/01/23 13:15 07/01/23 13:15 Labs: Laboratory Results - last 24 hr 07/01/23 13:15: WBC 9.4, RBC 4.66, Hgb 12.8 L, Hct 40.9, MCV 87.8, MCH 27.5, MCHC 31.3 L, RDW Std Deviation 51.8 H, RDW Coeff of Edwardo 16.3 H, Plt Count 281, MPV 9.9, Immature Gran % (Auto) 0.500, Neut % (Auto) 86.3 H, Lymph % (Auto) 4.6 L, [place] % (Auto) 6.7, Eos % (Auto) 1.3, Baso % (Auto) 0.6, Absolute Neuts (auto) 8.1 H, Absolute Lymphs (auto) 0.43 L, Nucleated RBC % 0, Sodium 139, Potassium 4.6, Chloride 108 H, Carbon Dioxide 23.0, Anion Gap 8, BUN 33 H, Creatinine 1.37 H, Estim Creat Clear Calc 44.81, Est GFR (MDRD) Af Amer 64, Est GFR (MDRD) Non-Af 53 L, BUN/Creatinine Ratio 24.1 H, Glucose 157 H, Calcium 9.5, Troponin I High Sens 156 H*, B-Natriuretic Peptide 1553.4 H 07/01/23 14:19: Troponin I High Sens 149 H* Cardiology Labs/Tests 07/01/23 13:15: WBC 9.4, RBC 4.66, Hgb 12.8 L, Hct 40.9, MCV 87.8, MCH 27.5, MCHC 31.3 L, Plt Count 281, MPV 9.9, Immature Gran % (Auto) 0.500, Neut % (Auto) 86.3 H, Lymph % (Auto) 4.6 L, [place] % (Auto) 6.7, Eos % (Auto) 1.3, Baso % (Auto) 0.6, Absolute Neuts (auto) 8.1 H, Nucleated RBC % 0, Sodium 139, Potassium 4.6, Chloride 108 H, Carbon Dioxide 23.0, Anion Gap 8, BUN 33 H, Creatinine 1.37 H, Est GFR (MDRD) Af Amer 64, Est GFR (MDRD) Non-Af 53 L, BUN/Creatinine Ratio 24.1 H, Glucose 157 H, Calcium 9.5, B-Natriuretic Peptide 1553.4 H Rhythm: EKG: ECHO: Stress Test: Cardiac Cath: PCI: CT Surgery: Holter monitor: EPS: PPM: CXR: Chest CT Scan: Radiography Diagnostic Testing: Radiology Impression Chest X-Ray 07/01/23 12:55 IMPRESSION: Degenerative changes, as described above. No demonstrated acute cardiopulmonary process. Electronically Signed: Erlin Negrete MD at 13:35 EDT Reading Location ID and State: [facility] / [place] , Service support ,
[2023-07-01 16:46] LABS: Hemoglobin A1c 7.2 % (3.8-5.6)
[2023-07-01] MEDS: 0.9% Saline Lock 10 ML Syringe IV ×2 (17:11→19:44)
[2023-07-01] MEDS: Furosemide 40 MG/4 ML Vial IV (17:11)
[2023-07-01 17:33] LABS: Bedside Glucose 106 mg/dL (74-106)
[2023-07-01 17:40] LABS: International Normalized Ratio 1.7; Prothrombin Time (Protime)PT. 20.3 SECONDS (11.7-14.9)
[2023-07-01] MEDS: Carvedilol 12.5 MG Tablet PO (18:01)
[2023-07-01 19:41] LABS: Bacteria 0 SEEN /hpf (None Seen); Mucous, Urine 0 SEEN /hpf (<or=2+); Red Blood Cells-Urine 0 SEEN /hpf (0-5); Squamous Epithelial Cells - UA 0 SEEN /hpf (0-5); White Blood Cells 0 SEEN /hpf (0-5)
[2023-07-01] MEDS: dilTIAZem 25 MG/5 ML Vial 10 MG IV BOLUS (19:44)
[2023-07-01] MEDS: Diltiazem 125 MG in Dextrose 5%-Water (100mL Bag) 100 ML CONT INF (19:54)
[2023-07-01 20:03] LABS: Color, Urine Yellow (Yellow); Glucose, Dipstick Normal (Normal); Ketone-Dipstick Negative (Negative); Leukocyte Esterase-Dipstick Negative /ul (Negative); Nitrite-Dipstick Negative (Negative); Occult Blood-Urine Negative /ul (Negative); Protein-Dipstick Negative (Negative); Urine Bilirubin Dipstick Negative (Negative); Urine Clarity Clear (Clear); Urine Urobilinogen Normal (Normal)
[2023-07-01 20:21] LABS: Troponin-I HS 174 pg/mL (3.0-78.0)
[2023-07-01 21:57] LABS: Magnesium 1.5 mg/dL (1.6-2.6)
[2023-07-01] MEDS: APIXABAN 2.5 MG TABLET (WCH) PO (22:03)
[2023-07-01] MEDS: Lisinopril 20 MG Tablet PO (22:03)
[2023-07-01] MEDS: Atorvastatin Calcium 40 MG Tablet PO (22:03)
[2023-07-01 22:24] LABS: Bedside Glucose 201 mg/dL (74-106)
[2023-07-01] MEDS: Magnesium Sulfate 2 GM in Dextrose 5%-Water (100mL Bag) 100 ML IV (23:19)
[2023-07-02] VITALS (18 sets, daily range): BP systolic 90–133; BP diastolic 68–89; PULSE 65–89; RESP 15–26; TEMP 36.1–36.7; O2SAT 93–100; BMI 35.8
[2023-07-02] MEDS: Acetaminophen 325 MG Tablet 650 MG PO (01:24)
--- NOTE | 2023-07-02 06:03 | EKG12_ITS ---
Test Reason : RHYTHM CHANGE Blood Pressure : / mmHG Vent. Rate : 077 BPM Atrial Rate : 000 BPM P-R Int : 000 ms QRS Dur : 106 ms QT Int : 430 ms P-R-T Axes : 000 -38 176 degrees QTc Int : 486 ms Atrial fibrillation with premature ventricular or aberrantly conducted complexes Left axis deviation Minimal voltage criteria for LVH, may be normal variant ( Ramses product ) T wave abnormality, consider anterolateral ischemia Abnormal ECG Confirmed by Nghia Leos ([id number]), editor in chief newspaper HEAVENLY JUAREZ ([id number]) on 07/04/2023 12:59:56 PM Referred By: Nguyen Confirmed By:Nghia Leos
[2023-07-02] MEDS: Magnesium Sulfate 2 GM in Dextrose 5%-Water (100mL Bag) 100 ML IV (06:51)
[2023-07-02 06:53] LABS: Anion Gap 7 (5-15); BUN 40 mg/dL (7-18); BUN/Creat Ratio 30.5 RATIO (10-20); Calcium,Total 8.8 mg/dL (8.5-10.1); Chloride 106 mmol/L (98-107); Creatinine, Serum 1.31 mg/dL (0.70-1.30); EST Glomerular Filtration Rate 56 mL/min (>60); Est Glom Filt Rate - Afr Amer 68 mL/min (>60); Estimated Creatinine Clearance 45.91 ml/min; Glucose 169 mg/dL (74-106); Potassium 4.3 mmol/L (3.5-5.1); Sodium Level 137 mmol/L (136-145)
[2023-07-02] MEDS: Insulin Lispro 100 UNIT/ML INSULN.PEN SC ×3 (06:57→16:10)
--- NOTE | 2023-07-02 06:59 | PN.HOSP_ITS ---
Reason for Visit Reason for Visit: Shortness of breath Subjective Subjective Mr. Wise is an 83-year-old white male who presents to the emergency department at [facility] on 07/01/2023 with shortness of breath. He reported that he had noted increasing shortness of breath and lower extremity edema over the past several weeks prior to presentation. He reported he ran out of many of his medications a while ago. He indicated it could be months but he was not sure. Upon presentation he was also noted to be in atrial fibrillation with RVR. He had previously been following with cardiology however there is no outpatient visit noted since November 2021. He does have a known history of atrial fibrillation which was diagnosed in June 2018. He also has known sleep apnea and is compliant with CPAP at night. He does have a known history of CABG done in 2008 at which time he was noted to have high-grade left main disease and he had a GUAMAN to his LAD and an SVG to his ramus intermedius and circumflex. The emergency department he did receive IV metoprolol x 1 dose and heart rate did improve. The patient feels that he is gained about 10 pounds in weight. He was also given diuretics by the emergency department. He was asked why he ran out of his meds and did not get them refilled and he did not answer the question. Vital signs on presentation showed a temperature of 97.4, heart rate 121, blood pressure 106/75, respiratory was 20 and oxygen saturations were 98% room air. CBC showed mild anemia with hemoglobin of 12.8 but was otherwise unremarkable. Chemistry panel was overtly unremarkable and his serum creatinine was relatively stable when compared to previous. His glucose was 167. Hemoglobin A1c is 7.2. Initial troponin was 156 and BNP was 1553.4. Chest x-ray showed degenerative changes but no acute cardiopulmonary process. Cardiology was consulted and suspects he has a type II [place] with demand ischemia related to his heart failure and recommended ongoing diuretic therapy, repeat echocardiogram, and improved compliance as an outpatient with medication and follow-up. Patient states he is feeling better overall. Heart rate is controlled but he still in A-fib. Intermittent PVCs. Echocardiogram was done this morning and awaiting results. Patient states he was hopeful to go home today however I said we need to get a little more fluid off of him and make sure his heart rate is controlled on oral medications. He voiced understanding and was okay with staying another 24 hours. Objective Data Objective Data Vital Signs: Vital Signs Temp Pulse Resp BP Pulse Ox O2 Del Method O2 Flow Rate 97 F L 69 24 H 102/68 100 Room Air 2 07/02/23 06:08 07/02/23 06:08 07/02/23 06:08 07/02/23 06:08 07/02/23 06:08 07/02/23 06:08 07/02/23 04:26 Oxygen Flow Rate (L/min) 2 Oxygen Delivery Method Room Air Weight: 94.7 kg Body Mass Index (BMI) 35.8 Intake & Output: Intake and Output for Last 24 Hours 06/30/23 07/01/23 07/02/23 23:59 23:59 23:59 Intake Total 27.34 / 37.34 144 / 144 Balance 27.34 / 37.34 144 / 144 Lab / Micro Data 07/01/23 13:15 07/02/23 06:30 Labs: Laboratory Results - last 24 hr 07/01/23 13:15: WBC 9.4, RBC 4.66, Hgb 12.8 L, Hct 40.9, MCV 87.8, MCH 27.5, MCHC 31.3 L, RDW Std Deviation 51.8 H, RDW Coeff of Edwardo 16.3 H, Plt Count 281, MPV 9.9, Immature Gran % (Auto) 0.500, Neut % (Auto) 86.3 H, Lymph % (Auto) 4.6 L, [place] % (Auto) 6.7, Eos % (Auto) 1.3, Baso % (Auto) 0.6, Absolute Neuts (auto) 8.1 H, Absolute Lymphs (auto) 0.43 L, Nucleated RBC % 0, PT 20.3 H, INR 1.7, Sodium 139, Potassium 4.6, Chloride 108 H, Carbon Dioxide 23.0, Anion Gap 8, BUN 33 H, Creatinine 1.37 H, Estim Creat Clear Calc 44.81, Est GFR (MDRD) Af Amer 64, Est GFR (MDRD) Non-Af 53 L, BUN/Creatinine Ratio 24.1 H, Glucose 157 H, Calcium 9.5, Troponin I High Sens 156 H*, B-Natriuretic Peptide 1553.4 H 07/01/23 14:19: Troponin I High Sens 149 H* 07/01/23 16:12: Hemoglobin A1c 7.2 H 07/01/23 17:02: POC Glucose 106 07/01/23 19:30: Urine Color Yellow, Urine Clarity Clear, Urine pH 6.0, Ur Specific [place] 1.010, Urine Protein Negative, Urine Glucose (UA) Normal, Urine Ketones Negative, Urine Occult Blood Negative, Urine Nitrite Negative, Urine Bilirubin Negative, Urine Urobilinogen Normal, Ur Leukocyte Esterase Negative, Urine RBC 0 SEEN, Urine WBC 0 SEEN, Ur Squamous Epith Cells 0 SEEN, Urine Bacteria 0 SEEN, Urine Mucus 0 SEEN 07/01/23 19:40: Magnesium 1.5 L, Troponin I High Sens 174 H* 07/01/23 22:00: POC Glucose 201 H 07/02/23 06:30: Sodium 137, Potassium 4.3, Chloride 106, Carbon Dioxide 24.0, Anion Gap 7, BUN 40 H, Creatinine 1.31 H, Estim Creat Clear Calc 45.91, Est GFR (MDRD) Af Amer 68, Est GFR (MDRD) Non-Af 56 L, BUN/Creatinine Ratio 30.5 H, Glucose 169 H, Calcium 8.8 Radiography Diagnostic Testing: Radiology Impression Chest X-Ray 07/01/23 12:55 IMPRESSION: Degenerative changes, as described above. No demonstrated acute cardiopulmonary process. Electronically Signed: Erlin Negrete MD at 13:35 EDT Reading Location ID and State: [address] [place] [address] , Service support , Physical Exam Const alert, oriented x3, no apparent distress and well nourished; Negative for average body habitus Constitutional Narrative: Elderly, obese, white male, sitting up in bed, appears comfortable, nontoxic, on room air HEENT head/scalp atraumatic and moist oral mucous membranes HEENT Narrative: Dentures in place, Mallampati 2-3, no thrush Head and Scalp: normocephalic Resp normal respiratory effort, no retractions, no use of accessory muscles and clear to auscultation bilaterally Resp Narrative: Diffusely diminished but clear Auscultation: Negative for rales, rhonchi or wheezes Cardio regular rate, S1 normal heart sound, S2 normal heart sound, no murmurs, no rub, no gallops and no clicks Cardio Narrative: Irregular irregular rhythm GI normal to inspection, nondistended, normoactive bowel sounds, soft to palpation and non-tender Extremity Extremity Narrative: 2-3+ bilateral lower extremity pitting edema, no cyanosis or clubbing Neuro oriented x3, moves all extremities and no focal motor deficits Speech: speech normal Psych affect normal Psych Narrative: Interacts appropriately, very pleasant Assessment & Plan Assessment/Plan (1) CHF exacerbation: (2) Atrial fibrillation with RVR: PLAN: Plan Shortness of breath secondary to acute on chronic combined systolic and diastolic heart failure -Most recent echocardiogram from 2019 showed an EF of 45% -Repeat echocardiogram is pending -Continue IV diuretics with 40 mg IV push twice daily -Restart home Coreg -Continue home lisinopril -Start Jardiance 25 mg daily and will prescribe at discharge if able to get insurance to cover -If patient can tolerate well try to start some Aldactone -Fluid restriction -Daily weights -Sodium restriction -Cardiology is following-appreciate input -Patient was on oxygen but only for comfort and was not hypoxic. Atrial fibrillation with RVR -Patient has a known history of this -He stopped taking his medications -Discontinue Cardizem -Will replace him back on his home Coreg -Continue home apixaban at 2.5 mg p.o. twice daily with age and renal disease Troponin elevation -Cardiology feels that this is most likely due to type II NSTEMI related to decompensated atrial fibrillation with RVR and heart failure -Echocardiogram is pending -Continue home aspirin -Continue home statin Hypomagnesemia -2 g bolus -Repeat lab in a.m. CKD stage IIIa -Baseline serum creatinine appears to run between 1.2 and 1.4 -Currently 1.31 despite diuresis -Continue to monitor -Avoid nephrotoxins as able CAD/hyperlipidemia/hypertension/history of nonischemic cardiomyopathy -History of CABG in 2008 GUAMAN to his LAD, SVG to the ramus intermedius and circumflex -2016-NSTEMI with stenosis of the circumflex and medical management was recommended -Restart home atorvastatin -Restart home carvedilol -Continue lisinopril -Patient had previously been on isosorbide mononitrate and will restart if blood pressure allows with changes GERD -Continue home PPI DM-2 -Patient is on 6 units of regular insulin twice daily at home -Will likely start Jardiance if will be covered by insurance to help with heart failure and his diabetes -Control was not all that bad with a hemoglobin A1c of 7.2 DVT prophylaxis -Continue home Eliquis CODE STATUS -Full codeas verified on admission Charges/Coding Visit Charges Inpatient E&M: 92062 Subs Hosp L3
[2023-07-02] MEDS: Diltiazem 125 MG in Dextrose 5%-Water (100mL Bag) 100 ML 10 MG CONT INF (07:05)
[2023-07-02 07:18] LABS: Bedside Glucose 166 mg/dL (74-106)
[2023-07-02] MEDS: APIXABAN 2.5 MG TABLET (WCH) PO ×2 (08:29→22:13)
[2023-07-02] MEDS: Aspirin E.C. 81 MG Tablet PO (08:29)
[2023-07-02] MEDS: Pantoprazole Sodium 20 MG Tablet PO (08:29)
[2023-07-02] MEDS: 0.9% Saline Lock 10 ML Syringe IV ×3 (10:13→22:13)
[2023-07-02] MEDS: Furosemide 40 MG/4 ML Vial IV ×3 (10:13→22:13)
[2023-07-02] MEDS: Carvedilol 25 MG Tablet PO ×2 (10:13→22:13)
[2023-07-02 11:30] LABS: Bedside Glucose 191 mg/dL (74-106)
[2023-07-02] MEDS: Empagliflozin 25 MG Tablet PO (11:51)
--- NOTE | 2023-07-02 15:15 | CASEMGMT ---
RN DAVID GENERAL OPHTHALMOLOGIST CM to room to meet with patient for initial transition planning/care coordination assessment. MATTHEW HERNANDEZ introduced self and role at [facility]. Pt voices understanding and consents to assessment at this time. Pt resting in bed in no distress at this time. Pt is A/O at this time and answers all questions appropriately. Care providers, pharmacy, and demographics verified/updated at this time. PCP: Dr Obed Marinelli. He states he just saw him 06/06/23. Specialists: Dr Mocsoso (has not been in to see him in about 2 yrs). Used to see Dr Mcgrath, but states has not been in to see him in a long time. Preferred Pharmacy: [facility] @ d/c if they are open. Otherwise, [facility]ine [facility]ños Insurance: [facility] A [facility] B Prescription Benefit: Yes. Pt states he ran out of the meds awhile ago that were prescribed @ [facility] and also was out of refills. He states he does not know why he did not contact/follow-up w/cardiology for refills, stating, I don't know why I didn't. I guess you'd call it stupid, but states he plans to f/u after d/c. Living Will/HPOA: does not have LW or HCPOA . Questions answered. Pt states he wishes to think about this and may be interested in completing this. He was made aware, if he is still in the hospital on Tuesday, that SW can f/u with him at that time. Educated patient that, if he does not complete AD while @ [facility] that he can come back to [facility] and meet with a SW as an outpatient to complete health care advanced directives. Patient expresses understanding. LNOK: Niece, Flory, is listed as LNOK and he states to also add his friend, Ana Huerta, to contact list. He states he has one living sibling: sister, Lilli Campos. Pt states they have not kept in contact and he has not spoken w/her for about a year and it was @ their brother's . He states he has heard her health is not well and he does not think she would be able to make decisions, but he is not sure. He is not , does not have any children and his parents are . He states he has about 20 nieces/nephews. Living Arrangements: Lives alone in one-story home w/no steps to enter. Independent w/ADL's and IADL's and manages his own medications. Transportation: Pt states drives self and states no transportation concerns at this time. States he is not sure who will take him home @ discharge, but his friend, Ana Huerta, may be available. DME: States has the following DME: CPAP (got through [facility]). He will check w/his friend to see if they can bring it in to use tonight. Has cane but does not use. No home O2. Pt states no need for further DME at this time. HHC/SNF: Has used HHC agency in the past after bypass, but does not remember name. Hx being @ [facility]. Denies need for HHC. Discussed CCN and pt interested in this. Referral placed. Pt wishes to return home and states has no concerns with going home at time of discharge. CM to follow for any further discharge planning/needs. Pt voices no further concerns/needs at this time. Advised pt to ask for CM if any further questions/concerns/needs arise. Voices understanding. PLAN: Home w/CCN referral. Andre MCNAIR RN CM
--- NOTE | 2023-07-02 15:28 | PCM.PN.CARD ---
Subjective Subjective Abdominal swelling and lower extremity edema improving Feeling better on current treatment Objective Data Vital Signs: Vital Signs Temp Pulse Resp BP Pulse Ox O2 Del Method O2 Flow Rate 97.8 F 78 18 133/89 H 94 Room Air 2 07/02/23 11:53 07/02/23 11:53 07/02/23 11:53 07/02/23 11:53 07/02/23 11:53 07/02/23 11:53 07/02/23 07:15 Oxygen Flow Rate (L/min) 2 Oxygen Delivery Method Room Air Weight: 208 lb 12.444 oz Body Mass Index (BMI) 35.8 Intake & Output: Intake and Output for Last 24 Hours 06/30/23 07/01/23 07/02/23 23:59 23:59 23:59 Intake Total 27.34 / 37.34 986.33 / 986.33 Balance 27.34 / 37.34 986.33 / 986.33 Lab / Micro Data 07/01/23 13:15 07/02/23 06:30 Labs: Laboratory Results - last 24 hr 07/01/23 13:15: PT 20.3 H, INR 1.7 07/01/23 16:12: Hemoglobin A1c 7.2 H 07/01/23 17:02: POC Glucose 106 07/01/23 19:30: Urine Color Yellow, Urine Clarity Clear, Urine pH 6.0, Ur Specific [place] 1.010, Urine Protein Negative, Urine Glucose (UA) Normal, Urine Ketones Negative, Urine Occult Blood Negative, Urine Nitrite Negative, Urine Bilirubin Negative, Urine Urobilinogen Normal, Ur Leukocyte Esterase Negative, Urine RBC 0 SEEN, Urine WBC 0 SEEN, Ur Squamous Epith Cells 0 SEEN, Urine Bacteria 0 SEEN, Urine Mucus 0 SEEN 07/01/23 19:40: Magnesium 1.5 L, Troponin I High Sens 174 H* 07/01/23 22:00: POC Glucose 201 H 07/02/23 06:30: Sodium 137, Potassium 4.3, Chloride 106, Carbon Dioxide 24.0, Anion Gap 7, BUN 40 H, Creatinine 1.31 H, Estim Creat Clear Calc 45.91, Est GFR (MDRD) Af Amer 68, Est GFR (MDRD) Non-Af 56 L, BUN/Creatinine Ratio 30.5 H, Glucose 169 H, Calcium 8.8 07/02/23 06:56: POC Glucose 166 H 07/02/23 11:11: POC Glucose 191 H Cardiology Labs/Tests 07/01/23 13:15: PT 20.3 H, INR 1.7 07/01/23 16:12: Hemoglobin A1c 7.2 H 07/01/23 19:30: Urine Color Yellow, Urine Clarity Clear, Urine pH 6.0, Ur Specific [place] 1.010, Urine Protein Negative, Urine Glucose (UA) Normal, Urine Ketones Negative, Urine Occult Blood Negative, Urine Nitrite Negative, Urine Bilirubin Negative, Urine Urobilinogen Normal, Ur Leukocyte Esterase Negative, Urine RBC 0 SEEN, Urine WBC 0 SEEN 07/01/23 19:40: Magnesium 1.5 L 07/02/23 06:30: Sodium 137, Potassium 4.3, Chloride 106, Carbon Dioxide 24.0, Anion Gap 7, BUN 40 H, Creatinine 1.31 H, Est GFR (MDRD) Af Amer 68, Est GFR (MDRD) Non-Af 56 L, BUN/Creatinine Ratio 30.5 H, Glucose 169 H, Calcium 8.8 Rhythm: EKG: ECHO: Stress Test: Cardiac Cath: PCI: CT Surgery: Holter monitor: EPS: PPM: CXR: Chest CT Scan: Radiography Diagnostic Testing: Radiology Impression Echocardiogram 07/01/23 15:46 Interpretation Summary The estimated ejection fraction is 25-30 %. Worsening of LV systolic function In comparison to previous echo in 2019 between 2 bracket EF was 45% Now the ejection fraction in the range of 25-30% Severe global LV hypokinesia. Moderate biatrial enlargement Moderate MR Trivial PI No pericardial effusion. Contrast echo used/d Definity Ordering Physician: Obed Cummings Referring Physician: OBED JOSEPH Performed By: Krissy Uribe RCS Physical Exam Cardio Cardio Narrative: Review of the wind up operator showed A-fib, controlled ventricular rate, frequent PVCs with ventricular bigeminy Jugular venous pressure mildly elevated Card exam S1-S2 is regular No systolic or diastolic murmur Chest exam diminished air entry bilateral Examination lower extremity improvement in lower extremity edema/2?3.. Assessment & Plan Assessment/Plan (1) Chronic combined systolic and diastolic CHF (congestive heart failure): (2) Secondary pulmonary arterial hypertension: (3) Hyperlipidemia: QUALIFIERS: Hyperlipidemia type: pure hypercholesterolemia Qualified Code(s): E78.00 - Pure hypercholesterolemia, unspecified; E78.0 - Pure hypercholesterolemia PLAN: Plan 83-year-old patient with extensive cardiac history Patient had history of CAD with previous non-STEMI In September 16, 2008 Patient has CABG with the following GUAMAN to LAD, SVG to ramus, SVG to left circumflex Also has paroxysmal atrial fibrillation and has been on anticoagulation Patient was noncompliant with clinical follow-up last time he was seen by the cardiology Was in 2021 And also he was of his medication This admission patient has progressive shortness of breath does not have any active chest pain. And he came with remarkable lower extremity edema bilateral in addition to abdominal swelling. Started on treatment with diuretic with monitoring electrolytes. And resume his cardiac medication. Including anticoagulation with Eliquis. On review of the echocardiogram noted his LV function was worse from previous with ejection fraction now 25-30% has contrast echocardiogram. Also has moderate aortic insufficiency which is functional MR Has significant elevated BNP with a clinical diagnosis acute on chronic worsening systolic/diastolic heart failure With paroxysmal A-fib and moderate mitral regurgitation Cardiac care plan recommendations; I discussed in detail the cardiac care plan and the medication with the patient and nursing staff Will continue to monitor and follow-up clinically Recommend a LifeVest which can be set up as an outpatient Recommend compliance with medication/guideline directed medical therapy for acute on chronic systolic heart failure with ischemic cardiomyopathy. As well continuation on anticoagulation and follow-up with the cardiology team as an outpatient. Koko Azar MD,FACC,[facility]
[2023-07-02 16:37] LABS: Bedside Glucose 216 mg/dL (74-106)
[2023-07-02] MEDS: Lisinopril 20 MG Tablet PO (22:13)
[2023-07-02] MEDS: Atorvastatin Calcium 40 MG Tablet PO (22:13)
[2023-07-02 22:41] LABS: Bedside Glucose 172 mg/dL (74-106)
[2023-07-03 04:30] VITALS: BP 106/67; PULSE 80; RESP 16; TEMP 36; O2SAT 97
[2023-07-03 06:00] VITALS: BMI 35.6
[2023-07-03 06:28] LABS: Hematocrit 36.9 % (40-54); Hemoglobin 11.7 g/dL (13.0-16.5); Mean Corp Hgb Conc 31.7 g/dL (32-36); Mean Corpuscular Hgb 27.3 pg (27.0-32.0); Mean Corpuscular Volume 86.2 fL (80-94); Mean Platelet Vol. 10.1 fl (6.2-12.0); Platelet Count 230 K/mm3 (150-450); RBC Distribution Width CV 16.1 % (11.6-14.6); RBC Distribution Width SD 49.9 fl (35.1-43.9); Red Blood Count 4.28 M/mm3 (4.6-6.2); White Blood Count 6.3 K/mm3 (4.4-11.0)
[2023-07-03] MEDS: Furosemide 40 MG/4 ML Vial IV ×3 (06:28→21:22)
[2023-07-03] MEDS: 0.9% Saline Lock 10 ML Syringe IV ×2 (06:28→21:22)
[2023-07-03 06:50] LABS: Bedside Glucose 149 mg/dL (74-106)
[2023-07-03 07:09] LABS: Anion Gap 8 (5-15); BUN 46 mg/dL (7-18); BUN/Creat Ratio 32.6 RATIO (10-20); Calcium,Total 8.9 mg/dL (8.5-10.1); Chloride 105 mmol/L (98-107); Creatinine, Serum 1.41 mg/dL (0.70-1.30); EST Glomerular Filtration Rate 51 mL/min (>60); Est Glom Filt Rate - Afr Amer 62 mL/min (>60); Estimated Creatinine Clearance 42.54 ml/min; Glucose 151 mg/dL (74-106); Magnesium 1.9 mg/dL (1.6-2.6); Phosphorus 4.5 mg/dL (2.5-4.9); Potassium 4.1 mmol/L (3.5-5.1); Sodium Level 136 mmol/L (136-145); Thyroid Stim Hormone (TSH) 1.49 uIU/mL (0.358-3.74)
[2023-07-03 09:42] VITALS: BP 97/71; PULSE 88; RESP 18; TEMP 36.4; O2SAT 93
[2023-07-03] MEDS: Pantoprazole Sodium 20 MG Tablet PO (09:48)
[2023-07-03] MEDS: Aspirin E.C. 81 MG Tablet PO (09:48)
[2023-07-03] MEDS: APIXABAN 2.5 MG TABLET (WCH) PO ×2 (09:48→21:22)
[2023-07-03] MEDS: Carvedilol 25 MG Tablet PO ×2 (09:48→21:23)
[2023-07-03] MEDS: Empagliflozin 25 MG Tablet PO (09:49)
[2023-07-03 10:56] VITALS: BP 106/66; PULSE 79; RESP 16; TEMP 36.4; O2SAT 95
[2023-07-03] MEDS: Insulin Lispro 100 UNIT/ML INSULN.PEN SC ×2 (11:09→17:04)
[2023-07-03 11:31] LABS: Bedside Glucose 184 mg/dL (74-106)
--- NOTE | 2023-07-03 11:37 | PN.HOSP_ITS ---
Reason for Visit Reason for Visit: Shortness of breath Subjective Subjective Patient states he is feeling better overall. Still complains of some mild shortness of breath with exertion. Heart rates have been better. Legs are still puffy. Will plan on 1 more day of IV diuretics and then likely transition to orals with discharge tomorrow. Objective Data Objective Data Vital Signs: Vital Signs Temp Pulse Resp BP Pulse Ox O2 Del Method O2 Flow Rate 97.6 F L 79 16 106/66 95 Room Air 2 07/03/23 10:56 07/03/23 10:56 07/03/23 10:56 07/03/23 10:56 07/03/23 10:56 07/03/23 10:56 07/02/23 07:15 Oxygen Flow Rate (L/min) 2 Oxygen Delivery Method Room Air Weight: 94.2 kg Body Mass Index (BMI) 35.6 Intake & Output: Intake and Output for Last 24 Hours 07/01/23 07/02/23 07/03/23 23:59 23:59 23:59 Intake Total 27.34 / 37.34 1581.33 / 1581.33 120 / 120 Output Total 750 / 750 650 / 650 Balance 27.34 / 37.34 831.33 / 831.33 -530 / -530 Lab / Micro Data 07/03/23 05:59 07/03/23 05:59 Labs: Laboratory Results - last 24 hr 07/02/23 16:09: POC Glucose 216 H 07/02/23 22:16: POC Glucose 172 H 07/03/23 05:59: WBC 6.3, RBC 4.28 L, Hgb 11.7 L, Hct 36.9 L, MCV 86.2, MCH 27.3, MCHC 31.7 L, RDW Std Deviation 49.9 H, RDW Coeff of Edwardo 16.1 H, Plt Count 230, MPV 10.1, Sodium 136, Potassium 4.1, Chloride 105, Carbon Dioxide 23.0, Anion Gap 8, BUN 46 H, Creatinine 1.41 H, Estim Creat Clear Calc 42.54, Est GFR (MDRD) Af Amer 62, Est GFR (MDRD) Non-Af 51 L, BUN/Creatinine Ratio 32.6 H, Glucose 151 H, Calcium 8.9, Phosphorus 4.5, Magnesium 1.9, TSH 1.49 07/03/23 06:29: POC Glucose 149 H 07/03/23 11:08: POC Glucose 184 H Radiography Diagnostic Testing: Radiology Impression Echocardiogram 07/01/23 15:46 Interpretation Summary The estimated ejection fraction is 25-30 %. Worsening of LV systolic function In comparison to previous echo in 2019 between 2 bracket EF was 45% Now the ejection fraction in the range of 25-30% Severe global LV hypokinesia. Moderate biatrial enlargement Moderate MR Trivial PI No pericardial effusion. Contrast echo used/d Definity Ordering Physician: Vijay Cummings Referring Physician: VIJAY JOSEPH Performed By: Krissy Uribe RCS Physical Exam Const alert, oriented x3, no apparent distress and well nourished; Negative for av erage body habitus Constitutional Narrative: Elderly, obese, white male, sitting up in bed, appears comfortable, nontoxic, on room air, watching television General Appearance: cooperative HEENT normocephalic, head/scalp atraumatic and moist oral mucous membranes HEENT Narrative: Mallampati is 2-3, no thrush Eyes Eyes Narrative: No icterus. Positive glasses. Resp normal respiratory effort, no retractions, no use of accessory muscles and clear to auscultation bilaterally Resp Narrative: Diffusely diminished but clear Auscultation: Negative for rales, rhonchi or wheezes Cardio regular rate, S1 normal heart sound, S2 normal heart sound, no murmurs, no rub, no gallops and no clicks Cardio Narrative: Irregular irregular rhythm GI normal to inspection, nondistended, normoactive bowel sounds, soft to palpation and non-tender Extremity Extremity Narrative: 2 bilateral lower extremity pitting edema, no cyanosis or clubbing Neuro oriented x3, moves all extremities and no focal motor deficits Speech: speech normal Psych affect normal Psych Narrative: Interacts appropriately, very pleasant Assessment & Plan Assessment/Plan (1) CHF exacerbation: (2) Atrial fibrillation with RVR: PLAN: Plan Shortness of breath secondary to acute on chronic combined systolic and diastolic heart failure -Most recent echocardiogram from 2019 showed an EF of 45% -Echocardiogram from 07/02/2023 showed an EF of 25 to 30% with globally severe LV hypokinesis and moderate biatrial enlargement along with moderate MR and trivial PI and no pericardial effusion -Wondering if this is related to not being on goal-directed therapy at home and 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 as well -Will need repeat echocardiogram as an outpatient after being on goal- directed therapy -Continue IV diuretics with 40 mg IV push twice daily for another 24 hours and likely transition to oral with discharge tomorrow -Continue Coreg 25 mg twice daily -Continue home lisinopril -Continue Jardiance and will plan to discharge on this if insurance covers -Will hold off on adding Aldactone at this point and have him follow-up with cardiology and have them add it if he can tolerate -Add bilateral lower extremity Isac wrap's -Continue fluid restriction -Continue Daily weights -Continue sodium restriction -Cardiology is following-appreciate input -Patient is not currently requiring any oxygen at rest or with exertion Atrial fibrillation with RVR -Patient has a known history of this -He stopped taking his medications -Home Coreg reinitiated yesterday and his heart rates are well-controlled but he does remain in A-fib -I suspect this will likely be persistent -Continue home apixaban at 2.5 mg p.o. twice daily with age and renal disease Troponin elevation -Cardiology feels that this is most likely due to type II NSTEMI related to deco mpensated atrial fibrillation with RVR and heart failure -Echocardiogram as noted above -Continue home aspirin -Continue home statin Hypomagnesemia - resolved CKD stage IIIa -Baseline serum creatinine appears to run between 1.2 and 1.4 -Currently 1.41 with mild jump with diuretics -IV diuretics for another 24 hours and anticipate transition to oral tomorrow with discharge -Continue to monitor -Avoid nephrotoxins as able CAD/hyperlipidemia/hypertension/history of nonischemic cardiomyopathy -History of CABG in 2008 GUAMAN to his LAD, SVG to the ramus intermedius and circumflex -2016-NSTEMI with stenosis of the circumflex and medical management was recommended -Continue atorvastatin -Continue carvedilol -Continue lisinopril -Patient had previously been on isosorbide mononitrate and will restart if blood pressure allows with changes GERD -Continue home PPI DM-2 -Patient is on 6 units of regular insulin twice daily at home -Will likely start Jardiance if will be covered by insurance to help with heart failure and his diabetes -Control was not all that bad with a hemoglobin A1c of 7.2 DVT prophylaxis -Continue home Eliquis CODE STATUS -Full code as verified on admission Disposition -Will push for a bit more fluid removal as his legs are still somewhat swollen and plan for discharge in the next 24 hours to home with new prescriptions needed for his home medications. I have asked the certified legal secretary specialist to leave a note to schedule a follow-up cardiology appointment for 1 to 2 weeks after discharge tomorrow. Charges/Coding Visit Charges Inpatient E&M: 60879 Subs Hosp L2
[2023-07-03 15:38] VITALS: BP 100/63; PULSE 88; RESP 16; TEMP 35.9; O2SAT 95
--- NOTE | 2023-07-03 16:08 | PN.CARD_ITS ---
Subjective Subjective Feeling better and improving on the current treatment with IV diuretic Still has bilateral lower extremities for Objective Data Vital Signs: Vital Signs Temp Pulse Resp BP Pulse Ox O2 Del Method O2 Flow Rate 96.7 F L 88 16 100/63 95 Room Air 2 07/03/23 15:38 07/03/23 15:38 07/03/23 15:38 07/03/23 15:38 07/03/23 15:38 07/03/23 15:38 07/02/23 07:15 Oxygen Flow Rate (L/min) 2 Oxygen Delivery Method Room Air Weight: 207 lb 10.807 oz Body Mass Index (BMI) 35.6 Intake & Output: Intake and Output for Last 24 Hours 07/01/23 07/02/23 07/03/23 23:59 23:59 23:59 Intake Total 27.34 / 37.34 1581.33 / 1581.33 120 / 120 Output Total 750 / 750 650 / 650 Balance 27.34 / 37.34 831.33 / 831.33 -530 / -530 Lab / Micro Data 07/03/23 05:59 07/03/23 05:59 Labs: Laboratory Results - last 24 hr 07/02/23 16:09: POC Glucose 216 H 07/02/23 22:16: POC Glucose 172 H 07/03/23 05:59: WBC 6.3, RBC 4.28 L, Hgb 11.7 L, Hct 36.9 L, MCV 86.2, MCH 27.3, MCHC 31.7 L, RDW Std Deviation 49.9 H, RDW Coeff of Edwardo 16.1 H, Plt Count 230, MPV 10.1, Sodium 136, Potassium 4.1, Chloride 105, Carbon Dioxide 23.0, Anion Gap 8, BUN 46 H, Creatinine 1.41 H, Estim Creat Clear Calc 42.54, Est GFR (MDRD) Af Amer 62, Est GFR (MDRD) Non-Af 51 L, BUN/Creatinine Ratio 32.6 H, Glucose 151 H, Calcium 8.9, Phosphorus 4.5, Magnesium 1.9, TSH 1.49 07/03/23 06:29: POC Glucose 149 H 07/03/23 11:08: POC Glucose 184 H Cardiology Labs/Tests 07/03/23 05:59: WBC 6.3, RBC 4.28 L, Hgb 11.7 L, Hct 36.9 L, MCV 86.2, MCH 27.3, MCHC 31.7 L, Plt Count 230, MPV 10.1, Sodium 136, Potassium 4.1, Chloride 105, Carbon Dioxide 23.0, Anion Gap 8, BUN 46 H, Creatinine 1.41 H, Est GFR (MDRD) Af Amer 62, Est GFR (MDRD) Non-Af 51 L, BUN/Creatinine Ratio 32.6 H, Glucose 151 H, Calcium 8.9, Phosphorus 4.5, Magnesium 1.9 Rhythm: EKG: ECHO: Stress Test: Cardiac Cath: PCI: CT Surgery: Holter monitor: EPS: PPM: CXR: Chest CT Scan: Physical Exam Cardio Cardio Narrative: Underlying cardiac rhythm is A-fib controlled ventricular rate Cardiac exam comfortable lying in bed jugular venous pressure not elevated S1-S2 is irregular Chest exam mild diminished air entry bilateral Abdomen soft mildly distended Examination lower extremity +2?+3 lower extremity edema. Assessment & Plan Assessment/Plan (1) Chronic anticoagulation: (2) Chronic combined systolic and diastolic CHF (congestive heart failure): (3) H/O coronary artery bypass surgery: (4) Atrial fibrillation with RVR: (5) Essential (primary) hypertension: (6) Hyperlipidemia: QUALIFIERS: Hyperlipidemia type: pure hypercholesterolemia Qualified Code(s): E78.00 - Pure hypercholesterolemia, unspecified; E78.0 - Pure hypercholesterolemia (7) Secondary pulmonary arterial hypertension: PLAN: 83-year-old patient with severe ischemic cardiomyopathy Worsening of LV systolic function noted with ejection fraction in the range of 25 to 30% Prior evaluation in 2019 the EF was around 45 Patient had history of CAD Severe multivessel coronary artery disease with a bypass surgery GUAMAN to LAD, SVG to left circumflex and SVG to ramus. Patient was noncompliant with follow-up with the cardiology team as well noncompliant with medication he ran out of medication He was on anticoagulation with Eliquis for paroxysmal A-fib On this admission his presentation is with acute on chronic decompensated systolic and diastolic heart failure Responding well to the current treatment with Lasix Cardiac care plan recommendations; Will start on guideline directed medical therapy/GDMT Continue on the diuretic monitor electrolytes renal function Resume anticoagulation with Eliquis Follow-up with cardiology team at [facility] for continuation of cardiac care Set up for LifeVest as an outpatient. Koko Azar MD,FACC,[facility]
[2023-07-03 16:19] LABS: Bedside Glucose 172 mg/dL (74-106)
[2023-07-03] MEDS: Lisinopril 20 MG Tablet PO (21:22)
[2023-07-03] MEDS: Atorvastatin Calcium 40 MG Tablet PO (21:23)
[2023-07-03 21:30] VITALS: BP 122/82; PULSE 89; RESP 18; TEMP 36.2; O2SAT 95
[2023-07-04 00:35] LABS: Bedside Glucose 168 mg/dL (74-106)
[2023-07-04 04:49] VITALS: BP 94/68; PULSE 88; RESP 18; TEMP 37; O2SAT 95
[2023-07-04 05:38] VITALS: BMI 34.2
[2023-07-04 06:50] LABS: Bedside Glucose 157 mg/dL (74-106)
[2023-07-04 07:08] LABS: Hemoglobin 11.3 g/dL (13.0-16.5); Mean Corp Hgb Conc 31.4 g/dL (32-36); Mean Corpuscular Hgb 27.4 pg (27.0-32.0); Mean Corpuscular Volume 87.4 fL (80-94); Mean Platelet Vol. 9.7 fl (6.2-12.0); Platelet Count 223 K/mm3 (150-450); RBC Distribution Width CV 15.9 % (11.6-14.6); RBC Distribution Width SD 50.7 fl (35.1-43.9); Red Blood Count 4.12 M/mm3 (4.6-6.2)
[2023-07-04 07:42] LABS: Anion Gap 7 (5-15); BUN 52 mg/dL (7-18); BUN/Creat Ratio 32.1 RATIO (10-20); Calcium,Total 9.2 mg/dL (8.5-10.1); Chloride 103 mmol/L (98-107); Creatinine, Serum 1.62 mg/dL (0.70-1.30); EST Glomerular Filtration Rate 44 mL/min (>60); Est Glom Filt Rate - Afr Amer 53 mL/min (>60); Estimated Creatinine Clearance 36.24 ml/min; Glucose 159 mg/dL (74-106); Potassium 4.3 mmol/L (3.5-5.1); Sodium Level 138 mmol/L (136-145)
[2023-07-04 09:53] VITALS: BP 101/90; PULSE 95; RESP 16; TEMP 36.4; O2SAT 98
[2023-07-04] MEDS: Pantoprazole Sodium 20 MG Tablet PO (09:56)
[2023-07-04] MEDS: Carvedilol 25 MG Tablet PO (09:57)
[2023-07-04] MEDS: Aspirin E.C. 81 MG Tablet PO (09:57)
[2023-07-04] MEDS: Empagliflozin 25 MG Tablet PO (09:57)
[2023-07-04] MEDS: APIXABAN 2.5 MG TABLET (WCH) PO (09:57)
[2023-07-04] MEDS: Insulin Lispro 100 UNIT/ML INSULN.PEN SC ×2 (11:34→16:31)
[2023-07-04 11:54] LABS: Bedside Glucose 176 mg/dL (74-106)
--- NOTE | 2023-07-04 12:03 | DCINST_ITS ---
Discharge Instructions Diet Discharge Diet: Low fat / Low cholesterol Activity Discharge Activity: Return to Normal Activity Weight Bearing Status: Weight bearing as tolerated Dressing / Incision Call your doctor if you observe: Fever of 101 or Higher, Shortness of breath, Dizziness, Swelling in the ankles and Chest pain Follow Up Care Test Results: Test results from this visit will be discussed in further detail at your follow- up appointment, if applicable. Discharge Plan Admission Admit Date/Time: 07/01/23 15:16 Primary Reason for Your Visit: acute exacerbation of heart failure Attending Provider: Sri De La Torre Primary Care Provider: Obed Marinelli Consulting Providers: Koko Azar; Obed Cummings; Niurka Hancock Instructions Patient Instructions: Coping with Heart Failure Additional Instructions / Restrictions: Follow-up with PCP for BMP to be done in 2 to 3 days to check on kidney function. Discharge Orders/Prescriptions Prescriptions: New Jardiance 25 mg Tablet 25 mg PO DAILY Qty: 30 2RF Continued potassium citrate 5 mEq (540 mg) tablet extended release 5 meq PO DAILY 90 Days Qty: 90 lisinopril 20 MG tablet 20 mg PO QHS Patient Comments: BLOOD PRESSURE insulin regular human 100 UNIT/ML solution 6 unit IM BID Patient Comments: DIABETES, take with breakfast and dinner PT STATES HE USES 6-7 UNITS BID omeprazole 20 MG capsule 20 mg PO DAILY Patient Comments: REFLUX cholecalciferol (vitamin D3) 2,000 UNIT capsule 2,000 unit PO DAILY Patient Comments: Supplement Cranberry 1 tab PO DAILY Patient Comments: URINARY HEALTH aspirin 81 MG tablet,delayed release (DR/EC) 81 mg PO DAILY Qty: 0 0RF Patient Comments: PREVENTATIVE HEART AND STROKE cinnamon bark 500 MG capsule 500 mg PO DAILY albuterol sulfate 1 INHALER inhaler 2 puff Inhalation Q4H PRN Qty: 1 0RF nitroglycerin 0.4 mg tablet, sublingual 0.4 mg SUBLINGUAL Q5M PRN (Reason: Chest Pain) Qty: 1 0RF Rx Instructions: Place one tab under tongue every 5 minutes x 3 doses as needed carvedilol 25 mg tablet 25 mg PO BID Qty: 180 3RF Patient Comments: heart rate/blood pressure atorvastatin 40 mg tablet 40 mg PO DAILY Qty: 90 3RF isosorbide mononitrate 60 mg tablet extended release 24 hr 60 mg PO DAILY Qty: 90 3RF Patient Comments: Chest pain magnesium oxide 400 mg (241.3 mg magnesium) tablet 400 mg PO DAILY Qty: 90 3RF apixaban 2.5 mg tablet 2.5 mg PO BID Qty: 60 11RF Changed furosemide 40 mg tablet 40 mg PO DAILY Qty: 30 2RF Referrals / Follow Up: Obed Marinelli MD [Primary Care Provider] - Within 1 Week Zenaida Akbar NP, [employer] TENDER-C [Non-Staff -Ordering Privileges] - 07/15/23 9:30 am Disposition Disposition (needs filled in before D/C Order can be placed): Home, Self Care
--- NOTE | 2023-07-04 12:03 | PCM.DC.SUM ---
Providers Date of Admission: 07/01/23 Date of Discharge: 07/04/23 Primary Care Physician: Dr. Obed Marinelli MD Consultations 07/01/23 15:46 Consult: Cardiology Routine Consulting Provider: Koko Azar Reason for Consult: CHF. 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 (2) Chronic combined systolic and diastolic CHF (congestive heart failure): Status: Chronic Code(s): I50.42 - Chronic combined systolic (congestive) and diastolic (congestive) heart failure (3) H/O coronary artery bypass surgery: Status: Resolved Code(s): Z95.1 - Presence of aortocoronary bypass graft (4) Atrial fibrillation with RVR: Status: Acute Code(s): I48.91 - Unspecified atrial fibrillation (5) Essential (primary) hypertension: Status: Chronic Code(s): I10 - Essential (primary) hypertension (6) Hyperlipidemia: Status: Chronic Code(s): E78.5 - Hyperlipidemia, unspecified Qualifiers: Hyperlipidemia type: pure hypercholesterolemia Qualified Code(s): E78.00 - Pure hypercholesterolemia, unspecified; E78.0 - Pure hypercholesterolemia (7) Secondary pulmonary arterial hypertension: Status: Chronic Code(s): I27.21 - Secondary pulmonary arterial hypertension Medications at Discharge Home Medications Cranberry 1 tab PO DAILY Supplement 03/18/16 cholecalciferol (vitamin D3) 50 mcg (2,000 unit) capsule 2,000 unit PO DAILY Supplement 03/18/16 insulin regular human 100 unit/mL injection solution 6 unit IM BID Diabetes 03/18/16 aspirin 81 mg tablet,delayed release 81 mg PO DAILY heart health ##0 07/12/17 cinnamon bark 500 mg capsule 500 mg PO DAILY supplement 06/27/18 albuterol sulfate 90 mcg/actuation aerosol inhaler 2 puff inhalation Q4H PRN breathing ##1 06/29/18 potassium citrate 5 mEq (540 mg) tablet,extended release 5 meq PO DAILY suppllement 90 days #90 tabs 11/11/21 apixaban 2.5 mg tablet 2.5 mg PO BID blood thinner #60 tabs 04/06/22 atorvastatin 40 mg tablet 40 mg PO DAILY cholesterol #30 tabs 07/04/23 carvedilol 25 mg tablet 25 mg PO BID blood pressure #60 tabs 07/04/23 furosemide 40 mg tablet 40 mg PO DAILY edema #30 tabs 07/04/23 isosorbide mononitrate 60 mg tablet,extended release 24 hr 60 mg PO DAILY heart #30 tabs 07/04/23 lisinopril 20 mg tablet 20 mg PO QHS blood pressure #30 tabs 07/04/23 magnesium oxide 400 mg (241.3 mg magnesium) tablet 400 mg PO DAILY supplement #30 tabs 07/04/23 nitroglycerin 0.4 mg sublingual tablet 0.4 mg sublingual Q5M PRN Chest Pain #30 tabs 07/04/23 omeprazole 20 mg capsule,delayed release 20 mg PO DAILY reflux #30 caps 07/04/23 Hospital Course Operations None Procedures None Summary of Care Provided Minutes Spent on Discharge: 48 Hospital Course: Patient is an 83-year-old male with a past medical history as outlined with admitted through the ED on 07/01/2023 with a complaint of shortness of breath. He had a still lower extremity edema which have been going on for several weeks. He had run out of many of his medications including his carvedilol and Lasix. On admission he was found to be in A-fib with RVR. He was given a dose of IV Lopressor and his heart rate improved. Due to his lower extremity edema he was also admitted and managed for acute on chronic exacerbation of heart failure with preserved ejection fraction. He had not been taking his Lasix as he had run out. He was started on IV Lasix. He was also managed for A-fib with RVR. His medications were resumed and patient felt much better. He was continued on his Eliquis as well. 2D echo done during this admission showed EF of 25 to 30% with globally severe left ventricular hypokinesis and moderate biatrial enlargement along with moderate mitral valve regurgitation and moderate tricuspid valve regurgitation. Jardiance was added onto his medications but patient could not afford it as it was not prescribed on outpatient basis. Cardiology was consulted and did see patient. Patient's shortness of breath improved and he felt much better. He was discharged on 07/04/2023. He was discharged on p.o. Lasix as well as p.o. Eliquis and carvedilol. He was given a refill of his medications. He was to follow-up with cardiology on outpatient basis for evaluation for LifeVest. Patient seen and examined prior to discharge. He had no active complaints. Review of systems otherwise negative. Labs and vitals reviewed. Medication reviewed and reconciled. Physical Exam Const alert, oriented x3, no apparent distress and average body habitus General Appearance: cooperative, comfortable and well kempt Orientation / Consciousness: awake Exam Limitations: no limitations HEENT normocephalic, head/scalp atraumatic, hearing grossly normal bilaterally and moist oral mucous membranes Mouth: oral and palatal mucosa normal Neck no lymphadenopathy and supple Resp normal respiratory effort, no retractions, no use of accessory muscles and clear to auscultation bilaterally Cardio regular rate, regular rhythm, S1 normal heart sound, S2 normal heart sound and no murmurs GI normal to inspection, nondistended, normoactive bowel sounds, soft to palpation, non-tender and non-distended Extremity normal to inspection, full ROM and no clubbing, cyanosis or edema Skin no rashes or lesions noted and no wounds Neuro oriented x3, CN's II-XII intact bilaterally, moves all extremities and no focal motor deficits Sensorium / Orientation: awake and alert Motor Exam: strength 5/5 throughout Psych affect normal Weight / BMI Weight Weight: 199 lb 1.239 oz Body Mass Index (BMI) 34.2 ABG / Lab / Microbiology Data 07/04/23 06:45 07/04/23 06:45 Laboratory: Laboratory Results - last 24 hr 07/03/23 15:58: POC Glucose 172 H 07/03/23 21:29: POC Glucose 168 H 07/04/23 06:29: POC Glucose 157 H 07/04/23 06:45: WBC 7.0, RBC 4.12 L, Hgb 11.3 L, Hct 36.0 L, MCV 87.4, MCH 27.4, MCHC 31.4 L, RDW Std Deviation 50.7 H, RDW Coeff of Edwardo 15.9 H, Plt Count 223, MPV 9.7, Sodium 138, Potassium 4.3, Chloride 103, Carbon Dioxide 28.0, Anion Gap 7, BUN 52 H, Creatinine 1.62 H, Estim Creat Clear Calc 36.24, Est GFR (MDRD) Af Amer 53 L, Est GFR (MDRD) Non-Af 44 L, BUN/Creatinine Ratio 32.1 H, Glucose 159 H, Calcium 9.2 07/04/23 11:33: POC Glucose 176 H D/C Instructions Discharge Diet: Low fat / Low cholesterol Discharge Activity: Return to Normal Activity Weight Bearing Status: Weight bearing as tolerated Call your doctor if you observe: Fever of 101 or Higher, Shortness of breath, Dizziness, Swelling in the ankles and Chest pain Meaningful Use Info Meaningful Use Diagnoses (Choose all that apply): CHF CHF JESSY/ARB ordered at discharge?: Yes Documented LVEF (%): 25 Discharge Plan Admission Admit Date/Time: 07/01/23 15:16 Primary Reason for Your Visit: acute exacerbation of heart failure Attending Provider: Sri De La Torre Primary Care Provider: Obed Marinelli Consulting Providers: Koko Azar; Obed Cummings; Niurka Hancock Instructions Patient Instructions: Coping with Heart Failure Additional Instructions / Restrictions: Follow-up with PCP for BMP to be done in 2 to 3 days to check on kidney function. Discharge Orders/Prescriptions Prescriptions: Continued potassium citrate 5 mEq (540 mg) tablet extended release 5 meq PO DAILY 90 Days Qty: 90 insulin regular human 100 UNIT/ML solution 6 unit IM BID Patient Comments: DIABETES, take with breakfast and dinner PT STATES HE USES 6-7 UNITS BID cholecalciferol (vitamin D3) 2,000 UNIT capsule 2,000 unit PO DAILY Patient Comments: Supplement Cranberry 1 tab PO DAILY Patient Comments: URINARY HEALTH aspirin 81 MG tablet,delayed release (DR/EC) 81 mg PO DAILY Qty: 0 0RF Patient Comments: PREVENTATIVE HEART AND STROKE cinnamon bark 500 MG capsule 500 mg PO DAILY albuterol sulfate 1 INHALER inhaler 2 puff Inhalation Q4H PRN Qty: 1 0RF atorvastatin 40 mg tablet 40 mg PO DAILY Qty: 30 2RF carvedilol 25 mg tablet 25 mg PO BID Qty: 60 2RF Patient Comments: heart rate/blood pressure lisinopril 20 MG tablet 20 mg PO QHS Qty: 30 2RF Patient Comments: BLOOD PRESSURE isosorbide mononitrate 60 mg tablet extended release 24 hr 60 mg PO DAILY Qty: 30 2RF Patient Comments: Chest pain magnesium oxide 400 mg (241.3 mg magnesium) tablet 400 mg PO DAILY Qty: 30 2RF nitroglycerin 0.4 mg tablet, sublingual 0.4 mg SUBLINGUAL Q5M PRN (Reason: Chest Pain) Qty: 30 2RF Rx Instructions: Place one tab under tongue every 5 minutes x 3 doses as needed omeprazole 20 MG capsule 20 mg PO DAILY Qty: 30 2RF Patient Comments: REFLUX apixaban 2.5 mg tablet 2.5 mg PO BID Qty: 60 11RF Changed furosemide 40 mg tablet 40 mg PO DAILY Qty: 30 2RF Referrals / Follow Up: Obed Marinelli MD [Primary Care Provider] - 07/11/23 3:00 pm Zenaida Akbar NP, MOLD CHANGER-C [Non-Staff -Ordering Privileges] - 07/15/23 9:30 am Disposition Disposition (needs filled in before D/C Order can be placed): Home, Self Care Charges/Coding Visit Charges Inpatient E&M: 19314 Disch Hosp >30min
--- NOTE | 2023-07-04 13:30 | CASEMGMT ---
Patient has order for discharge. Patient discharging on Jardiance, MATTHEW HERNANDEZ [facility] and copay is $528.41. MATTHEW HERNANDEZ in to update patient regarding cost, patient states he cannot afford prescription. Patient states that he is also out of several medications and had no refills. MATTHEW HERNANDEZ called [facility] and confirmed which medications patient needs scripts for: Lisinopril, isosorbide, magnesium, atorvastatin, carvedilol, omperazole, and nitro. MATTHEW HERNANDEZ udpated hospitalist regarding cost of Jardiance and need for additional script. RN CM updated patient regarding request for prescriptions. RN DAVID inquired if patient had Part D plan for prescriptions. Patient states he only has MCR A&B. Patient states he was going to inquire about LAZARO and states that he spoke with [facility] exhibit display representative. RN CM encourage patient to follow-up with claims representative regarding medications and cost, patient voiced understanding. Patient had no further questions or concerns. MATTHEW HERNANDEZ updated nursing regarding additional prescriptions to be sent to [facility].
--- NOTE | 2023-07-04 15:21 | PHA.DC.MC.R ---
Pharmacy [facility] Service has performed discharge medication reconciliation and counseling for this patient. 1. EMPAGLIFLOZIN 25MG PO DAILY The patient's discharge medication list was reviewed for discrepancies and discrepancies were resolved. The patient was counseled on the following discharge medications and changes in medications for homegoing were reviewed. The Reason for Use, instructions for use, and potential side effects were reviewed for all new medications. The patient's questions regarding all of their medications were answered. The patient was able to verbally demonstrate an understanding of their discharge medications. Medications at Discharge Home Medications Cranberry 1 tab PO DAILY Supplement 03/18/16 cholecalciferol (vitamin D3) 50 mcg (2,000 unit) capsule 2,000 unit PO DAILY Supplement 03/18/16 insulin regular human 100 unit/mL injection solution 6 unit IM BID Diabetes 03/18/16 aspirin 81 mg tablet,delayed release 81 mg PO DAILY heart health ##0 07/12/17 cinnamon bark 500 mg capsule 500 mg PO DAILY supplement 06/27/18 albuterol sulfate 90 mcg/actuation aerosol inhaler 2 puff inhalation Q4H PRN breathing ##1 06/29/18 potassium citrate 5 mEq (540 mg) tablet,extended release 5 meq PO DAILY suppllement 90 days #90 tabs 11/11/21 apixaban 2.5 mg tablet 2.5 mg PO BID blood thinner #60 tabs 04/06/22 atorvastatin 40 mg tablet 40 mg PO DAILY cholesterol #30 tabs 07/04/23 carvedilol 25 mg tablet 25 mg PO BID blood pressure #60 tabs 07/04/23 empagliflozin 25 mg tablet (Jardiance) 25 mg PO DAILY #30 tabs 07/04/23 furosemide 40 mg tablet 40 mg PO DAILY edema #30 tabs 07/04/23 isosorbide mononitrate 60 mg tablet,extended release 24 hr 60 mg PO DAILY heart #30 tabs 07/04/23 lisinopril 20 mg tablet 20 mg PO QHS blood pressure #30 tabs 07/04/23 magnesium oxide 400 mg (241.3 mg magnesium) tablet 400 mg PO DAILY supplement #30 tabs 07/04/23 nitroglycerin 0.4 mg sublingual tablet 0.4 mg sublingual Q5M PRN Chest Pain #30 tabs 07/04/23 omeprazole 20 mg capsule,delayed release 20 mg PO DAILY reflux #30 caps 04/01/24
[2023-07-04 16:00] VITALS: BP 125/95; PULSE 84; RESP 18; TEMP 36.3; O2SAT 98
[2023-07-04 16:50] LABS: Bedside Glucose 154 mg/dL (74-106)
--- NOTE | 2023-07-06 12:11 | CCN.REFER ---
PATIENT DOES NOT QUALIFY FOR [facility] HE RESIDES IN [place] WHICH IS NOT IN [facility] TERRITORY.
--- NOTE | 2023-07-06 13:57 | CASEMGMT ---
TC to [facility], spoke with July, she is aware that pt needs a refill on his eliquis. Requested med be sent into [facility] [place]. TC to pt, he is aware that this rx will need picked up and states he will be able to do so. He reports he has enough medication for tomorrow morning. Pt denies any questions regarding his dc instructions. Pt reports he has an appt with his PCP on Tuesday and will get blood work prior to the appt. Pt denies further needs.
== END 2023-07-04 17:08 | disposition home or self-care (01) | DRG 280 ==
LOC: ED 14:50 → PCU 17:00
PROVIDERS: Internal Medicine; Internal Medicine Interventional Cardiology; Nurse Practitioner; Emergency Provider Emergency Medicine; PCP Family Medicine; Visit Provider Student in an Organized Health Care Education/Training Program
DX: I13.0 Hypertensive heart and chronic kidney disease with heart failure and stage 1 through stage 4 chronic kidney disease, or unspecified chronic kidney disease (principal); I21.A1 Myocardial infarction type 2; I50.43 Acute on chronic combined systolic (congestive) and diastolic (congestive) heart failure; I27.21 Secondary pulmonary arterial hypertension; E11.22 Type 2 diabetes mellitus with diabetic chronic kidney disease; D64.9 Anemia, unspecified; E78.5 Hyperlipidemia, unspecified; N18.31 Chronic kidney disease, stage 3a; I48.0 Paroxysmal atrial fibrillation; I34.0 Nonrheumatic mitral (valve) insufficiency; E83.42 Hypomagnesemia; G47.33 Obstructive sleep apnea (adult) (pediatric); I25.5 Ischemic cardiomyopathy; K21.9 Gastro-esophageal reflux disease without esophagitis; I25.10 Atherosclerotic heart disease of native coronary artery without angina pectoris; I25.2 Old myocardial infarction; Z79.82 Long term (current) use of aspirin; Z79.01 Long term (current) use of anticoagulants; Z82.3 Family history of stroke; Z79.84 Long term (current) use of oral hypoglycemic drugs; I49.3 Ventricular premature depolarization; Z95.1 Presence of aortocoronary bypass graft
CPT/HCPCS: 36415; 71046; 80048; 81001; 82962; 83036; 83735; 83880; 84100; 84443; 84484; 85025; 85027; 85610; 93005; 93306; 97802; 97803; 99284; Q9957; A4216; C8929; J1940

== ENCOUNTER → 2023-07-07 | Outpatient (CLI) | payer MEDICARE, SELFPAY | END | disposition home or self-care (01) | LOC: MFPLAB 15:24 | PROVIDERS: PCP Family Medicine; Visit Provider Family Medicine | DX: Z00.00 Encounter for general adult medical examination without abnormal findings (principal) ==

== ENCOUNTER → 2023-07-11 | Outpatient (CLI) | payer MEDICARE, SELFPAY ==
[2023-07-11 17:48] LABS: AST(SGOT) 25 U/L (15-37); Alanine Aminotransfer ALT/SGPT 29 U/L (16-61); Albumin, Serum 3.2 g/dL (3.2-5.0); Alkaline Phosphatase 78 U/L (45-117); Anion Gap 5 (5-15); BUN 40 mg/dL (7-18); BUN/Creat Ratio 29.4 RATIO (10-20); Calcium,Total 8.7 mg/dL (8.5-10.1); Chloride 105 mmol/L (98-107); Creatinine, Serum 1.36 mg/dL (0.70-1.30); EST Glomerular Filtration Rate 53 mL/min (>60); Est Glom Filt Rate - Afr Amer 65 mL/min (>60); Globulin 3.2 g/dL (2.2-4.2); Glucose 73 mg/dL (74-106); Magnesium 1.6 mg/dL (1.6-2.6); Potassium 4.8 mmol/L (3.5-5.1); Protein, Total 6.4 g/dL (6.4-8.2); Sodium Level 142 mmol/L (136-145)
== END | disposition home or self-care (01) ==
LOC: MFPLAB 15:59
PROVIDERS: PCP Family Medicine; Visit Provider Family Medicine
DX: I50.40 Unspecified combined systolic (congestive) and diastolic (congestive) heart failure (principal)
CPT/HCPCS: 36415; 80053; 83735

== ENCOUNTER → 2023-07-15 | Outpatient (CLI) | payer MEDICARE, SELFPAY ==
[2023-07-15 11:55] LABS: Absolute Lymphocyte Count 0.68 X10^3/uL (0.83-4.51); Absolute Neutrophil Count 5.3 X10^3/uL (2.0-7.7); Basophil# 0.04 X10^3/uL; Basophil% 0.6 % (0-1); Eosinophil# 0.13 X10^3/uL; Eosinophils% 1.9 % (0-5); Hematocrit 35.9 % (40-54); Hemoglobin 10.8 g/dL (13.0-16.5); Lymphocyte # 0.68 X10^3/ul (0.83-4.51); Mean Corp Hgb Conc 30.1 g/dL (32-36); Mean Corpuscular Hgb 27.1 pg (27.0-32.0); Mean Corpuscular Volume 90.2 fL (80-94); Mean Platelet Vol. 10.7 fl (6.2-12.0); Monocyte# 0.63 X10^3/uL; Monocyte% 9.3 % (0-10); NRBC Flagged by Analyzer 0 % (0-5); Neutrophil # 5.31 X10^3/uL (2.7-7.7); Neutrophil % 77.9 % (47-70); Platelet Count 153 K/mm3 (150-450); RBC Distribution Width CV 16.3 % (11.6-14.6); RBC Distribution Width SD 53.3 fl (35.1-43.9); Red Blood Count 3.98 M/mm3 (4.6-6.2); White Blood Count 6.8 K/mm3 (4.4-11.0)
[2023-07-15 12:23] LABS: Anion Gap 3 (5-15); BUN 41 mg/dL (7-18); BUN/Creat Ratio 26.8 RATIO (10-20); Calcium,Total 8.9 mg/dL (8.5-10.1); Chloride 107 mmol/L (98-107); Creatinine, Serum 1.53 mg/dL (0.70-1.30); EST Glomerular Filtration Rate 47 mL/min (>60); Est Glom Filt Rate - Afr Amer 56 mL/min (>60); Glucose 128 mg/dL (74-106); Potassium 4.8 mmol/L (3.5-5.1); Sodium Level 141 mmol/L (136-145)
[2023-07-15 12:24] LABS: BNP,B-Type NATRIURETIC PEPTIDE 1226.7 pg/mL (0-100)
== END | disposition home or self-care (01) ==
LOC: LAB 10:47
PROVIDERS: PCP Family Medicine; Referring Provider Nurse Practitioner Gerontology; Visit Provider Nurse Practitioner Gerontology
DX: I50.20 Unspecified systolic (congestive) heart failure (principal)
CPT/HCPCS: 36415; 80048; 83880; 85025

== ENCOUNTER → 2023-07-26 | Outpatient (CLI) | payer MEDICARE, SELFPAY ==
[2023-07-26 17:34] LABS: Absolute Lymphocyte Count 0.69 X10^3/uL (0.83-4.51); Absolute Neutrophil Count 3.7 X10^3/uL (2.0-7.7); Basophil# 0.04 X10^3/uL; Basophil% 0.8 % (0-1); Eosinophil# 0.28 X10^3/uL; Eosinophils% 5.3 % (0-5); Hematocrit 35.4 % (40-54); Hemoglobin 10.6 g/dL (13.0-16.5); Lymphocyte # 0.69 X10^3/ul (0.83-4.51); Lymphocyte % 12.9 % (19-41); Mean Corp Hgb Conc 29.9 g/dL (32-36); Mean Corpuscular Hgb 27.6 pg (27.0-32.0); Mean Corpuscular Volume 92.2 fL (80-94); Mean Platelet Vol. 11.5 fl (6.2-12.0); Monocyte# 0.62 X10^3/uL; Monocyte% 11.6 % (0-10); NRBC Flagged by Analyzer 0 % (0-5); Neutrophil # 3.69 X10^3/uL (2.7-7.7); Neutrophil % 69.2 % (47-70); Platelet Count 158 K/mm3 (150-450); RBC Distribution Width CV 16.1 % (11.6-14.6); RBC Distribution Width SD 54.5 fl (35.1-43.9); Red Blood Count 3.84 M/mm3 (4.6-6.2); White Blood Count 5.3 K/mm3 (4.4-11.0)
[2023-07-26 18:06] LABS: BNP,B-Type NATRIURETIC PEPTIDE 849.9 pg/mL (0-100)
[2023-07-26 19:17] LABS: ALB/GLOB Ratio 1.1 RATIO (0.9-2.4); AST(SGOT) 23 U/L (15-37); Alanine Aminotransfer ALT/SGPT 18 U/L (16-61); Albumin, Serum 3.2 g/dL (3.2-5.0); Alkaline Phosphatase 71 U/L (45-117); Anion Gap 6 (5-15); BUN 31 mg/dL (7-18); BUN/Creat Ratio 20.8 RATIO (10-20); Calcium,Total 8.6 mg/dL (8.5-10.1); Chloride 104 mmol/L (98-107); Creatinine, Serum 1.49 mg/dL (0.70-1.30); EST Glomerular Filtration Rate 48 mL/min (>60); Est Glom Filt Rate - Afr Amer 58 mL/min (>60); Ferritin 80 ng/mL (26-388); Glucose 80 mg/dL (74-106); Potassium 4.3 mmol/L (3.5-5.1); Protein, Total 6.2 g/dL (6.4-8.2); Sodium Level 140 mmol/L (136-145)
== END | disposition home or self-care (01) ==
LOC: MFPLAB 11:35
PROVIDERS: PCP Family Medicine; Visit Provider Family Medicine
DX: D64.9 Anemia, unspecified (principal); I50.42 Chronic combined systolic (congestive) and diastolic (congestive) heart failure
CPT/HCPCS: 36415; 80053; 82728; 83880; 85025

== ENCOUNTER → 2023-09-05 | Outpatient (CLI) | payer MEDICARE, SELFPAY | END | disposition home or self-care (01) | PROVIDERS: PCP Family Medicine; Referring Provider Nurse Practitioner Gerontology; Visit Provider Nurse Practitioner Gerontology | DX: I48.0 Paroxysmal atrial fibrillation (principal) | CPT/HCPCS: 93225; 93226 ==

== ENCOUNTER → 2023-10-03 | Outpatient (CLI) | payer MEDICARE, SELFPAY ==
[2023-10-03 15:46] LABS: Hemoglobin A1c 6.2 % (3.8-5.6)
[2023-10-03 15:49] LABS: ALB/GLOB Ratio 1.1 RATIO (0.9-2.4); AST(SGOT) 15 U/L (15-37); Alanine Aminotransfer ALT/SGPT 16 U/L (16-61); Albumin, Serum 3.4 g/dL (3.2-5.0); Alkaline Phosphatase 70 U/L (45-117); Anion Gap 6 (5-15); BUN 45 mg/dL (7-18); BUN/Creat Ratio 30.4 RATIO (10-20); Calcium,Total 8.4 mg/dL (8.5-10.1); Chloride 107 mmol/L (98-107); Cholesterol 137 mg/dL (200); Creatinine, Serum 1.48 mg/dL (0.70-1.30); EST Glomerular Filtration Rate 48 mL/min (>60); Est Glom Filt Rate - Afr Amer 59 mL/min (>60); Globulin 3.2 g/dL (2.2-4.2); Glucose 130 mg/dL (74-106); High Density Lipoprotein 36 mg/dL; Potassium 4.4 mmol/L (3.5-5.1); Protein, Total 6.6 g/dL (6.4-8.2); Sodium Level 142 mmol/L (136-145); Triglycerides 160 mg/dL; Very Low Density Lipoprotein 32 mg/dL (5-40)
[2023-10-03 16:27] LABS: Microalbumin,Random Urine 11.6 mg/L (NO RANGE EST.); Microalbumin:Creatinine Ratio 10.7 mg/g CRE (<30 mg/g CRE)
== END | disposition home or self-care (01) ==
LOC: MTLAB 12:36
PROVIDERS: PCP Family Medicine; Referring Provider Family Medicine; Visit Provider Family Medicine
DX: E11.22 Type 2 diabetes mellitus with diabetic chronic kidney disease (principal); N18.30 Chronic kidney disease, stage 3 unspecified
CPT/HCPCS: 36415; 80053; 80061; 82043; 82570; 83036

== ENCOUNTER → 2023-10-14 | Outpatient (CLI) | payer MEDICARE, SELFPAY ==
--- NOTE | 2023-10-14 09:54 | ECHOLC_ITS ---
Reason For Study: old mi Procedure This was a limited 2D transthoracic echocardiogram. The study was technically difficult. Contrast injection was performed. Exam performed in department. Left Ventricle Normal LV size. The left ventricular ejection fraction is 35 %. There is moderate global hypokinesis of the left ventricle. Right Ventricle Normal RV size. Normal systolic function. Atria The left atrium is moderately enlarged. The right atrium is mildly enlarged. Mitral Valve Mild focal mitral valve calcification. Tricuspid Valve Normal tricuspid valve. Aortic Valve Trisinus/trileaflet aortic valve. Mild focal aortic valve calcification. Pulmonic Valve Normal pulmonic valve. Great Vessels Calcified aortic root. The pulmonary artery is normal size. Inferior vena cava collapse with respiration. Pericardium/Pleural No pericardial effusion. Medication 22 gauge I.V. with prn adaptor inserted into right arm. Diluted definity 1.5ml given slow IV push to enhance endocardial definition. MMode/2D Measurements & Calculations LAV(MOD-bp): 120.9 ml SV(MOD-sp4): 61.2 ml LVAd ap4: 47.2 cm2 LAV(MOD-bp) Indexed: 61.8 ml/m2 LVLd ap4: 9.3 cm LAV(MOD-sp2): 106.7 ml EDV(MOD-sp4): 198.5 ml LAV(MOD-sp4): 98.8 ml EDV(sp4-el): 203.5 ml LVAs ap4: 37.8 cm2 LVLs ap4: 8.7 cm ESV(MOD-sp4): 137.3 ml ESV(sp4-el): 139.0 ml EF(MOD-sp4): 30.8 % EF(sp4-el): 31.7 % SV(sp4-el): 64.5 ml LA A4 area: 31.2 cm2 LA dimension(2D): 4.7 cm RA A4 area: 23.1 cm2 ECHO/Echo Limited w/Contrast Interpretation Summary The left ventricular ejection fraction is 35 %. There is moderate global hypokinesis of the left ventricle. Normal LV size. Mild focal aortic valve calcification. The left atrium is moderately enlarged. Ordering Physician: Zenaida Akbar Referring Physician: Zenaida Akbar Performed By: Krissy Uribe RCS
== END | disposition home or self-care (01) ==
PROVIDERS: PCP Family Medicine; Referring Provider Nurse Practitioner Gerontology; Visit Provider Nurse Practitioner Gerontology
DX: I25.2 Old myocardial infarction (principal); I50.20 Unspecified systolic (congestive) heart failure
CPT/HCPCS: 93308; Q9957; A4216; C8924

== ENCOUNTER → 2024-01-24 | Outpatient (CLI) | payer MEDICARE, SELFPAY ==
--- NOTE | 2024-01-24 08:51 | ECHOCS_ITS ---
Reason For Study: Non Isch CMP Procedure This was a 2D Doppler, Color Flow transthoracic echocardiogram. The study was technically difficult. Contrast injection was performed. Exam performed in department. Left Ventricle Normal LV size. Moderate concentric left ventricular hypertrophy. Left ventricular systolic function is normal. The left ventricular ejection fraction is 55 %. No regional wall motion abnormalities noted. Right Ventricle Normal RV size. Normal systolic function. Atria The left atrium is severely enlarged. The right atrium is mildly enlarged. Mitral Valve Normal mitral valve. Tricuspid Valve Normal tricuspid valve. Mild (1+) tricuspid valve insufficiency. Pulmonary artery systolic pressure is 42 mmHg. Aortic Valve Trisinus/trileaflet aortic valve. Mild focal aortic valve calcification. Mean aortic valve gradient 8 mmHg. Great Vessels Normal aortic root. Pericardium/Pleural No pericardial effusion. Medication 22 gauge I.V. with prn adaptor inserted into right arm. Diluted definity 3ml given slow IV push to enhance endocardial definition. MMode/2D Measurements & Calculations LVIDd: 4.9 cm IVSd: 1.4 cm LVOT diam: 2.2 cm LVIDs: 4.0 cm LVPWd: 1.3 cm LVOT area: 3.8 cm2 RVDd: 4.7 cm FS: 19.7 % Ao root diam: 3.5 cm asc Aorta Diam: 3.8 cm LAV(MOD-bp): 128.1 ml ACS: 1.1 cm LAV(MOD-bp) Indexed: 65.5 ml/m2 LAV(MOD-sp2): 122.6 ml LAV(MOD-sp4): 125.0 ml SV(MOD-sp4): 72.2 ml SV(sp4-el): 72.8 ml LVAd ap4: 36.8 cm2 LVLd ap4: 8.2 cm EDV(MOD-sp4): 137.1 ml EDV(sp4-el): 139.1 ml LVAs ap4: 24.2 cm2 LVLs ap4: 7.5 cm ESV(MOD-sp4): 64.8 ml ESV(sp4-el): 66.3 ml EF(MOD-sp4): 52.7 % EF(sp4-el): 52.3 % Ao sinus diam: 3.[address] Junction: 2.1 cm Aortic Valve Planimetry: 1.4 cm2 LA dimension(2D): 5.0 cm LA A4 area: 32.7 cm2 RA A4 area: 22.2 cm2 TAPSE: 1.1 cm Doppler Measurements & Calculations MV E max reyes: 82.3 cm/sec MV V2 max: 105.6 cm/sec Ao V2 max: 188.9 cm/sec MV max P.5 mmHg Ao max P.4 mmHg MV V2 mean: 44.3 cm/sec Ao V2 mean: 130.9 cm/sec MV mean P.1 mmHg Ao mean P.0 mmHg MV V2 VTI: 29.8 cm Ao V2 VTI: 37.2 cm MVA(VTI): 2.1 cm2 AV (velocity ratio): 0.44 ROMEO(I,D): 1.7 cm2 ROMEO(V,D): 1.5 cm2 LV V1 max: 76.8 cm/sec MR max reyes: 440.7 cm/sec SV(LVOT): 61.4 ml LV V1 max P.4 mmHg MR max P.7 mmHg LV V1 mean P.3 mmHg LV V1 mean: 52.7 cm/sec LV V1 VTI: 16.3 cm PA V2 max: 86.2 cm/sec TR max reyes: 310.8 cm/sec PA max PG (full): 1.6 mmHg TR max P.6 mmHg PA V2 mean: 57.2 cm/sec PA mean PG (full): 0.41 mmHg ECHO/Echo Complete W/ Contrast Interpretation Summary Normal LV size. The left ventricular ejection fraction is 55 %. Left ventricular systolic function is normal. The left atrium is severely enlarged. Contrast injection was performed. Ordering Physician: Zenaida Akbar Referring Physician: Obed Marinelli Performed By: Tano Lopez RCS
--- OUTSIDE RECORDS SUMMARY | 2024-01-24 09:22 | XMS RPT_ITS | CCD ---
Author Organization [facility] CliniSyin Care Team Providers Care Biological Science Technician Fish Name Role Phone Zita Johnson Unavailable Unavailable Krysten Jimenez Unavailable JohnsonZita Unavailable Unavailable Medications Completed/Discontinued Medications Medication Drug Class(es) Dates Sig (Normalized) Sig (Original) aspirin 81 mg oral tablet (6 sources) Nonsteroidal Anti-inflammatory Drug Start: 06-23-2010 take 1 tablet by mouth once daily ASPIRIN 81 MG TABS One tablet by mouth daily ASPIRIN [id number] Zita Solis Elizabeth Start: 06-23-2010 take 1 tablet by chantal th once daily ASPIRIN 81 MG TABS One tablet by mouth daily ASPIRIN [id number] Zita Solis Elizabeth Start: 06-23-2010 take 1 tablet by chantal th once daily ASPIRIN EC 81 MG TBEC One tablet by mouth daily ASPIRIN [id number] Christi Salcedo RN atorvastatin 40 mg oral tablet (3 sources) HMG-CoA Reductase Inhibitor Start: 04-18-2013 take 1 tablet by mouth once daily LIPITOR 40 MG TABS One tablet by mouth daily ATORVASTATIN CALCIUM [id number] Radha Zimmerman NP carvedilol 25 mg oral tablet (15 sources) alpha-Adrenergic Suzy, beta-Adrenergic Suzy Start: 06-23-2010 take 1 tablet by mouth twice daily CARVEDILOL 25 MG TABS One tablet by mouth twice daily CARVEDILOL [id number] Luciano Moscoso MD cranberry preparation 450 mg oral capsule (3 sources) Non-Standardized Food Allergenic Extract, Non-Standardized Plant Allergenic Extract Start: 09-12-2014 take 1 tablet by mouth once daily CRANBERRY CAPS One tablet by mouth daily CRANBERRY CAPS [id number] Luciano Moscoso MD hydrALAZINE hydrochloride 25 mg oral tablet (6 sources) Arteriolar Vasodilator Start: 06-23-2010 End: 02-24-2011 take 1 tablet by mouth three times daily HYDRALAZINE HCL 25 MG TABS One tablet by mouth three times daily HYDRALAZINE HCL [id number] Zita Saldanaward insulin glargine 100 unt/ml injectable solution (6 sources) Insulin Analogue Start: 06-23-2010 End: 02-27-2014 LANTUS 100 UNIT/ML SOLN Take as directed INSULIN GLARGINE [id number] Zita Saldanaward Start: 06-23-2010 LANTUS 100 UNI T/ML SOLN Take as directed INSULIN GLARGINE [id number] Zita Solis Elizabeth Start: 06-23-2010 End: 02-27-2014 LANTUS 100 UNIT/ML SOLN Take as directed INSULIN GLARGINE [id number] July Quarles PA-C 3 ml insulin, aspart, human 100 unt/ml cartridge (6 sources) Insulin Analogue Start: 06-23-2010 End: 02-24-2011 NOVOLOG PENFILL 100 UNIT/ML SOCT Take as directed INSULIN ASPART [id number] Zita Solis Johnson Start: 06-23-2010 End: 02-24-2011 NOVOLOG PENFILL 100 UNIT/ML SOCT Take as directed INSULIN ASPART [id number] Deena Bond RN Start: 06-23-2010 NOVOLOG PENFIL L 100 UNIT/ML SOCT Take as directed INSULIN ASPART [id number] Zita Solis Elizabeth 24 hr isosorbide mononitrate 60 mg extended release oral tablet (3 sources) Start: 03-24-2016 take 1 tablet by mouth once daily ISOSORBIDE MONONITRATE ER 60 MG [id number] One tablet by mouth daily ISOSORBIDE MONONITRATE [id number] July Quarles PA-C lisinopril 5 mg oral tablet (9 sources) Angiotensin Converting Enzyme Inhibitor Start: 04-20-2011 take 1 tablet by mouth twice daily LISINOPRIL 5 MG TABS One tablet by mouth twice daily LISINOPRIL [id number] Luciano Moscoso MD Start: 04-20-2011 take 1 tablet by chantal th once daily at bedtime LISINOPRIL 20 MG TABS One tablet by mouth daily at bedtime LISINOPRIL [id number] Luciano Moscoso MD Start: 06-23-2010 take 1 tablet by chantal th once daily LISINOPRIL 5 MG TABS One tablet by mouth daily LISINOPRIL 56371650669 Zita Johnson magnesium oxide 400 mg oral tablet (3 sources) Start: 03-24-2016 take 1 tablet by mouth once daily MAGNESIUM OXIDE 400 MG TABS One tablet by mouth daily MAGNESIUM OXIDE [id number] July Quarles PA-C 24 hr niacin 1000 mg extended release oral tablet (12 sources) Nicotinic Acid Start: 12-29-2011 End: 08-24-2013 take 1 tablet by mouth once daily NIASPAN 1000 MG CR-TABS One tablet by mouth daily every night NIACIN (ANTIHYPERLIPIDEMIC ) [id number] Zainab Herr RN Start: 12-29-2011 End: 08-24-2013 take 1 tablet by mouth once daily NIASPAN 1000 MG CR-TABS One tablet by mouth daily every night NIACIN (ANTIHYPERLIPIDEMIC) [id number] Zainab Herr RN Start: 06-23-2010 End: 08-24-2013 take 1 tablet by mouth once daily NIACIN 500 MG TABS (SR) One tablet by mouth daily NIACIN [id number] Zita Johnson omeprazole 20 mg delayed release oral capsule (3 sources) Proton Pump Inhibitor Start: 06-23-2010 take 1 tablet by mouth once daily OMEPRAZOLE 20 MG CPDR One tablet by mouth daily OMEPRAZOLE [id number] Zita Johnson pravastatin sodium 40 mg oral tablet (6 sources) HMG-CoA Reductase Inhibitor Start: 11-03-2010 take 1 tablet by mouth once daily PRAVASTATIN SODIUM 40 MG TABS One tablet by mouth daily PRAVASTATIN SODIUM [id number] Luciano Moscoso MD Start: 06-23-2010 take 1 tablet by chantal th once daily PRAVASTATIN SODIUM 20 MG TABS One tablet by mouth daily PRAVASTATIN SODIUM [id number] Zita Johnson regular insulin, human 100 unt/ml injectable solution (6 sources) Insulin Start: 02-24-2011 HUMULIN R 100 UNIT/ML SOLN Take as directed sliding scale INSULIN REGULAR HUMAN [id number] Harumi Y DeFinis Start: 02-24-2011 HUMULIN R 100 UNIT/ML SOLN Take as directed sliding scale INSULIN REGULAR HUMAN [id number] Harumi Y DeFinis Start: 02-24-2011 HUMULIN R 100 UNIT/ML SOLN Take as directed sliding scale INSULIN REGULAR HUMAN [id number] Deena Bond RN VITAMIN A TABS (3 sources) Vitamin A Start: 09-12-2014 take 1 tablet by mouth once daily VITAMIN A PALMITATE TABS One tablet by mouth daily VITAMIN A TABS 10139073238 Luciano Moscoso MD Start: 09-12-2014 take 1 tablet by chantal th once daily VITAMIN A PALMITATE TABS One tablet by mouth daily VITAMIN A TABS [id number] Luciano Moscoso MD vitamin d 1000 unt oral tablet (6 sources) Start: 08-24-2013 take 2 tablets by mouth once daily VITAMIN D 1000 UNIT TABS Two tablets by mouth daily CHOLECALCIFEROL [id number] Riya Anderson Start: 08-24-2013 take 2 tablets by mo uth once daily VITAMIN D 1000 UNIT TABS Two tablets by mouth daily CHOLECALCIFEROL [id number] Riya Anderson Start: 08-24-2013 take 2 tablets by mo uth once daily VITAMIN D 1000 UNIT TABS Two tablets by mouth daily CHOLECALCIFEROL [id number] Luciano Moscoso MD Problems Active Problems Problem Classification Problem Date Documented Date Episodic/Chronic Cardiac dysrhythmias (3 sources) Ventricular premature beats; Translations: [Ventricular premature depolarization] Onset: 12-27-2012 12-27-2012 Chronic Coronary atherosclerosis and other heart disease (12 sources) Atherosclerotic heart disease of unga coronary artery without angina pectoris; Translations: [Coronary [...] (1 source) Long-term drug therapy; Translations: [Other terminal makeup operator (current) drug therapy] Onset: 06-23-2010 06-23-2010 Past or Other Problems Problem Classification Problem Date Documented Da te Episodic/Chronic Coronary atherosclerosis and other heart disease (3 sources) Presence of aortocoronary bypass graft; Translations: [Presence of aortocoronary bypass graft] Onset: 06-23-2010 06-23-2010 Episodic Other aftercare (2 sources) Other terminal makeup operator (current) drug therapy; Translations: [Other terminal makeup operator (current) drug therapy] Onset: 06-23-2010 06-23-2010 Episodic Residual codes; unclassified (1 source) Family history of stroke; Translations: [Family history of stroke] 02-27-2014 Episodic Unclassified (5 sources) FH: Hypertension; Translations: [Family history of stroke] 02-27-2014 Episodic Results Test Name Value Interpretation Reference Range Facility Office Visiton 12-21-2016 Documentation of current medications (procedure) Done Invalid Interpretation Code [employer] Work Phone: Fall risk assessment No Invalid Interpretation Code [employer] Work Phone: Protein mass conc Done Invalid Interpretation Code [employer] Work Phone: Chart Maintenanceon 07-20-19 17 HbA1c 6.3 % Invalid Interpretation Code [employer] Work Phone: Office Visiton 06-22-2016 Documentation of current medications (procedure) Done Invalid Interpretation Code [employer] Work Phone: Fall risk assessment No Invalid Interpretation Code [employer] Work Phone: Clinical Lists Update: 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 06-18-2016 Left ventricular Ejection fraction 52 % Invalid Interpretation Code [employer] Work Phone: Office Visit: [facility] 03-24-20 16 Dietary management education, guidance, and counseling (procedure) yes Invalid Interpretation Code [employer] Work Phone: Office Visit: [facility] 03-14-20 15 Tobacco smoking status NHIS Never smoker Invalid Interpretation Code [employer] Work Phone: Tobacco use CP Never smoker Invalid Interpretation Code [employer] Work Phone: Replaced Document: Srinivas Ortega CG Observationson 03-14-2015 EKG QRS axis -12 deg Invalid Interpretation Code [employer] Work Phone: electrocardiogram interpretation Marked sinus Bradycardia - occasional ectopic ventricular beat - Diffuse nonspecific T-abnormality. ABNORMAL Invalid Interpretation Code [employer] Work Phone: GE use only - for [employer] import when terms are not otherwise specified 387 ms Invalid Interpretation Code [employer] Work Phone: Interpretation Marked sinus Bradycardia - occasional ectopic ventricular beat - Diffuse nonspecific T-abnormality. ABNORMAL Invalid Interpretation Code [employer] Work Phone: P Rowe 45 deg Invalid Interpretation Code [employer] Work Phone: P wave axis, electrocardiogram 45 deg Invalid Interpretation Code [employer] Work Phone: GA Interval 180 ms Invalid Interpretation Code [facility] Work Phone: GA interval, electrocardiogram 180 ms Invalid Interpretation Code [employer] [facility] Work Phone: Pulse (Heart Rate) 49 /min Invalid Interpretation Code [employer] [facility] Work Phone: QRS axis, electrocardiogram -12 deg Invalid Interpretation Code [employer] [facility] Work Phone: QRS Duration 100 ms Invalid Interpretation Code [facility] Work Phone: QRS duration, electrocardiogram 100 ms Invalid Interpretation Code [employer] [facility] Work Phone: QT Interval new path ms Invalid Interpretation Code [facility] Work Phone: QT interval, electrocardiogram new path ms Invalid Interpretation Code [employer] [facility] Work Phone: QTc Greenberg 387 ms Invalid Interpretation Code [facility] Work Phone: T Rowe 1 deg Invalid Interpretation Code [facility] Work Phone: T wave axis, electrocardiogram 1 deg Invalid Interpretation Code [employer] [facility] Work Phone: Lab Report: Basic Metabolic Profile (BMP)on 03-11-2015 Anion gap 1 mmol/L Low 5-15 [facility] [employer] [facility] Work Phone: Anion gap 4 molar conc 1 Low 5-15 [facility] Work Phone: BUN/Creatinine Ratio 16.9 RATIO Invalid Interpretation Code 10-20 [facility] [employer] [facility] Work Phone: Calcium 8.5 mg/dL Invalid Interpretation Code 8.5-10.1 [employer] [facility] Work Phone: Chloride 109 mmol/L High 98-107 [employer] [facility] Work Phone: CO2 33.0 mmol/L High 21.0-32.0 [employer] [facility] Work Phone: CO2 ppres (BldV) 33.0 mmol/L High 21.0-32.0 [employer] [facility] Work Phone: Creatinine 1.18 mg/dL Invalid Interpretation Code 0.70-1.30 [employer] [facility] Work Phone: eGFR (non-black) 78 mL/min/{1.73_m2} Invalid Interpretation Code >60 [employer] [facility] Work Phone: eGFR (non-black) 64 mL/min/{1.73_m2} Invalid Interpretation Code >60 [facility] [employer] [facility] Work Phone: EST GFR - AA 78 mL/min Invalid Interpretation Code >60 [employer] Work Phone: Glucose 119 mg/dL High 70-110 [employer] [facility] Work Phone: Glucose mass conc 119 mg/dL High 70-110 [employer] Work Phone: Potassium 4.7 mmol/L Invalid Interpretation Code 3.5-5.1 [employer] [facility] Work Phone: Sodium 143 mmol/L Invalid Interpretation Code 136-145 [employer] [facility] Work Phone: Urea nitrogen 20 mg/dL High 7-18 [employer] [facility] Work Phone: Lab Report: Lipid Profileon 03-11-2015 Cholesterol 109 mg/dL Invalid Interpretation Code 200 [employer] [facility] Work Phone: HDL Cholesterol 32 mg/dL Low [facility] Work Phone: LDL Cholesterol 51 mg/dL Invalid Interpretation Code 0-130 [employer] [facility] Work Phone: Triglyceride 128 mg/dL Invalid Interpretation Code [facility] [employer] [facility] Work Phone: very low density lipoproteins 26 mg/dL Invalid Interpretation Code 5-40 [facility] [employer] [facility] Work Phone: Lab Report: Liver Profileon 03-11-2015 Alanine aminotransferase (ALT) 32 U/L Invalid Interpretation Code 12-78 [facility] [employer] [facility] Work Phone: Albumin 3.4 g/dL Invalid Interpretation Code 3.4-5.0 [facility] Work Phone: Alkaline phosphatase (ALP) 88 U/L Invalid Interpretation Code 50-136 [facility] Work Phone: ALP enzyme act/vol (Bld) 88 U/L Invalid Interpretation Code 50-136 [facility] [employer] [facility] Work Phone: Aspartate aminotransferase (AST) 21 U/L Invalid Interpretation Code 15-37 [facility] Work Phone: Bilirubin (direct) 0.20 mg/dL Invalid Interpretation Code 0.00-0.30 [facility] Work Phone: Bilirubin (total) 0.80 mg/dL Invalid Interpretation Code 0.20-1.00 [facility] Work Phone: Globulin 3.2 g/dL Invalid Interpretation Code 2.3-3.5 [facility] Work Phone: Protein 6.6 g/dL Invalid Interpretation Code 6.4-8.2 [facility] Work Phone: Lab Report: PSA,Total - Emily al Screenon 03-11-2015 prostate specific antigen (PSA) screening 1.21 ng/mL Invalid Interpretation Code 0.00-4.00 [facility] Work Phone: PSA,TOT SCREEN 1.21 ng/mL Invalid Interpretation Code 0.00-4.00 [facility] [employer] [facility] Work Phone: Lab Report: CBC W/Diff, Auto matedon 09-09-2014 Absolute Neut 4.0 X10 3/UL Invalid Interpretation Code 2.0-7.7 [facility] Work Phone: Absolute Neutrophil count 4.0 X10 3/UL Invalid Interpretation Code 2.0-7.7 [facility] Work Phone: Basophils/100 leukocytes 0.5 % Invalid Interpretation Code 0-1 [facility] Work Phone: Eosinophils/100 leukocytes 3.5 % Invalid Interpretation Code 0-5 [facility] Work Phone: Erythrocyte distribution width Auto Ratio (RBC) 43.5 fL Invalid Interpretation Code 35.1-43.9 [facility] [employer] [facility] Work Phone: Erythrocytes (RBC) 4.50 10*6/uL Low 4.6-6.2 [facility] Work Phone: Hematocrit (HCT) 40.4 % Invalid Interpretation Code 40-54 [facility] Work Phone: Hemoglobin (HGB) 13.2 g/dL Invalid Interpretation Code 13.0-16.5 [facility] Work Phone: Immature granulocytes #/vol (Bld) 0.200 % Invalid Interpretation Code 0.0-0.9 [facility] Work Phone: immature granulocytes, percentage of total cells, blood 0.200 % Invalid Interpretation Code 0.0-0.9 [facility] Work Phone: Lymphocytes 1.28 X10 3/UL Invalid Interpretation Code 0.83-4.51 [facility] Work Phone: Lymphocytes/100 leukocytes 21.1 % Invalid Interpretation Code 19-41 [facility] Work Phone: MCH 29.3 pg Invalid Interpretation Code 27.0-32.0 [facility] Work Phone: MCHC 32.7 G/GL Invalid Interpretation Code 32-36 [facility] Work Phone: MCV 89.8 fL Invalid Interpretation Code 80-94 [facility] Work Phone: Monocytes/100 leukocytes 8.7 % Invalid Interpretation Code 0-10 [facility] Work Phone: Neutrophils/100 leukocytes 66.0 % Invalid Interpretation Code 47-70 [facility] Work Phone: Platelets 170 10*3/mm3 Invalid Interpretation Code 150-450 [facility] Work Phone: PMV by Yolaned 11.0 fL Invalid Interpretation Code 6.2-12.0 [facility] Work Phone: red blood cell distribution width, size density 43.5 fL Invalid Interpretation Code 35.1-43.9 [facility] Work Phone: WBC (Leukocytes) 6.1 10*3/uL Invalid Interpretation Code 4.4-11.0 [employer] [facility] Work Phone: Lab Report: Comprehensive Me tabolic Profilon 09-09-2014 Albumin/Globulin Ratio 0.9 {ratio} Invalid Interpretation Code 0.9-2.4 [facility] Work Phone: Lab Report: Microalb:Creat R atio,Random URon 09-09-2014 Urine, creatinine 131.3 mg/dL Invalid Interpretation Code NO RANGE EST. [facility] Work Phone: Urine, microalbumin 2.35 mg/dL Invalid Interpretation Code Units converted. See lab report for original value. [facility] [employer] Work Phone: Lab Report: Vitamin D,25 Hyd roxyon 09-09-2014 vitamin D 25-hydroxy, serum 33.1 ng/mL Invalid Interpretation Code [facility] [employer] [facility] Work Phone: Vitamin D 25-OH 33.1 ng/mL Invalid Interpretation Code [facility] Work Phone: Office Visit: [facility] 02-28-20 14 cardiac risk group C Invalid Interpretation Code [employer] [facility] Work Phone: General cardiovascular disease 10Y risk [#] [place]D'Agostino N/A Invalid Interpretation Code [facility] Work Phone: LDL target level 100 mg/dL Invalid Interpretation Code [facility] Work Phone: Tobacco smoking status NHIS Never Invalid Interpretation Code [facility] Work Phone: Lab Report: TSHon 04-09-2013 Thyroid stimulating hormone (TSH) 1.68 u[iU]/mL Normal 0.358-3.74 [facility] Work Phone: Replaced Document: [employer] E CG Observationson 12-27-2012 Pulse (Heart Rate) 380 ms Invalid Interpretation Code [facility] [employer] [facility] Work Phone: Lab Report: RENAL - copyon 0 10-04-2012 PHOS 3.1 mg/dL Normal 2.5-4.9 [facility] Work Phone: Phosphorus Concentratation-Random 3.1 mg/dL Normal 2.5-4.[address] [facility] Work Phone: Vital Signs Date Time Vital Sign Value Performing Clinician Facility 12-21-2016 11:39-0400 BMI (Body Mass Index) 36.26 kg/m2 Zita Johnson [facility] Work Phone: 12-21-2016 11:39-0400 BP Diastolic 60 mm[Hg] Zita Johnson [facility] Work Phone: 12-21-2016 11:39-0400 BP Systolic 140 mm[Hg] Zita Johnson [facility] Work Phone: 12-21-2016 11:39-0400 Height 167.64 cm Zita Johnson [facility] Work Phone: 12-21-2016 11:39-0400 Pulse (Heart Rate) 56 /min Zita Johnson [facility] Work Phone: 12-21-2016 11:39-0400 Respiratory Rate 20 /min Zita Johnson [facility] Work Phone: 12-21-2016 11:39-0400 Weight 101.92 kg Zita Johnson [facility] Work Phone: 06-22-2016 11:49-0400 BMI (Body Mass Index) 34.86 kg/m2 Kryst[facility] Jimenez [facility] Work Phone: 06-22-2016 11:49-0400 BP Diastolic 56 mm[Hg] [facility] Work Phone: 06-22-2016 11:49-0400 BP Systolic 90 mm[Hg] Krysten Jimenez [facility] Work Phone: 06-22-2016 11:49-0400 Height 167.64 cm Krysten Jimenez [facility] Work Phone: 06-22-2016 11:49-0400 Pulse (Heart Rate) 60 /min Krysten Jimenez [facility] [place] [facility] Work Phone: 06-22-2016 11:49-0400 Respiratory Rate 20 /min Krysten Jimenez [facility] Work Phone: 06-22-2016 11:49-0400 Weight 97.98 kg Krysten Jimenez [facility] [place] [facility] Work Phone: 03-24-2016 11:42-0500 BSA (Body Surface Area) 2.06 m2 Krystenzeyad Jimenez [facility] Work Phone: 03-14-2015 13:01-0500 Heart rate 49 /min Zita Johnson [facility] Work Phone: 08-24-2013 14:19-0400 Pulse Oximetry 99 % Krysten Jimenez [facility] Work Phone: 12-27-2012 14:08-0400 Heart rate 380 ms Zita Johnson [facility] Work Phone: Procedures Date [...] counseling Zita Johnson Start: 03-24-2016 End: 03-24-2016 MICROBIOLOGY DIRECTOR July Quarles PA-C Work Phone: Start: 03-24-2016 End: [...] PA-C Work Phone: Start: 03-14-2015 End: 03-14-2015 MICROBIOLOGY DIRECTOR July Quarles PA-C Work Phone: Start: 03-14-2015 End: 03-14-2015 Ecg routine ecg w/least 12 lds w/i&r July Quarles PA-C Work Phone: Start: 03-14-2015 End: 03-14-2015 Follow Up Appt 6 months July craven PA-C Work Phone: Start: 03-14-2015 End: 03-14-2015 MICROBIOLOGY DIRECTOR July Quarles PA-C Work Phone: Start: 03-14-2015 [...] PA-C Work Phone: Start: 02-27-2014 End: 03-05-2015 MICROBIOLOGY DIRECTOR July Quarles PA-C Work Phone: Start: 02-27-2014 [...] PA-C Work Phone: Start: 02-27-2014 End: 03-05-2015 MICROBIOLOGY DIRECTOR July Quarles PA-C Work Phone: Start: 02-27-2014 End: 03-13-2014 Electrocardiogram, complete July Quarles PA-C Work Phone: Start: 02-27-2014 End: 03-05-2015 Follow Up Appt 6 months July craven PA-C Work Phone: Start: 02-27-2014 End: 03-07-2014 Lipid panel [AGGREGATE] July craven PA-C Work Phone: Start: 08-24-2013 End: 08-24-2013 Follow Up Appt 6 months Irma Rojas Start: 08-24-2013 End: 08-24-2013 EPIFANIO Moscoso MD Start: 08-24-2013 End: 09-03-2013 Nuclear stress test -adenosine Luciano Moscoso MD Start: 08-24-2013 End: 08-24-2013 Follow Up Appt 6 months Irma Rojas Start: 08-24-2013 End: 08-24-2013 EPIFANIO Moscoso MD Start: 08-24-2013 End: 09-03-2013 Nuclear [...] PA-C Work Phone: Start: 12-27-2012 End: 12-27-2012 MICROBIOLOGY DIRECTOR July Quarles PA-C Work Phone: Start: 12-27-2012 End: 12-27-2012 Ecg routine ecg w/least 12 lds w/i&r July Quarles PA-C Work Phone: Start: 12-27-2012 End: 04-09-2013 24 hour holter monitor July king PA-C Work Phone: Start: 12-27-2012 End: 12-27-2012 MICROBIOLOGY DIRECTOR July Quarles PA-C Work Phone: Start: 12-27-2012 [...] Author Start: 06-23-2017 End: 06-23-2017 Appointment Appointment [facility] Work Phone: Start: 12-21-2016 End: 12-21-2016 Follow Up Appt 6 months Follow Up Appt 6 months [facility] Work Phone: Start: 12-21-2016 End: 12-21-2016 MMM MMM [facility] Work Phone: Start: 12-21-2016 End: 12-21-2016 Appointment Appointment [facility] [employer] [facility] Work Phone: Start: 12-21-2016 End: 12-21-2016 Follow Up Appt 6 months Follow Up Appt 6 months [facility] Work Phone: Start: 12-21-2016 End: 12-21-2016 MMM MMM [facility] Work Phone: Start: 06-22-2016 End: 06-22-2016 Follow Up Appt 6 months Follow Up Appt 6 months [facility] Work Phone: Start: 06-22-2016 End: 06-22-2016 MMM MMM [facility] Work Phone: Start: 06-22-2016 End: 06-22-2016 Follow Up Appt 6 months Follow Up Appt [address] [facility] Work Phone: Start: 06-22-2016 End: 06-22-2016 [facility] Work Phone: Start: 03-24-2016 End: 03-24-2016 [facility] MICROBIOLOGY DIRECTOR [facility] Work Phone: Start: 03-24-2016 End: 03-24-2016 Follow Up Appt 3 months Follow Up Appt 3 months [facility] Work Phone: Start: 03-24-2016 End: 03-24-2016 [facility] Work Phone: Start: 03-24-2016 End: 03-24-2016 Follow Up Appt 3 months Follow Up Appt [address] [facility] Work Phone: Start: 09-25-2015 End: 03-11-2016 Follow Up Appt 6 months Follow Up Appt 6 months [facility] Work Phone: Start: 09-25-2015 End: 03-11-2016 [facility] Work Phone: Start: 09-25-2015 End: 03-11-2016 Follow Up Appt 6 months Follow Up Appt [address] [facility] Work Phone: Start: 09-25-2015 End: 03-11-2016 [facility] Work Phone: Start: 09-10-2015 End: 03-11-2016 *Hepatic Function Panel *Hepatic Function Panel [facility] Work Phone: Start: 09-10-2015 End: 03-11-2016 Lipid 1996 panel *Lipid Profile CC PCP [facility] Work Phone: Start: 09-10-2015 End: 03-11-2016 *Hepatic Function Panel *Hepatic Function Panel [facility] Work Phone: Start: 09-10-2015 End: 03-11-2016 Lipid panel [AGGREGATE] *Lipid Profile CC PCP [facility] Work Phone: Start: 03-14-2015 End: 03-14-2015 [facility] Work Phone: Start: 03-14-2015 End: 03-14-2015 Ecg routine ecg w/least 12 lds w/i&r EKG (In office) [facility] Work Phone: Start: 03-14-2015 End: 03-14-2015 Follow Up Appt 6 months Follow Up Appt 6 months [facility] Work Phone: Start: 03-14-2015 End: 03-14-2015 [facility] Work Phone: Start: 03-14-2015 End: 03-14-2015 Electrocardiogram, complete EKG (In office) [facility] Work Phone: Start: 03-14-2015 End: 03-14-2015 Follow Up Appt 6 months Follow Up Appt [address] [facility] [facility] Work Phone: Start: 03-11-2015 End: 03-11-2015 *Hepatic Function Panel *Hepatic Function Panel [facility] Work Phone: Start: 03-11-2015 End: 03-11-2015 Lipid 1996 panel *Lipid Profile CC PCP [facility] Work Phone: Start: 03-11-2015 End: 03-11-2015 *Hepatic Function Panel *Hepatic Function Panel [facility] Work Phone: Start: 03-11-2015 End: 03-11-2015 Lipid panel [AGGREGATE] *Lipid Profile CC PCP [facility] Work Phone: Start: 09-12-2014 End: 03-05-2015 Chest x-ray X-Ray, Chest, PA & Lateral [facility] Work Phone: Start: 09-12-2014 End: 09-12-2014 Follow Up Appt 6 months Follow Up Appt 6 months [facility] Work Phone: Start: 09-12-2014 End: 09-12-2014 MMM MM [facility] Work Phone: Start: 09-12-2014 End: 03-05-2015 Chest x-ray X-Ray, Chest, PA & Lateral [facility] Work Phone: Start: 09-12-2014 End: 09-12-2014 Follow Up Appt 6 months Follow Up Appt 6 months [facility] Work Phone: Start: 09-12-2014 End[facility]-12-[facility] Work Phone: Start: 09-02-2014 End: 09-09-2014 *Hepatic Function Panel *Hepatic Function Panel [facility] Work Phone: Start: 09-02-2014 End: 09-09-2014 Lipid 1996 panel *Lipid Profile CC PCP [facility] Work Phone: Start: 09-02-2014 End: 09-09-2014 *Hepatic Function Panel *Hepatic Function Panel [facility] Work Phone: Start: 09-02-2014 End: 09-09-2014 Lipid panel [AGGREGATE] *Lipid Profile CC PCP [facility] Work Phone: Start: 03-13-2014 End: 03-13-2014 Ecg routine ecg w/least 12 lds w/i&r EKG (In office) [facility] Work Phone: Start: 03-13-2014 End: 03-13-2014 Electrocardiogram, complete EKG (In office) [facility] Work Phone: Start: 02-27-2014 End: 03-07-2014 *Hepatic Function Panel *Hepatic Function Panel [facility] Work Phone: Start: 02-27-2014 End: 03-05-2015 MICROBIOLOGY DIRECTOR MICROBIOLOGY DIRECTOR [facility] Work Phone: Start: 02-27-2014 End: 03-13-2014 Ecg routine ecg w/least 12 lds w/i&r EKG (In office) [facility] Work Phone: Start: 02-27-2014 End: 03-05-2015 Follow Up Appt 6 months Follow Up Appt 6 months [facility] Work Phone: Start: 02-27-2014 End: 03-07-2014 Lipid 1996 panel *Lipid Profile CC PCP [facility] Work Phone: Start: 02-27-2014 End: 03-07-2014 *Hepatic Function Panel *Hepatic Function Panel [facility] Work Phone: Start: 02-27-2014 End: 03-05-2015 MICROBIOLOGY DIRECTOR MICROBIOLOGY DIRECTOR [facility] Work Phone: Start: 02-27-2014 End: 03-13-2014 Electrocardiogram, complete EKG (In office) [facility] Work Phone: Start: 02-27-2014 End: 03-05-2015 Follow Up Appt 6 months Follow Up Appt [address] [facility] Work Phone: Start: 02-27-2014 End: 03-07-2014 Lipid panel [AGGREGATE] *Lipid Profile CC PCP [facility] Work Phone: Start: 08-24-2013 End: 08-24-2013 Follow Up Appt 6 months Follow Up Appt 6 months [facility] Work Phone: Start: 08-24-2013 End: 08-24-2013 MMM MM [facility] Work Phone: Start: 08-24-2013 End: 08-24-2013 Nuclear stress test -adenosine Nuclear stress test -adenosine [facility] Work Phone: Start: 08-24-2013 End: 08-24-2013 Follow Up Appt 6 months Follow Up Appt [address] [facility] Work Phone: Start: 08-24-2013 End: 08-24-2013 MMM [facility] Work Phone: Start: 08-24-2013 End: 08-24-2013 Nuclear stress test -adenosine Nuclear stress test -adenosine [facility] Work Phone: Start: 04-04-2013 End: 04-09-2013 *Hepatic Function Panel *Hepatic Function Panel [facility] Work Phone: Start: 04-04-2013 End: 04-09-2013 Lipid 1996 panel *Lipid Profile CC PCP [facility] Work Phone: Start: 04-04-2013 End: 04-09-2013 *Hepatic Function Panel *Hepatic Function Panel [facility] Work Phone: Start: 04-04-2013 End: 04-09-2013 Lipid panel [AGGREGATE] *Lipid Profile CC PCP [facility] Work Phone: Start: 12-27-2012 End: 12-27-2012 24 hour holter monitor 24 hour holter monitor [facility] Work Phone: Start: 12-27-2012 End: 12-27-2012 [facility] Work Phone: Start: 12-27-2012 End: 12-27-2012 Ecg routine ecg w/least 12 lds w/i&r EKG (In office) [facility] Work Phone: Start: 12-27-2012 End: 12-27-2012 Follow Up Appt 6 months Follow Up Appt 6 months [facility] Work Phone: Start: 12-27-2012 End: 12-27-2012 24 hour holter monitor 24 hour holter monitor [facility] Work Phone: Start: 12-27-2012 End: 12-27-2012 MICROBIOLOGY DIRECTOR [facility] Work Phone: Start: 12-27-2012 End: 12-27-2012 Electrocardiogram, complete EKG (In office) [facility] Work Phone: Start: 12-27-2012 End: 12-27-2012 Follow Up Appt 6 months Follow Up Appt [address] [facility] Work Phone: Start: 06-23-2012 End: 06-23-2012 Ecg routine ecg w/least 12 lds w/i&r EKG (In office) [facility] Work Phone: Start: 06-23-2012 End: 06-23-2012 Follow Up Appt 6 months Follow Up Appt 6 months [facility] Work Phone: Start: 06-23-2012 End: 06-23-2012 MMM [facility] Work Phone: Start: 06-23-2012 End: 06-23-2012 Electrocardiogram, complete EKG (In office) [facility] Work Phone: Start: 06-23-2012 End: 06-23-2012 Follow Up Appt 6 months Follow Up Appt [address] [facility] Work Phone: Start: 06-23-2012 End: 06-23-2012 MMM [facility] Work Phone: Start: 06-02-2012 End: 10-04-2012 *Hepatic Function Panel *Hepatic Function Panel [facility] Work Phone: Start: 06-02-2012 End: 10-04-2012 Lipid 1996 panel *Lipid Profile [facility] Work Phone: Start: 06-02-2012 End: 10-04-2012 *Hepatic Function Panel *Hepatic Function Panel [facility] Work Phone: Start: 06-02-2012 End: 10-04-2012 Lipid panel [AGGREGATE] *Lipid Profile [facility] Work Phone: Start: 12-27-2011 End: 10-04-2012 *Hepatic Function Panel *Hepatic Function Panel [facility] Work Phone: Start: 12-27-2011 End: 10-04-2012 Lipid 1996 panel *Lipid Profile [facility] Work Phone: Start: 12-27-2011 End: 10-04-2012 *Hepatic Function Panel *Hepatic Function Panel [facility] Work Phone: Start: 12-27-2011 End: 10-04-2012 Lipid panel [AGGREGATE] *Lipid Profile [facility] [employer] Work Phone: Start: 11-03-2011 End: 11-03-2011 Follow Up Appt 6 months Follow Up Appt 6 months [facility] Work Phone: Start: 11-03-2011 End: 11-03-2011 Follow Up Appt 6 months Follow Up Appt [address] [facility] Work Phone: Start: 08-03-2011 End: 12-29-2011 *Hepatic Function Panel *Hepatic Function Panel [facility] Work Phone: Start: 08-03-2011 End: 12-29-2011 Lipid 1996 panel *Lipid Profile [facility] Work Phone: Start: 08-03-2011 End: 12-29-2011 *Hepatic Function Panel *Hepatic Function Panel [facility] Work Phone: Start: 08-03-2011 End: 12-29-2011 Lipid panel [AGGREGATE] *Lipid Profile [facility] [employer] Work Phone: Start: 02-24-2011 End: 02-24-2011 Follow Up Appt 6 months Follow Up Appt 6 months [facility] Work Phone: Start: 02-24-2011 End: 02-24-2011 Follow Up Appt 6 months Follow Up Appt [address] [facility] Work Phone: Patient Education HYPERLIPIDEMIA , CORONARY%20ARTERY%20DIS EASE, LIPID%20PROFILE [facility] Work Phone: Additional Source Comments FOR [...] BE BASED ON THE PRIMARY CLINICAL RECORDS. [facility] [employer] [facility] provides no warranty or guarantee of the accuracy or completeness of information in this document.
== END | disposition home or self-care (01) ==
LOC: CVS 08:49
PROVIDERS: PCP Family Medicine; Referring Provider Nurse Practitioner Gerontology; Visit Provider Nurse Practitioner Gerontology
DX: I42.8 Other cardiomyopathies (principal); I50.20 Unspecified systolic (congestive) heart failure
CPT/HCPCS: 93306; Q9957; A4216; C8929

== ENCOUNTER → 2024-04-16 | Outpatient (CLI) | payer MEDICARE, SELFPAY ==
[2024-04-16 15:56] LABS: Absolute Lymphocyte Count 0.83 X10^3/uL (0.83-4.51); Absolute Neutrophil Count 4.8 X10^3/uL (2.0-7.7); Basophil# 0.04 X10^3/uL; Basophil% 0.6 % (0-1); Eosinophils% 3.1 % (0-5); Hematocrit 38.5 % (40-54); Hemoglobin 11.5 g/dL (13.0-16.5); Lymphocyte # 0.83 X10^3/ul (0.83-4.51); Lymphocyte % 12.8 % (19-41); Mean Corp Hgb Conc 29.9 g/dL (32-36); Mean Corpuscular Volume 90.4 fL (80-94); Mean Platelet Vol. 11.5 fl (6.2-12.0); Monocyte# 0.46 X10^3/uL; Monocyte% 7.1 % (0-10); NRBC Flagged by Analyzer 0 % (0-5); Neutrophil # 4.84 X10^3/uL (2.7-7.7); Neutrophil % 74.7 % (47-70); Platelet Count 184 K/mm3 (150-450); RBC Distribution Width CV 14.9 % (11.6-14.6); RBC Distribution Width SD 49.4 fl (35.1-43.9); Red Blood Count 4.26 M/mm3 (4.6-6.2); White Blood Count 6.5 K/mm3 (4.4-11.0)
[2024-04-16 16:37] LABS: ALB/GLOB Ratio 1.1 RATIO (0.9-2.4); AST(SGOT) 17 U/L (15-37); Alanine Aminotransfer ALT/SGPT 18 U/L (16-61); Albumin, Serum 3.6 g/dL (3.2-5.0); Alkaline Phosphatase 74 U/L (45-117); Anion Gap 4 (5-15); BUN 26 mg/dL (7-18); BUN/Creat Ratio 19.1 RATIO (10-20); Calcium,Total 9.1 mg/dL (8.5-10.1); Chloride 107 mmol/L (98-107); Cholesterol 115 mg/dL (200); Creatinine, Serum 1.36 mg/dL (0.70-1.30); EST Glomerular Filtration Rate 53 mL/min (>60); Est Glom Filt Rate - Afr Amer 65 mL/min (>60); Ferritin 30 ng/mL (26-388); Globulin 3.4 g/dL (2.2-4.2); Glucose 125 mg/dL (74-106); High Density Lipoprotein 41 mg/dL; PSA,Total - Annual Screen 0.86 ng/mL (0.00-4.00); Potassium 4.2 mmol/L (3.5-5.1); Sodium Level 140 mmol/L (136-145); Triglycerides 71 mg/dL; Very Low Density Lipoprotein 14 mg/dL (5-40)
[2024-04-16 16:38] LABS: Hemoglobin A1c 6.5 % (3.8-5.6)
== END | disposition home or self-care (01) ==
LOC: MFPLAB 11:42
PROVIDERS: PCP Family Medicine; Referring Provider Family Medicine; Visit Provider Family Medicine
DX: E11.22 Type 2 diabetes mellitus with diabetic chronic kidney disease (principal); I50.9 Heart failure, unspecified; I25.10 Atherosclerotic heart disease of native coronary artery without angina pectoris; Z53.20 Procedure and treatment not carried out because of patient's decision for unspecified reasons; D64.9 Anemia, unspecified; Z12.5 Encounter for screening for malignant neoplasm of prostate

== ENCOUNTER → 2024-10-18 | Outpatient (CLI) | payer MEDICARE, SELFPAY ==
[2024-10-18 16:35] LABS: Creatinine, Urine (random) 138.00 mg/dL (39.00-259.00); Microalbumin,Random Urine 24.5 mg/L (<20 mg/L)
[2024-10-18 16:37] LABS: AST(SGOT) 15 U/L (<=37); Alanine Aminotransfer ALT/SGPT 7 U/L (<=46); Albumin, Serum 3.8 g/dL (3.4-4.8); Alkaline Phosphatase 69 U/L (40-129); Anion Gap 9 (5-15); BUN 26 mg/dL (4-19); BUN/Creat Ratio 20.6 RATIO (10-20); Calcium,Total 9.3 mg/dL (7.6-11.0); Carbon Dioxide 25.5 mmol/L (21.0-32.0); Chloride 107 mmol/L (98-108); Globulin 2.1 g/dL (2.2-4.2); Glucose 123 mg/dL (70-99); Potassium 4.6 mmol/L (3.3-5.1)
== END | disposition home or self-care (01) ==
LOC: MFPLAB 12:31
PROVIDERS: PCP Family Medicine; Referring Provider Family Medicine; Visit Provider Family Medicine
DX: E11.22 Type 2 diabetes mellitus with diabetic chronic kidney disease (principal); N18.30 Chronic kidney disease, stage 3 unspecified
CPT/HCPCS: 36415; 80053; 82043; 82570; 83036